=== PATIENT | female | born 1970 | race African-American/Black ===

== ENCOUNTER 2017-07-23 11:24 | Emergency (ER) | payer OTHER | END 2017-07-23 13:52 | disposition home or self-care (01) | LOC: ERS 11:24 | DX: M54.5 Low back pain (principal); G89.29 Other chronic pain; G43.909 Migraine, unspecified, not intractable, without status migrainosus; E03.9 Hypothyroidism, unspecified; I10 Essential (primary) hypertension; F31.9 Bipolar disorder, unspecified | CPT/HCPCS: 99283 ==

== ENCOUNTER 2017-09-13 09:44 | Outpatient (CLI) | payer OTHER ==
--- NOTE | 2017-09-18 14:52 | MMO ---
BILATERAL SCREENING MAMMOGRAM: INDICATION: Annual exam. COMPARISON: Prior exam dated 05/24/13. FINDINGS: The interpretation of this examination was assisted with computer-aided detection. There are scattered fibroglandular elements. There is a stable benign-appearing lymph node within the left breast. No suspicious mass, cluster of microcalcifications, or area of architectural distortion is evident. IMPRESSION: BI-RADS category 2 - benign. Recommend routine annual mammographic screening. POS: [facility]
== END 2017-09-13 09:45 | disposition home or self-care (01) ==
LOC: SCSMAMMO 09:44
PROVIDERS: ATTEND Family Medicine
DX: Z12.31 Encounter for screening mammogram for malignant neoplasm of breast (principal)
CPT/HCPCS: 77067

== ENCOUNTER 2018-07-15 20:39 | Observation (INO) | payer OTHER ==
--- NOTE | 2018-07-15 21:48 | RAD ---
TWO VIEW CHEST: Indications: Chest pain. FINDINGS: Lungs appear clear. No infiltrate or vascular congestion seen. Heart and mediastinum unremarkable. IMPRESSION: No acute abnormality. POS: [facility]
[2018-07-15 21:49] LABS: #Eosinphils 0.1 thou/uL (0.0-0.7); #Lymphocytes 0.7 thou/uL (1.20-3.40); #Monocytes 0.6 thou/uL (0.11-0.59); %Basophils 0.7 % (0.0-1.0); %Eosinophils 1.2 % (0.0-10.0); %Lymphocytes 15.9 % (21.0-51.0); %Monocytes 14.1 % (0.0-10.0); %Neutrophils 68.1 % (42.0-75.0); Hemoglobin 12.7 g/dL (12.0-16.0); Mean Corpuscular HGB CONC 31.9 g/dL (32.0-36.0); Mean Corpuscular Hemoglobin 27.1 pg (27.0-31.0); Mean Corpuscular Volume 84.7 fL (78.0-98.0); Mean Platelet Volume 7.5 fL (7.4-10.4); Platelet Count 263 thou/uL (130-400); RBC Distribution Width 14.4 % (11.5-14.5); White Blood Cell (WBC) Count 4.4 thou/uL (4.8-10.8)
[2018-07-15 22:12] LABS: ALT (SGPT) 35 U/L (8-55); AST (SGOT) 38 U/L (5-34); Albumin 3.7 g/dL (3.5-5.0); Alkaline Phosphatase 157 U/L (40-150); Anion Gap 15 mmol/L (10-20); BUN (Urea Nitrogen) 19 mg/dL (7.0-18.7); Bilirubin, Total 0.4 mg/dL (0.2-1.2); CK (CPK) 252 U/L (29-168); Calc. Creatinine Clearance 0 mL/min (70-130); Carbon Dioxide 20 mmol/L (22-29); Chloride 109 mmol/L (98-107); Estimated GFR-MDRD 29; Glucose 93 mg/dL (70-105); Lipase 44 U/L (8-78); Potassium 3.7 mmol/L (3.5-5.1); Protein, Total 9.7 g/dL (6.0-8.3); Sodium 140 mmol/L (136-145)
[2018-07-15] MEDS ORDERED: Nitroglycerin 2% Ointment 1 INCH/1 GM Packet ONE (23:40)
--- NOTE | 2018-07-16 01:15 | PDOC.FPRHP ---
- History of Present Illness Chief Complaint: Chest pain History of Present Illness: 48 yo AAF with PMH HTN, hypothyroid, bipolar, and schizophrenia, presents with sharp, burning sternal chest pain that radiates to her left arm and epigastric region for the past few days. Worse with exertion, associated with dyspnea. Pain lasts from 1-10 minutes, improves with rest. Not associated with sweats or nausea. Patient reports occasional palpitations. She also reports weakness in her legs with exertion, and states it feels "like my legs are going to give out on me." In the ED, CXR WNL. EKG showed possible Q waves, otherwise NSR. She was given nitropaste and ASA. - Allergies/Adverse Reactions Allergies Allergy/AdvReac Type Severity Reaction Status Date / Time aspirin Allergy Hives Verified 07/16/18 02:04 Sulfa (Sulfonamide Allergy Hives Verified 07/16/18 02:04 Antibiotics) trazodone Allergy Hives Verified 07/16/18 02:04 - Home Medications Medication Instructions Recorded Confirmed Type Benztropine [Cogentin] 2 mg PO HS 01/17/15 07/16/18 History Levothyroxine Sodium [Synthroid] 200 mcg PO DAILY 01/17/15 07/16/18 History Ziprasidone HCl [Geodon] 160 mg PO HS 01/17/15 07/16/18 History Metronidazole [metroNIDAZOLE] 500 tab PO DAILY 10/09/15 07/16/18 History Nortriptyline HCl 25 mg PO HS 10/09/15 07/16/18 History - History PMHx: bipolar, schizophrenia, HTN, hypothyroidism PSHx: cholecystecotmy, CSx5 FHx: CHF in mother, father, and grandmother; Cancer (unknown type) in great aunt Social: Denied tobacco, alcohol, or drug use - Review of Systems General: reports: weight/appetite/sleep changes (decreased appetite). denies: fever/chills, night sweats Eyes: reports: vision changes. denies: eye pain ENT: reports: nasal congestion, rhinorrhea, other (+sore throat) Respiratory: reports: cough, congestion, shortness of breath Cardiovascular: reports: chest pain, palpitation (occasional) Gastrointestinal: reports: abdominal pain. denies: nausea, vomiting, diarrhea, constipation, GI bleeding Genitourinary: denies: dysuria, other (no hematuria) Skin: denies: rashes, lesions Musculoskeletal: denies: pain, stiffness Neurological: reports: weakness. denies: numbness Psychological: reports: other (schizophrenia and bipolar) - Vital signs BP: [119/74] HR: [107] RR: [22] Tmax: [98] Pox: [97]% on [RA] Wt: [131 kg] - Physical Exam Constitutional: NAD, awake, alert and oriented HEENT: normocephalic and atraumatic, PERRLA, EOMI, conjunctiva clear, grossly normal hearing, MMM, oropharynx clear Neck: supple, other (+LAD) Heart: RRR, normal S1/S2, no murmurs/rubs/gallops, pulses present, no edema Lungs: CTAB, no respiratory distress, good air movement, no rales/rhonchi, no wheezing, no retractions Abdomen: soft, non-tender, bowel sounds present, other (no masses, exam limited by obesity) Musculoskeletal: normal structure, normal tone Neurological: CN II-XII intact, normal sensation, DTRs 2+ Skin: no rash/lesions, good turgor, other (cap refill >2 seconds) Heme/Lymphatic: no unusual bruising or bleeding, no purpura Psychiatric: intact recent and remote memory FMR H&P: Results - Labs Result Diagrams: 07/16/18 04:12 07/16/18 04:12 Lab results: WBC 4.4 thou/uL (4.8-10.8) L 07/15/18 21:43 Hgb 12.7 g/dL (12.0-16.0) 07/15/18 21:43 Hct 39.8 % (36.0-47.0) 07/15/18 21:43 MCV 84.7 fL (78.0-98.0) 07/15/18 21:43 Plt Count 263 thou/uL (130-400) 07/15/18 21:43 Neutrophils % 68.1 % (42.0-75.0) 07/15/18 21:43 Sodium 140 mmol/L (136-145) 07/15/18 21:43 Potassium 3.7 mmol/L (3.5-5.1) 07/15/18 21:43 Chloride 109 mmol/L (98-107) H 07/15/18 21:43 Carbon Dioxide 20 mmol/L (22-29) L 07/15/18 21:43 BUN 19 mg/dL (7.0-18.7) H 07/15/18 21:43 Creatinine 2.20 mg/dL (0.6-1.1) H 07/15/18 21:43 Glucose 93 mg/dL (70-105) 07/15/18 21:43 Calcium 10.0 mg/dL (7.8-10.44) 07/15/18 21:43 Total Bilirubin 0.4 mg/dL (0.2-1.2) 07/15/18 21:43 AST 38 U/L (5-34) H 07/15/18 21:43 ALT 35 U/L (8-55) 07/15/18 21:43 Alkaline Phosphatase 157 U/L (40-150) H 07/15/18 21:43 Creatine Kinase 252 U/L (29-168) H 07/15/18 21:43 Serum Total Protein 9.7 g/dL (6.0-8.3) H 07/15/18 21:43 Albumin 3.7 g/dL (3.5-5.0) 07/15/18 21:43 Lipase 44 U/L (8-78) 07/15/18 21:43 - EKG Interpretation EKG: possible q waves present - Radiology Interpretation Chest x-ray Status: image reviewed by me, report reviewed by me Additional comment: No acute cardiopulmonary process FMR H&P: A/P - Problem List (1) MARITZA (acute kidney injury) Current Visit: Yes Status: Acute Code(s): N17.9 - ACUTE KIDNEY FAILURE, UNSPECIFIED (2) Atypical chest pain Current Visit: No Status: Acute Code(s): R07.89 - OTHER CHEST PAIN (3) Bipolar 1 disorder Current Visit: No Status: Chronic Code(s): F31.9 - BIPOLAR DISORDER, UNSPECIFIED (4) GERD (gastroesophageal reflux disease) Current Visit: No Status: Chronic Code(s): K21.9 - GASTRO-ESOPHAGEAL REFLUX DISEASE WITHOUT ESOPHAGITIS (5) Hypertension Current Visit: No Status: Chronic Code(s): I10 - ESSENTIAL (PRIMARY) HYPERTENSION Qualifiers: Hypertension type: essential hypertension Qualified Code(s): I10 - Essential (primary) hypertension (6) Hypothyroidism Current Visit: No Status: Chronic Code(s): E03.9 - HYPOTHYROIDISM, UNSPECIFIED - Plan 48 yo F presents with atypical chest pain #Atypical chest pain, ACS vs PE vs GERD vs other - Exertional chest pain, associated with SOB, described as sharp and burning, improves with rest - Tachycardic to 107, R 22, BP stable, 97% on RA - EKG showed possible Q waves - CXR WNL - Lipase 44 - D-dimer elevated - Trop negx1 - VQ scan pending - Cardiolite stress in the AM - CK 252 #MARITZA -Cr increased to 2.2 -Avoid nephrotoxic agents #HTN -Losartan 50 mg PO daily #Bipolar, Schizophrenia -Continue nortriptyline, venlafaxine 75, quitiapine 300 mg nightly; -Benztropine mesylate 2 mg PO qhs -Continue geodon #Hypothyroid -Synthroid 200 mcg daily #Gerd -pantoprazole FMR H&P: Upper Level - Pertinent history 48F present for several day of CP, but with sudden worsening today. States that this has happen previously on frequent basis and she had seen a physician for this, was started on a medication, but doesn't know what it was. Pain happens at rest and while walking. She associate it with SOB, nausea and vomiting. 8/10 pain. Sharp, substernal. Not relieved with anything. She reports pre existing schizophrenic and bipolar disorder. She reports increased strength with her in the hospital. In ER, she was notdd to be tachy, pulse in the 100's. EKG found possible q waves , and without st changes. CXR and cardiac enzyme negative. D-dimer positive. Incidentally, found to have an MARITZA. Heart score 4, one each for moderate suspicion, age greater then 45, nonspecfic ekg changes and risk factor of obesity/thn - Pertinent findings Gen: alert, oriented, has many requests for nursing HEENT: Normocephalic, midline trachea, moist mucosal membrane CV: RRR with no apparent m/g/r Resp: CTA bilat GI: Soft, nontender, normoactive bowel Ext: No edema MSK: no deformeties noted, no pain on chest wall palpation Neuro: Apparently 1/5 strength in both LE, but nursing reports patient was capable of ambulating Psych: At time anxious, eccentric manner - Plan Date/Time: 07/16/18 0115 I, [Samuel Graf], have evaluated this patient and agree with findings/plan as outlined by internal recruiter resident. Pertinent changes/additions are listed here. 1. PE rule out - Concern with elevate d-dimer, tachycardia, subjective SOB - D-dimer may be elevated because of MARITZA - Plan for v-q scan as patient is hemodynamically stable and has MARITZA 2. ACS rule out - Trop negative, but has heart score 4 - Trend trop, stress test tomorrow 3. MARITZA - At this point, no obvious source based on history - Plan for empiric fluid hydration, recheck CMP - May consider FENA study if issues continue Attending Addendum - Attending Addendum Date/Time: 07/16/18 1606 I personally evaluated the patient and discussed the management with Dr. Higuera I agree with the History, Examination, Assessment and Plan documented above with any addition or exceptions noted below. 48 yo female with history of obesity and HTN presents for evaluation of intermittent chest pain. Patient reports intermittent chest pain over the past month. Sometimes provoked with activity. Sometimes provoked at rest. Burning type pain. Radiates to epigastric region. Occasionally associated with SOB. VS reviewed. Labs reviewed. Imaging reviewed. Atypical CP: Does not appear to be cardiac in nature. Heart score 3. Trop negative x3. No changes on ekg. CP resolved. Treat for GERD. Consider outpatient stress testing. MARITZA: Unsure etiology. Workup pending. Start on IVFs. CR improved overnight. Would add renal ultrasound with arterial dopplers. Elevated d-dimer: Likely related to MARITZA. Wells score = 1.5. V/Q scan low risk. HTN: Controlled. Javier
[2018-07-16 01:29] LABS: Troponin I 0.011 ng/mL (< 0.028)
[2018-07-16 01:44] VITALS: BMI 44.9
[2018-07-16] MEDS ORDERED: Ondansetron ODT 4 MG TAB SL PRN (01:48)
[2018-07-16] MEDS ORDERED: Ondansetron PF 4 MG/2 ML Vial IVP PRN (01:48)
[2018-07-16] MEDS ORDERED: Enoxaparin Sodium 30 MG/0.3 ML SYRINGE SC SCH ×2 (02:00→21:00)
[2018-07-16] MEDS ORDERED: Benztropine 1 MG TAB PO SCH ×2 (02:45→21:00)
[2018-07-16] MEDS ORDERED: Nortriptyline HCl 25 MG CAP PO SCH ×2 (02:45→21:00)
[2018-07-16] MEDS: Levothyroxine Sodium 100 MCG TAB PO SCH (04:23)
[2018-07-16] MEDS: Acetaminophen 325 MG TAB PO PRN ×2 (04:25→09:10)
[2018-07-16 05:06] LABS: #Eosinphils 0.1 thou/uL (0.0-0.7); #Lymphocytes 0.5 thou/uL (1.20-3.40); #Monocytes 0.5 thou/uL (0.11-0.59); #Neutrophils 2.1 thou/uL (1.40-6.50); %Basophils 0.6 % (0.0-1.0); %Eosinophils 1.7 % (0.0-10.0); %Lymphocytes 15.8 % (21.0-51.0); %Monocytes 14.1 % (0.0-10.0); %Neutrophils 67.8 % (42.0-75.0); Hemoglobin 11.2 g/dL (12.0-16.0); Mean Corpuscular HGB CONC 32.9 g/dL (32.0-36.0); Mean Corpuscular Hemoglobin 27.6 pg (27.0-31.0); Mean Platelet Volume 7.7 fL (7.4-10.4); Platelet Count 219 thou/uL (130-400); Red Blood Cell (RBC) Count 4.06 mill/uL (4.20-5.40); White Blood Cell (WBC) Count 3.2 thou/uL (4.8-10.8)
[2018-07-16 05:27] LABS: Anion Gap 12 mmol/L (10-20); BUN (Urea Nitrogen) 21 mg/dL (7.0-18.7); Calc. Creatinine Clearance 67 mL/min (70-130); Calcium 9.6 mg/dL (7.8-10.44); Carbon Dioxide 24 mmol/L (22-29); Cardiac Risk 4.2 (Less than 4.5); Chloride 107 mmol/L (98-107); Cholesterol 172 mg/dl (< 200 Desired); Estimated GFR-MDRD 30; Glucose 100 mg/dL (70-105); HDL Cholesterol 41 mg/dL (>60 Neg Risk); LDL Cholesterol, Calculated 111 mg/dL; Potassium 3.7 mmol/L (3.5-5.1); Sodium 139 mmol/L (136-145); Triglycerides 101 mg/dL (Less than 150)
[2018-07-16 05:31] LABS: Troponin I Less than 0.010 ng/mL (< 0.028)
[2018-07-16] MEDS ORDERED: Lactated Ringer's 1,000 ML IV SCH (09:00)
[2018-07-16] MEDS: Venlafaxine XR 37.5 MG CAP PO SCH (09:10)
[2018-07-16] MEDS: Losartan 25 MG TAB PO SCH (09:10)
[2018-07-16 09:11] LABS: Amphetamine Not Detected (NotDetected); Barbiturates Screen Detected (NotDetected); Benzodiazepine Screen Not Detected (NotDetected); Cocaine Metabolite Screen Not Detected (NotDetected); Medtox Control Line Valid? VALID (VALID); Medtox Reader # READER 4; Methadone Not Detected (NotDetected); Methamphetamine Not Detected (NotDetected); Opiate Screen Not Detected (NotDetected); Oxycodone Screen Not Detected (NotDetected); Phencyclidine (PCP) Not Detected (NotDetected); THC/Cannabinoid Screen Not Detected (NotDetected); Tricyclic Screen Detected (NotDetected)
[2018-07-16 09:41] LABS: Creatinine, Urine 52.54 mg/dL (47-110)
--- NOTE | 2018-07-16 11:24 | NM ---
VQ SCAN: HISTORY: Chest pain. TECHNIQUE: A ventilation perfusion scan was performed using 10.1 mCi Xenon-133 by inhalation for the ventilation study followed by the intravenous administration of 5.9 mCi technetium-99m MAA for the perfusion sca n. FINDINGS: Correlation is made with the chest radiograph of previous night. Fairly homogeneous tracer distribution is seen in the lungs on both ventilation perfusion scans witho ut mismatched. Pleural based, wedge-shaped, segmental/subsegmental perfusion defects. IMPRESSION: Very low probability for pulmonary embolism. POS: [facility]
[2018-07-16] MEDS ORDERED: Senokot 8.6 MG TAB PO PRN (11:28)
[2018-07-16] MEDS: Lactated Ringer's 1,000 ML IV SCH ×2 (12:00→20:09)
[2018-07-16] MEDS: Acetaminophen 500 MG TAB PO PRN ×3 (13:08→21:30)
[2018-07-16] MEDS ORDERED: Ondansetron PF 4 MG/2 ML Vial SLOW IVP PRN (20:25)
[2018-07-16] MEDS ORDERED: Ondansetron ODT 4 MG TAB PO PRN (20:25)
[2018-07-17] MEDS: Lactated Ringer's 1,000 ML IV SCH (02:29)
[2018-07-17] MEDS: Levothyroxine Sodium 100 MCG TAB PO SCH (04:57)
[2018-07-17 06:12] LABS: Anion Gap 10 mmol/L (10-20); BUN (Urea Nitrogen) 17 mg/dL (7.0-18.7); Calc. Creatinine Clearance 76 mL/min (70-130); Calcium 9.1 mg/dL (7.8-10.44); Carbon Dioxide 24 mmol/L (22-29); Chloride 107 mmol/L (98-107); Estimated GFR-MDRD 34; Glucose 92 mg/dL (70-105); Potassium 3.5 mmol/L (3.5-5.1); Sodium 137 mmol/L (136-145)
[2018-07-17 08:21] VITALS: BP 111/73; TEMP 97.9
[2018-07-17] MEDS: Losartan 25 MG TAB PO SCH (08:38)
[2018-07-17] MEDS: Venlafaxine XR 37.5 MG CAP PO SCH (08:38)
--- NOTE | 2018-07-17 11:54 | PDOC.FM ---
- Subjective Subjective: Pt reports feeling all better this AM. CP is resolved. SOB is resolved. Pt reports today that she has hx of GERD and that this pain has actually felt exactly like that GI pain that she frequently has. She does not take medications at home for this. no fever/chills, no sob no cp - Objective MAR Reviewed: Yes Vital Signs & Weight: Vital Signs (12 hours) Temp Pulse Resp BP BP Pulse Ox 07/17/18 07:47 97.9 F 86 18 111/73 92 L 07/17/18 05:00 84 18 105/72 94 L 07/17/18 00:00 98.1 F 90 16 94/57 L 94 L Weight Admit Weight 130.045 kg Weight 130.045 kg I&O: 07/16/18 07/17/18 07/18/18 06:59 06:59 06:59 Intake Total 300 3600 Output Total 275 Balance 25 3600 Result Diagrams: 07/16/18 04:12 07/17/18 05:32 Phys Exam - Physical Examination Constitutional: NAD HEENT: moist MMs, oral pharynx no lesions Neck: no nodes, no JVD Respiratory: no wheezing, clear to auscultation bilateral Cardiovascular: RRR, no significant murmur Gastrointestinal: soft, non-tender Musculoskeletal: no edema, pulses present Neurological: non-focal, normal sensation Lymphatic: no nodes Psychiatric: normal affect, A&O x 3 Skin: no rash, normal turgor Dx/Plan (1) MARITZA (acute kidney injury) Code(s): N17.9 - ACUTE KIDNEY FAILURE, UNSPECIFIED Status: Acute (2) Atypical chest pain Code(s): R07.89 - OTHER CHEST PAIN Status: Acute (3) Bipolar 1 disorder Code(s): F31.9 - BIPOLAR DISORDER, UNSPECIFIED Status: Chronic (4) GERD (gastroesophageal reflux disease) Code(s): K21.9 - GASTRO-ESOPHAGEAL REFLUX DISEASE WITHOUT ESOPHAGITIS Status: Chronic (5) Hypertension Code(s): I10 - ESSENTIAL (PRIMARY) HYPERTENSION Status: Chronic Qualifiers: Hypertension type: essential hypertension Qualified Code(s): I10 - Essential (primary) hypertension (6) Hypothyroidism Code(s): E03.9 - HYPOTHYROIDISM, UNSPECIFIED Status: Chronic (7) Schizophrenia Code(s): F20.9 - SCHIZOPHRENIA, UNSPECIFIED Status: Chronic - Plan Plan: 48 yo F presents with atypical chest pain Atypical chest pain, likely 2/2 GERD A- description today of pain is typical with gerd. EKG, and CXR WNL. D-dimer elevated on admission but VQ scan negative. trops negative. P- Will DC today with plans for outpt stress test - DC home with PPI MARITZA A-Cr increased to 2.2-> 1.89 (with fluids.), up from baseline of 1.7. Fena 2.1 showing intrinsic etiology. P- Will plan for outpt renal US. HTN -Losartan 50 mg PO daily Bipolar, Schizophrenia -Continue nortriptyline, venlafaxine 75, quitiapine 300 mg nightly; -Benztropine mesylate 2 mg PO qhs -Continue geodon Hypothyroid -Synthroid 200 mcg daily
--- NOTE | 2018-07-18 04:28 | DIS ---
DATE OF ADMISSION: 07/16/2018 DATE OF DISCHARGE: 07/17/2018 RESIDENT: Leo Interiano MD ADMITTING ATTENDING: Dr. Butts. DISCHARGE ATTENDING: Dr. Butts. CONSULTS: None. PROCEDURES: 1. On 07/15/2018, chest x-ray. Impression, no acute abnormality. 2. On 07/16/2018, pulmonary perfusion imaging. Impression, very low probability for pulmonary embolism. PRIMARY DIAGNOSIS: Atypical chest pain secondary to gastroesophageal reflux disease. SECONDARY DIAGNOSES: Acute kidney injury, hypertension, bipolar, schizophrenia, and hypothyroidism. DISCHARGE MEDICATIONS: 1. Ziprasidone 160 mg p.o. at bedtime, resumed at home. 2. Levothyroxine sodium 200 mcg p.o. daily. 3. Benztropine 2 mg p.o. at bedtime. 4. Nortriptyline 25 mg p.o. at bedtime. 5. Acetaminophen 1000 mg p.o. q.4 hours p.r.n. 6. Losartan 50 mg p.o. daily. 7. Pantoprazole 40 mg p.o. daily. 8. Quetiapine fumarate 300 mg p.o. at bedtime, continued from home. 9. Venlafaxine 75 mg p.o. daily. DISCONTINUED MEDICATIONS: Metronidazole 500 mg p.o. daily. HISTORY OF PRESENT ILLNESS/HOSPITAL COURSE: This is a 48-year-old female, who presented to the emergency department with complaint of chest pain. Originally, the patient had complained that the chest pain was exertional and relieved by rest. However, the pain was sharp and substernal with radiation to the stomach. The patient was admitted for workup and rule out of coronary artery disease, etiology of chest pain. Troponins were negative x3. EKG was unremarkable as was chest x-ray. There was also concern for pulmonary embolism, so a V/Q scan was performed, which was also negative. On further history gaining from the patient, the patient reported the pain felt just like her long-standing gastroesophageal reflux disease pain and that taking pantoprazole in the hospital had made the pain go away. The patient was deemed stable for discharge and sent home with plans for outpatient stress test to complete workup and ruling out any cardiac etiology of pain, although the patient is extremely low risk and description of pain was not concerning. Hospital stay was otherwise complicated by acute kidney injury with creatinine reaching up to 2.13. Urine studies were done and FENa was calculated to be 2.1, which indicates intrinsic injury, although the patient's creatinine did react well to IV fluids reducing down to 1.89. All other chronic issues were managed with home medications. DISPOSITION: Stable. DISCHARGE INSTRUCTIONS: LOCATION: Home. DIET: Heart healthy. ACTIVITY: As tolerated. FOLLOWUP: Follow up with Dr. Cisse in seven days. Job ID: [id number]
== END 2018-07-17 10:42 | disposition home or self-care (01) ==
LOC: ERS 20:39 → 2SW 07-16 01:16
PROVIDERS: ADMIT Student in an Organized Health Care Education/Training Program; ATTEND Student in an Organized Health Care Education/Training Program
DX: K21.9 Gastro-esophageal reflux disease without esophagitis (principal); I10 Essential (primary) hypertension; N17.9 Acute kidney failure, unspecified; E03.9 Hypothyroidism, unspecified; F31.9 Bipolar disorder, unspecified; F20.9 Schizophrenia, unspecified; Z88.6 Allergy status to analgesic agent; Z88.2 Allergy status to sulfonamides; Z88.8 Allergy status to other drugs, medicaments and biological substances; Z90.49 Acquired absence of other specified parts of digestive tract; Z79.899 Other long term (current) drug therapy; Z98.890 Other specified postprocedural states
CPT/HCPCS: 36415; 71046; 78582; 80048; 80053; 80061; 80306; 82550; 82570; 83690; 84300; 84443; 84484; 85025; 85379; 93005; 96361; 96372; 96374; A9540; A9558; G0378; J1650; J2405

== ENCOUNTER 2018-08-15 12:20 | Observation (INO) | payer OTHER ==
--- NOTE | 2018-08-15 13:50 | RAD ---
CHEST TWO VIEWS: INDICATIONS: Chest pain. COMPARISON: 07/15/2018 FINDINGS: There are faint nodular densities, one of which overlies the superolateral left chest and the other a t the right lower lung zone, laterally. There is no lobar consolidation, effusion, or pneumothorax. The cardiac silhouette is normal in size. IMPRESSION: Faint nodular densities overlying the chest bilaterally. The possibility of underlying pulmonary nod ules is not excluded. Therefore, recommend a short-term follow-up two view chest series. If finding s persist on the follow-up exam, a CT thorax would be indicate to exclude underlying pulmonary nodule s. CODE LN POS: [facility]
[2018-08-15 14:05] LABS: #Lymphocytes 0.6 thou/uL (1.20-3.40); #Monocytes 0.3 thou/uL (0.11-0.59); #Neutrophils 1.1 thou/uL (1.40-6.50); %Eosinophils 0.5 % (0.0-10.0); %Lymphocytes 28.1 % (21.0-51.0); %Monocytes 14.5 % (0.0-10.0); %Neutrophils 56.9 % (42.0-75.0); Hemoglobin 11.2 g/dL (12.0-16.0); Mean Corpuscular HGB CONC 32.8 g/dL (32.0-36.0); Mean Corpuscular Hemoglobin 27.1 pg (27.0-31.0); Mean Corpuscular Volume 82.6 fL (78.0-98.0); Mean Platelet Volume 8.2 fL (7.4-10.4); Platelet Count 182 thou/uL (130-400); RBC Distribution Width 14.6 % (11.5-14.5); Red Blood Cell (RBC) Count 4.15 mill/uL (4.20-5.40)
[2018-08-15 14:27] LABS: ALT (SGPT) 40 U/L (8-55); AST (SGOT) 42 U/L (5-34); Alkaline Phosphatase 181 U/L (40-150); Anion Gap 12 mmol/L (10-20); BUN (Urea Nitrogen) 12 mg/dL (7.0-18.7); Bilirubin, Total 0.5 mg/dL (0.2-1.2); CK (CPK) 86 U/L (29-168); Calc. Creatinine Clearance 0 mL/min (70-130); Carbon Dioxide 22 mmol/L (22-29); Chloride 108 mmol/L (98-107); Estimated GFR-MDRD 38; Glucose 103 mg/dL (70-105); Potassium 3.8 mmol/L (3.5-5.1); Sodium 138 mmol/L (136-145)
[2018-08-15 15:01] LABS: BHCG - Serum Negative (NEGATIVE); Pregs Control Background? CLEAR/WHITE (CLR/WHITE); Pregs Control Bar Appear? YES (CONTROL BAR)
--- NOTE | 2018-08-15 16:08 | CT ---
CT ARTERIOGRAM CHEST WITH IV CONTRAST AND 3D MIP IMAGING: History: Chest pain. FINDINGS: There is good contrast opacification, pulmonary arteries and thoracic aorta with bovine origin of gre at vessels from the aortic arch. Scattered mild parenchymal opacity, favored to not be of significanc e. No pleural fluid or pneumothorax. Within the partially visualized upper abdomen, spleen is markedly enlarged at 17.3 cm length and is o f much greater volume than on prior CT abdomen from 2015. IMPRESSION: 1. No CT evidence of pulmonary embolus. 2. Severe splenomegaly. Cause is not evident. POS: [facility]
--- NOTE | 2018-08-15 18:02 | PDOC.FPRHP ---
- History of Present Illness Chief Complaint: chest pain History of Present Illness: 48 yo F with PMH HTN, hypothyroid presents for CP. Patient was seen at [facility] today and was complaining of symptoms and was told to go to ED for evaluation. Complains of chest pain that has continued since June. Pain is intermittent , center of chest, radiates to back of neck. Feel like "sitting on chest" and muscle spasm. Denies aggravating or alleviating factors, 03/09. Will come and go randomly, at rest as well. Endorses anxiousness, SOB at rest, not sleeping well , has chills when feels emotional. These symptoms have all been present over past couple weeks. - Allergies/Adverse Reactions Allergies Allergy/AdvReac Type Severity Reaction Status Date / Time aspirin Allergy Hives Verified 07/16/18 02:04 ibuprofen Allergy Hives Verified 08/15/18 22:49 Sulfa (Sulfonamide Allergy Hives Verified 07/16/18 02:04 Antibiotics) trazodone Allergy Hives Verified 07/16/18 02:04 - Home Medications Medication Instructions Recorded Confirmed Type Benztropine [Cogentin] 2 mg PO HS 01/17/15 08/15/18 History Levothyroxine Sodium [Synthroid] 200 mcg PO DAILY 01/17/15 08/15/18 History Ziprasidone HCl [Geodon] 160 mg PO HS 01/17/15 08/15/18 History Nortriptyline HCl 25 mg PO HS 10/09/15 08/15/18 History Losartan [Cozaar] 50 mg PO DAILY #30 tab 07/17/18 08/15/18 Rx Pantoprazole [Protonix] 40 mg PO DAILY #30 tab 07/17/18 08/15/18 Rx QUEtiapine Fumarate [SEROquel] 300 mg PO HS tab 07/17/18 08/15/18 Rx Gabapentin 300 mg PO DAILY 08/15/18 08/15/18 History Mirtazapine [Remeron] 30 mg PO HS 08/15/18 08/15/18 History hydrOXYzine HCl [Hydroxyzine HCl] 25 mg PO HS 08/15/18 08/15/18 History - History PMHx: bipolar, schizophrenia, HTN, hypothyroidism, GERD, CKD3 PSHx: cholecystecotmy, CSx5 FHx: CHF in mother, father, and grandmother; Cancer (unknown type) in great aunt Social: Denied tobacco, alcohol, or drug use - Review of Systems General: reports: weight/appetite/sleep changes (poor sleep), fatigue. denies: fever/chills ENT: denies: nasal congestion Respiratory: reports: shortness of breath. denies: cough, congestion Cardiovascular: reports: chest pain. denies: palpitation, edema Gastrointestinal: reports: nausea, abdominal pain (diffuse). denies: vomiting, diarrhea, constipation Genitourinary: denies: dysuria Skin: denies: rashes Musculoskeletal: reports: pain, tenderness Neurological: reports: weakness Psychological: reports: anxiety, depression - Vital signs BP: 91/58 HR: 119 RR: 19 Tmax: 98.3 Pox: 96%% on RA Wt: 126 kg - Physical Exam Constitutional: awake, alert and oriented HEENT: normocephalic and atraumatic, PERRLA, MMM Chest: other (mid chest very TTP) Heart: RRR, normal S1/S2, no murmurs/rubs/gallops, no edema Lungs: CTAB, no respiratory distress Abdomen: soft, non-tender, bowel sounds present Musculoskeletal: normal structure, normal tone Neurological: no focal deficit Skin: capillary refill <2 seconds FMR H&P: Results - Labs Result Diagrams: 08/16/18 04:40 08/16/18 04:40 Lab results: WBC 2.0 thou/uL (4.8-10.8) L 08/15/18 13:52 Hgb 11.2 g/dL (12.0-16.0) L 08/15/18 13:52 Hct 34.2 % (36.0-47.0) L 08/15/18 13:52 MCV 82.6 fL (78.0-98.0) 08/15/18 13:52 Plt Count 182 thou/uL (130-400) 08/15/18 13:52 Neutrophils % 56.9 % (42.0-75.0) 08/15/18 13:52 Sodium 138 mmol/L (136-145) 08/15/18 13:52 Potassium 3.8 mmol/L (3.5-5.1) 08/15/18 13:52 Chloride 108 mmol/L (98-107) H 08/15/18 13:52 Carbon Dioxide 22 mmol/L (22-29) 08/15/18 13:52 BUN 12 mg/dL (7.0-18.7) 08/15/18 13:52 Creatinine 1.74 mg/dL (0.6-1.1) H 08/15/18 13:52 Glucose 103 mg/dL (70-105) 08/15/18 13:52 Calcium 10.0 mg/dL (7.8-10.44) 08/15/18 13:52 Total Bilirubin 0.5 mg/dL (0.2-1.2) 08/15/18 13:52 AST 42 U/L (5-34) H 08/15/18 13:52 ALT 40 U/L (8-55) 08/15/18 13:52 Alkaline Phosphatase 181 U/L (40-150) H 08/15/18 13:52 Creatine Kinase 86 U/L (29-168) 08/15/18 13:52 Serum Total Protein 9.0 g/dL (6.0-8.3) H 08/15/18 13:52 Albumin 4.0 g/dL (3.5-5.0) 08/15/18 13:52 FMR H&P: A/P - Problem List (1) Atypical chest pain Current Visit: No Status: Acute Code(s): R07.89 - OTHER CHEST PAIN (2) Hypersplenism Current Visit: Yes Status: Acute Code(s): D73.1 - HYPERSPLENISM (3) Bipolar 1 disorder Current Visit: No Status: Chronic Code(s): F31.9 - BIPOLAR DISORDER, UNSPECIFIED (4) GERD (gastroesophageal reflux disease) Current Visit: No Status: Chronic Code(s): K21.9 - GASTRO-ESOPHAGEAL REFLUX DISEASE WITHOUT ESOPHAGITIS (5) Hypertension Current Visit: No Status: Chronic Code(s): I10 - ESSENTIAL (PRIMARY) HYPERTENSION Qualifiers: Hypertension type: essential hypertension Qualified Code(s): I10 - Essential (primary) hypertension (6) Hypothyroidism Current Visit: No Status: Chronic Code(s): E03.9 - HYPOTHYROIDISM, UNSPECIFIED (7) Schizophrenia Current Visit: No Status: Chronic Code(s): F20.9 - SCHIZOPHRENIA, UNSPECIFIED - Plan Atypical chest pain - patient admitted for CP 06/2018, but left AMA before stress test was completed - Heart score 4 - CP reproducible and likely 2/2 MSK etiology - give tylenol and muscle relaxant. Could likely benefit from NSAID when ACS is ruled out. - trop neg x2, trend one more - EKG sinus tachycardia, 109 - NPO @ midnight, stress test in am Elevated D-dimer - 5.7 in ED. CTA ruled out PE Severe splenomegaly - found incidentally on CT, no known cause - in associated with WBC 2, anemia - will pursue further workup with peripheral smear, retic, LDH - HIV, HCV, RPR, monospot, UDS, MARGARET - may consider need for further imaging w/ multiphase CT ab w/ contrast to rule out vein thrombosis Leukopenia - WBC 2, was 3.2 in 07/27. Downtrending over fall of 2017. Normocytic anemia - Hgb 10.9 - Has been downtrending since 06/2018 CKDIII - Cr 1.74 on admission, improved from prior admission Bipolar/schizoprenia - continue home seroquel, nortriptyline. Unsure what current psych regimen is per [facility] HTN - continue home losartan GERD - continue home nexium Hypothyroid - continue home synthroid Ppx: Lovenox Dispo: admit to telemetry for observation FMR H&P: Upper Level - Pertinent history 48 y/o F w/ PMHx of obesity and HTN presents for evaluation of intermittent pressure like chest pain w/ associated SOB. Reports pain is like a muscle cramp and someone sitting on her chest in character. Reports associate w/ SOB. No worsening w/ exertion. No exacerbating or relieving factors. No hx of CAD. Does not smoke. Hx of HLD. FHx of cardiac disease. Reports pain comes and goes while at rest and will radiate to the back of her neck. Will resolve spontaneously. Reports she feels anxious when this happens. Pt reports having intermittent chills as well. - Pertinent findings Vitals per exercise science internship note Trop - <0.01 WBC - 2.0 HGB - 11.2 MCV - 82 D-Dimer - 5.56 CTA - No PE. Severe splenomegaly CXR - Faint nodular densities overlying the lung pereira b/l EKG - sinus tach rate 109 bpm PE: GEN: Obese, resting in bed CARD: RRR, no mumur. Pain reproducible on palpation. PULM: Distant breath sounds throughout. No audible wheezes, rales, or rhonci GI: Soft, NTTP, BSx4 LYMPH: No overt LAD identified - Plan Date/Time: 08/15/18 180 Chuy Madison MD, have evaluated this patient and agree with findings/plan as outlined by exercise science internship resident. Pertinent changes/additions are listed here. 48 y/o F w/: 1) Atypical chest Pain (HEART Score = 4) - Admit tele/obs - Will plan to pharm stress test to further eval - Check TSH, A1c - Give aspirin and trend cardiac enzymes - NPO at midnight 2) Severe splenomegaly - Unknown cause at this point in time - Will check peripheral smear, retic count, and LDH to eval for possible underyling hemolytic disease such as hereditary spherocytosis as well as malignant etiologies such as CLL - Will obtain a monospot to rule this out as possible cause - Will check for sickle cell as well as thalassemia as well - Low likelyhood of acute hepatitis as cause w/ normal LFT's - Will obtain UDS - Will eval for possible chronic inflammatory disease as etiology such as lupus , and RA - In setting of leukopenia will eval for possible HIV, HCV, and RPR as possible cause - Will consider CT-AP w/ contrast for further eval of possible potal/hepatic/ splenic veins as etiology given elevated D-dimer 3) Leukopenia - As above in #2 4) Other chronic medical problems per exercise science internship note Assessment and Plan discussed w/ Dr. Bradshaw who is in agreement. Addendum - Attending - Attending Attestation Date/Time: 08/16/18 1214 I personally evaluated the patient and discussed the management with Dr. Cisse and Emilie on 08/15/2017 I agree with and repeated the History, Examination, Assessment and Plan documented above with any addition or exceptions noted below.
[2018-08-15 18:41] LABS: Troponin I Less than 0.010 ng/mL (< 0.028)
[2018-08-15] MEDS ORDERED: Ondansetron ODT 4 MG TAB PO PRN (18:48)
[2018-08-15 19:42] VITALS: BMI 44.9
[2018-08-15 19:56] LABS: Amphetamine Not Detected (NotDetected); Barbiturates Screen Detected (NotDetected); Benzodiazepine Screen Not Detected (NotDetected); Cocaine Metabolite Screen Not Detected (NotDetected); Medtox Control Line Valid? VALID (VALID); Medtox Reader # READER 1; Methadone Not Detected (NotDetected); Methamphetamine Not Detected (NotDetected); Opiate Screen Not Detected (NotDetected); Oxycodone Screen Not Detected (NotDetected); Phencyclidine (PCP) Not Detected (NotDetected); THC/Cannabinoid Screen Not Detected (NotDetected); Tricyclic Screen Detected (NotDetected)
[2018-08-15 20:11] LABS: Bilirubin Negative (Negative); Blood, Urine Negative (Negative); Clarity CLEAR (Clear); Glucose, Urine (Dipstick) Negative (Negative); Leukocyte Trace (Negative); Nitrite Negative (Negative); Protein, Urine (Dipstick) Negative (Neg-Trace); Specific Gravity, Urine 1.018 (1.002-1.036); pH, Urine 5.5 (5.0-9.0)
[2018-08-15 20:14] LABS: Bacteria/HPF None Seen HPF (None Seen); Hyaline Casts/LPF 0-3 HYALINE CAST LPF (0-3 Hyaline); RBC/HPF 0-3 HPF (0-3); Squamous Epithelial None Seen HPF (0-3); WBC/HPF 0-3 HPF (0-3)
[2018-08-15 20:15] LABS: Urine Culture Reflex Yes Yes
[2018-08-15 20:41] LABS: Reticulocyte Count 2.1 % (0.5-1.5)
[2018-08-15 21:01] LABS: Band 4 % (5-11); Hemoglobin 10.4 g/dL (12.0-16.0); Lymphocytes 20 % (21-51); MDiff Complete? YES; Mean Corpuscular Hemoglobin 28.1 pg (27.0-31.0); Mean Corpuscular Volume 82.4 fL (78.0-98.0); Mean Platelet Volume 7.9 fL (7.4-10.4); Monocytes 10 % (0-10); Neutrophil 66 % (42-75); Platelet Count 157 thou/uL (130-400); Platelet Morphology Comment Appears Adequate; RBC Distribution Width 14.7 % (11.5-14.5); RBC Morphology Normal; White Blood Cell (WBC) Count 1.7 thou/uL (4.8-10.8)
[2018-08-15 21:05] LABS: Troponin I Less than 0.010 ng/mL (< 0.028)
[2018-08-15 21:15] LABS: Syphilis Antibody Nonreactive (Nonreactive)
[2018-08-15 21:27] LABS: MONO NEGATIVE CONTROL ZONE White (Negative) (White); MONO POSITIVE CONTROL Pink Line (Positive) (PINK/RED); Mononucleosis NEGATIVE (NEGATIVE)
[2018-08-15] MEDS: Acetaminophen 325 MG TAB PO PRN (22:53)
[2018-08-15 23:04] LABS: Hep C IgG Ab Non-Reactive (NonReactive); Hep C Index 0.07 S/CO (0-0.79)
[2018-08-15 23:06] LABS: HIV (1/2) Antibody/Antigen Non-Reactive (NonReactive); HIV 1/2 INDEX 0.11 S/CO (<1.00)
[2018-08-16 05:11] LABS: Anion Gap 10 mmol/L (10-20); BUN (Urea Nitrogen) 13 mg/dL (7.0-18.7); Calc. Creatinine Clearance 87 mL/min (70-130); Calcium 8.9 mg/dL (7.8-10.44); Carbon Dioxide 20 mmol/L (22-29); Chloride 110 mmol/L (98-107); Estimated GFR-MDRD 42; Glucose 100 mg/dL (70-105); Potassium 3.8 mmol/L (3.5-5.1); Sodium 136 mmol/L (136-145)
[2018-08-16] MEDS: Levothyroxine Sodium 100 MCG TAB PO SCH (05:30)
[2018-08-16 05:34] LABS: Band 6 % (5-11); Hemoglobin 10.1 g/dL (12.0-16.0); Lymphocytes 28 % (21-51); MDiff Complete? YES; Mean Corpuscular HGB CONC 34.1 g/dL (32.0-36.0); Mean Corpuscular Hemoglobin 28.1 pg (27.0-31.0); Mean Corpuscular Volume 82.5 fL (78.0-98.0); Monocytes 8 % (0-10); Neutrophil 58 % (42-75); Platelet Count 137 thou/uL (130-400); Platelet Morphology Comment Appears Adequate; RBC Distribution Width 14.5 % (11.5-14.5); Red Blood Cell (RBC) Count 3.61 mill/uL (4.20-5.40); White Blood Cell (WBC) Count 1.9 thou/uL (4.8-10.8)
--- NOTE | 2018-08-16 06:53 | PDOC.FM ---
- Subjective Subjective: Patient resting comfortably this morning. Patient tearful and expresses that she "does not want to go home" as she feels she will "do something" to herself if she does. Patient did not explicitly state a plan for what she would do. Patient states that she has family issues and they are not supporting her. She also has concerns about telling her things in her life which she fears he will leave her if she tells him. Patient was seen at [facility] yesterday and sent over for chest pain. Patient fears that [facility] will send her to a "home" and away from her . Patient denies current chest pain or palpitations this morning. Patient does endorse some abdominal pain, unable to locate. - Objective MAR Reviewed: Yes Vital Signs & Weight: Vital Signs (12 hours) Temp Pulse Resp BP Pulse Ox 08/16/18 04:00 98.6 F 95 16 120/64 94 L 08/15/18 23:36 98.5 F 110 H 12 106/66 95 08/15/18 18:53 97.8 F 128 H 20 121/83 97 Weight Weight 126.688 kg I&O: 08/14/18 08/15/18 08/16/18 06:59 06:59 06:59 Intake Total 660 Output Total 900 Balance -240 Result Diagrams: 08/16/18 04:40 08/16/18 04:40 Phys Exam - Physical Examination Constitutional: NAD HEENT: moist MMs, sclera anicteric Neck: supple, full ROM Respiratory: clear to auscultation bilateral Cardiovascular: RRR tender to palpation Gastrointestinal: soft, no distention, positive bowel sounds tender to deep palpation of RUQ and LUQ; spleen tip palpable Musculoskeletal: no edema Neurological: non-focal Psychiatric: A&O x 3 Deviation from normal: tearful on exam Dx/Plan (1) Hypersplenism Code(s): D73.1 - HYPERSPLENISM Status: Acute (2) MARITZA (acute kidney injury) Code(s): N17.9 - ACUTE KIDNEY FAILURE, UNSPECIFIED Status: Acute (3) Atypical chest pain Code(s): R07.89 - OTHER CHEST PAIN Status: Acute (4) GERD (gastroesophageal reflux disease) Code(s): K21.9 - GASTRO-ESOPHAGEAL REFLUX DISEASE WITHOUT ESOPHAGITIS Status: Chronic (5) Hypertension Code(s): I10 - ESSENTIAL (PRIMARY) HYPERTENSION Status: Chronic Qualifiers: Hypertension type: essential hypertension Qualified Code(s): I10 - Essential (primary) hypertension (6) Hypothyroidism Code(s): E03.9 - HYPOTHYROIDISM, UNSPECIFIED Status: Chronic (7) Schizophrenia Code(s): F20.9 - SCHIZOPHRENIA, UNSPECIFIED Status: Chronic - Plan Plan: Atypical chest pain - patient admitted for CP 06/2018, but left AMA before stress test was completed - Heart score 4; CP reproducible and likely 2/2 MSK etiology - give tylenol and muscle relaxant. Could likely benefit from NSAID when ACS is ruled out. - trop neg x3; EKG sinus tachycardia, 95-128 - Stress test negative for ischemia Elevated D-dimer - 5.7 in ED. CTA ruled out PE Severe splenomegaly - found incidentally on CT, no known cause - associated with WBC 2, anemia - will pursue further workup with peripheral smear, retic - 2.1; LDH - elevated - HIV, HCV, RPR, monospot - Neg; UDS - pos for barbiturates and tricyclics; MARGARET pending - Will order multiphase CT ab w/ contrast to rule out vein thrombosis Leukopenia - WBC 2, was 3.2 in 07/27. Downtrending over fall of 2017. Normocytic anemia - Hgb 10.9 - Has been downtrending since 06/2018 CKDIII - Cr 1.74 on admission, improved from prior admission Bipolar/schizoprenia - continue home seroquel, nortriptyline. Unsure what current psych regimen is per [facility] - MR consulted as patient admits to suicidal ideations; patient states she is depressed on exam HTN - continue home losartan GERD - continue home nexium Hypothyroid - continue home synthroid Ppx: Lovenox Dispo: admit to telemetry for observation, stress test, [facility] consulted Addendum - Attending - Attending Attestation Date/Time: 08/16/18 9627 I personally evaluated the patient and discussed the management with Dr. Melendez I agree with the History, Examination, Assessment and Plan documented above with any addition or exceptions noted below. Chest pain stress test today incidental splenomegaly needs further evaluation . Patient still with active suicidal ideation.
[2018-08-16] MEDS: Enoxaparin Sodium 40 MG/0.4 ML SYRINGE SC SCH (09:07)
[2018-08-16] MEDS: Losartan 25 MG TAB PO SCH (09:08)
[2018-08-16] MEDS: Gabapentin 300 MG CAP PO SCH (09:08)
[2018-08-16] MEDS: Acetaminophen 325 MG TAB PO PRN ×2 (11:05→16:42)
[2018-08-16] MEDS ORDERED: Iopamidol 370 76% 100 ML VIAL ONE (11:24)
--- NOTE | 2018-08-16 12:36 | NM ---
RADIONUCLIDE STRESS ONLY MYOCARDIAL PERFUSION SCAN WITH CT ATTENUATION CORRECTION AND SPECT IMAGING: LEFT VENTRICULAR WALL MOTION EVALUATION AND EJECTION FRACTION: HISTORY: Chest pain. FINDINGS: Adenosine protocol. There is homogeneous uptake of radiotracer throughout the left ventricular myocardium. No focal perf usion defect is apparent. QGS analysis of gated SPECT images show no focal wall motion abnormalities . Ejection fraction is calculated at 63%. IMPRESSION: 1. Normal myocardial perfusion stress only examination. 2. Normal left ventricular ejection fraction. POS: [facility]
--- NOTE | 2018-08-16 17:27 | CT ---
CT ABDOMEN AND PELVIS WITH AND WITHOUT IV CONTRAST: 08/16/18 HISTORY: Abdominal pain. Splenomegaly. COMPARISON: Correlated with CT arteriogram chest from 08/15/18. FINDINGS: Lung bases are clear. Gallbladder is surgically absent. Spleen remains enlarged at 17.3 cm. No focal abnormalities. After administration of IV contrast, there is good opacification of the splenic vein and portal venou s system. No filling defects. Urinary bladder is unremarkable. No bowel obstruction or inflammation a re visible. Appendix is not inflamed. IMPRESSION: No evidence of splenic vein or portal vein thrombosis. Splenomegaly. Cause is not evident. Status post cholecystectomy. POS: [facility]
[2018-08-16] MEDS ORDERED: hydrOXYzine 25 MG TAB PO SCH (21:00)
[2018-08-16] MEDS ORDERED: Mirtazapine 30 MG TAB PO SCH (21:00)
[2018-08-16] MEDS ORDERED: Nortriptyline HCl 25 MG CAP PO SCH ×2 (21:00→22:00)
[2018-08-16] MEDS ORDERED: Benztropine 1 MG TAB PO SCH (21:00)
[2018-08-17] MEDS: Levothyroxine Sodium 100 MCG TAB PO SCH (05:10)
[2018-08-17] MEDS: Acetaminophen 325 MG TAB PO PRN (05:11)
--- NOTE | 2018-08-17 06:31 | PDOC.FM ---
- Subjective Subjective: Patient resting comfortably in bed. No acute distress. Patient states that [facility] came yesterday, she feels like she is in a better place and ready to go home. Patient denies SI this morning. Moustapha HI. States she will not hurt herself if she goes home. Patient states she does not have a ride home and will need assistance w/ transport. Denies chest pain, sob, palpitations, abdominal pain. - Objective MAR Reviewed: Yes Vital Signs & Weight: Vital Signs (12 hours) Temp Pulse Resp BP BP BP Pulse Ox 08/17/18 05:08 98.4 F 93 17 90/67 95 08/16/18 22:15 120/80 08/16/18 19:54 98.5 F 95 18 97/61 95 Weight Weight 124.602 kg I&O: 08/15/18 08/16/18 08/17/18 06:59 06:59 06:59 Intake Total 660 1330 Output Total 900 Balance -240 1330 Result Diagrams: 08/17/18 07:58 08/17/18 07:58 Phys Exam - Physical Examination Constitutional: NAD HEENT: moist MMs, sclera anicteric Neck: supple, full ROM Respiratory: clear to auscultation bilateral Cardiovascular: RRR Gastrointestinal: soft, no distention, positive bowel sounds tender to deep palpation of RUQ and LUQ Musculoskeletal: no edema Neurological: non-focal, moves all 4 limbs Psychiatric: A&O x 3 Dx/Plan (1) Hypersplenism Code(s): D73.1 - HYPERSPLENISM Status: Acute (2) MARITZA (acute kidney injury) Code(s): N17.9 - ACUTE KIDNEY FAILURE, UNSPECIFIED Status: Acute (3) Atypical chest pain Code(s): R07.89 - OTHER CHEST PAIN Status: Acute (4) GERD (gastroesophageal reflux disease) Code(s): K21.9 - GASTRO-ESOPHAGEAL REFLUX DISEASE WITHOUT ESOPHAGITIS Status: Chronic (5) Hypertension Code(s): I10 - ESSENTIAL (PRIMARY) HYPERTENSION Status: Chronic Qualifiers: Hypertension type: essential hypertension Qualified Code(s): I10 - Essential (primary) hypertension (6) Hypothyroidism Code(s): E03.9 - HYPOTHYROIDISM, UNSPECIFIED Status: Chronic (7) Schizophrenia Code(s): F20.9 - SCHIZOPHRENIA, UNSPECIFIED Status: Chronic - Plan Plan: Atypical chest pain, resolved - patient admitted for CP 06/2018, but left AMA before stress test was completed - Heart score 4; CP reproducible and likely 2/2 MSK etiology - give tylenol and muscle relaxant. Could likely benefit from NSAID when ACS is ruled out. - trop neg x3; EKG sinus tachycardia, 95-128 - Stress test normal, normal EF - resolution of chest pain Elevated D-dimer - 5.7 in ED. CTA ruled out PE Severe splenomegaly - found incidentally on CT, no known cause - associated with WBC 2, anemia - will pursue further workup with peripheral smear- normal, retic - 2.1; LDH - elevated - HIV, HCV, RPR, monospot - Neg; UDS - pos for barbiturates and tricyclics - Multiphase CT ab w/ contrast: no splenic vein or protal vein thrombosis, splenomegaly - no cause evident, s/p lyn Leukopenia - WBC 2, was 3.2 in 07/27. Downtrending over fall of 2017. - Recommend outpatient hematology workup Normocytic anemia - Hgb 10.9 - Has been downtrending since 06/2018 CKDIII - Cr 1.74 on admission, improved from prior admission Bipolar/schizoprenia - continue home seroquel, nortriptyline. Unsure what current psych regimen is per [facility] consulted; states patient is ready to go home; safe for discharge HTN - continue home losartan GERD - continue home nexium Hypothyroid - continue home synthroid Ppx: Lovenox Dispo: discharge home today, follow up w/ [facility] outpatient Addendum - Attending - Attending Attestation Date/Time: 08/17/18 5160 I personally evaluated the patient and discussed the management with Dr. Melendez I agree with the History, Examination, Assessment and Plan documented above with any addition or exceptions noted below.Patient stable for dismissal will continue further outpt evaluation of splenomegaly. She will f/u with [facility] as scheduled resume current meds she denies suicidal ideation and has a safety plan. Cardiac w/u normal
[2018-08-17 08:16] LABS: #Lymphocytes 0.5 thou/uL (1.20-3.40); #Monocytes 0.3 thou/uL (0.11-0.59); #Neutrophils 1.3 thou/uL (1.40-6.50); %Basophils 1.6 % (0.0-1.0); %Eosinophils 0.5 % (0.0-10.0); %Lymphocytes 22.7 % (21.0-51.0); %Monocytes 14.6 % (0.0-10.0); %Neutrophils 60.6 % (42.0-75.0); Hemoglobin 10.2 g/dL (12.0-16.0); Mean Corpuscular HGB CONC 33.2 g/dL (32.0-36.0); Mean Corpuscular Hemoglobin 27.2 pg (27.0-31.0); Mean Corpuscular Volume 81.9 fL (78.0-98.0); Mean Platelet Volume 7.6 fL (7.4-10.4); Platelet Count 144 thou/uL (130-400); RBC Distribution Width 14.5 % (11.5-14.5); Red Blood Cell (RBC) Count 3.73 mill/uL (4.20-5.40); White Blood Cell (WBC) Count 2.1 thou/uL (4.8-10.8)
[2018-08-17] MEDS: Losartan 25 MG TAB PO SCH (08:16)
[2018-08-17] MEDS: Enoxaparin Sodium 40 MG/0.4 ML SYRINGE SC SCH (08:18)
[2018-08-17] MEDS: Gabapentin 300 MG CAP PO SCH (08:18)
[2018-08-17 08:37] LABS: Anion Gap 13 mmol/L (10-20); BUN (Urea Nitrogen) 13 mg/dL (7.0-18.7); Calc. Creatinine Clearance 84 mL/min (70-130); Calcium 9.1 mg/dL (7.8-10.44); Carbon Dioxide 21 mmol/L (22-29); Chloride 109 mmol/L (98-107); Estimated GFR-MDRD 41; Glucose 89 mg/dL (70-105); Potassium 3.8 mmol/L (3.5-5.1); Sodium 139 mmol/L (136-145)
[2018-08-17 11:40] VITALS: BP 91/51; TEMP 98.1
[2018-08-17 12:56] LABS: ANA Symphony (Qualitative) Negative (Negative); ANA Symphony (Quantitative) 0.2 Ratio (< 0.7 Negative); EliA Thy New Method **** NEW METHOD ****; EliA Vaculitis New Method **** NEW METHOD ****; Mitochondrial Ab 0.8 U/mL (<4 Negative); dsDNA IgG Antibody 2.4 IU/mL (<10 Negative)
--- NOTE | 2018-08-18 10:59 | EKG ---
Test Reason : CP Blood Pressure : / mmHG Vent. Rate : 109 BPM Atrial Rate : 109 BPM P-R Int : 126 ms QRS Dur : 076 ms QT Int : 364 ms P-R-T Axes : 032 013 037 degrees QTc Int : 490 ms Sinus tachycardia Otherwise normal ECG Confirmed by LILY HADLEY DO ([id number]), supervising editor news reel REJI MAN ([id number]) on 08/18/2018 10:59:31 AM Referred By: Confirmed By:LILY HADLEY DO
--- NOTE | 2018-08-21 08:49 | DIS ---
DATE OF ADMISSION: 08/15/2018 DATE OF DISCHARGE: 08/17/2018 ADMITTING ATTENDING: Pedro Pablo Bradshaw MD DISCHARGE ATTENDING: Henrique Joyner MD RESIDENT: Coco Melendez MD CONSULTS: [facility]. PROCEDURES: Stress test on 08/16/2018. PRIMARY DIAGNOSES: 1. Apical chest pain likely secondary to acute stress. 2. Elevated D-dimer. 3. Severe splenomegaly. 4. Leukopenia. SECONDARY DIAGNOSES: 1. Normocytic anemia. 2. Chronic kidney disease, stage 3. 3. Bipolar/schizophrenia. 4. Hypertension. 5. gastroesophageal reflux disease. 6. Hypothyroidism. DISCHARGE MEDICATIONS: 1. Geodon 160 mg oral at bedtime. 2. Synthroid 200 mcg oral daily. 3. Cogentin 2 mg oral at bedtime. 4. Nortriptyline HCl 25 mg oral at bedtime. 5. Cozaar 50 mg oral daily. 6. Protonix 40 mg oral daily. 7. Seroquel 300 mg oral at bedtime. 8. Hydroxyzine HCl 25 mg oral at bedtime. 9. Mirtazapine 30 mg oral at bedtime. Discontinued medications: None. HISTORY OF PRESENT ILLNESS/HOSPITAL COURSE: This is a 48-year-old female, who presented to the emergency department for chest pain. The patient has past medical history significant for hypertension, hypothyroidism, and psychiatric history significant for bipolar and schizophrenia. The patient was being seen by [facility] on the day of admission and was complaining of chest pain symptoms. [facility] told the patient to go to the emergency department for evaluation. The patient described the chest pain as intermittent to the center of her chest and radiating to the back of her neck. The patient states that this chest pain began in June. The patient said that she felt like the pain was as if someone was sitting on her chest or muscle spasm. The patient is rating it as an 8/10. The patient states the pain comes and goes randomly and is at rest as well. The patient endorses anxiousness, shortness of breath at rest, not sleeping well and feels chills. The patient's vital signs show tachycardia with a heart rate of 102 on admission. The patient was also found to have a white blood cell count of 1.9. The patient had an AST of 42, which is mildly elevated. The patient also had a creatinine of 1.74 on admission. The patient was admitted to telemetry for observation and cardiac workup. The patient underwent a stress test that was normal with a normal ejection fraction. On CT, the patient was found to have splenomegaly with no sign of thrombosis or cause for splenomegaly. The patient is negative for HIV, mono, hepatitis, or syphilis. The patient's MARGARET screen came back unremarkable. The patient's troponins were negative x3. The patient had an elevated D-dimer on presentation of 5.[address] was performed to rule out pulmonary embolism. The patient's white blood cell count was 2.1 on day of admission. Encouraged the patient to follow up with PCP as outpatient for referral to Hematology to have this worked up. The patient did have a retic count of 2.1. On the 2nd day of admission, the patient did endorse suicidal ideations and stated that she did not feel safe going home. On day of admission, the patient said that she had talked to [facility] the day before and felt that she was in a better place and was safe to go home. The patient denied suicidal ideation at that time. The patient's tachycardia had resolved. [facility] cleared the patient for discharge and stated she is safe to go home with outpatient followup. DISPOSITION: Stable. DISCHARGE INSTRUCTIONS: 1. Location: Home. 2. Activity: Ad wayne. 3. Diet: Heart healthy. 4. Followup: Follow up with PCP within 1 week. [facility] within 1 week. Job ID: [id number] MTDD
--- NOTE | 2018-08-22 23:01 | STRESS ---
Acquisition Time: 2018-08-16 09:15:59 Total Exercise Time: 00:04:00 Test Indications: CHEST PAIN Medications: Protocol: ADENOSINE Max HR: 116 BPM 67% of Pred: 173 BPM Max BP: 100/078 mmHG Max Work Load: 1.0 METS RESTING ECG: SINUS TACHYCARDIA AT 100 BPM SYMPTOMS: DYSPNEA NORMAL BP RESPONSE ECTOPY: NONE ECG STRESS: NO SIGNIFICANT CHANGES INTERPRETATION: NEGATIVE ECG/AWAIT NUCLEAR IMAGES FOR DEFINITIVE DIAGNOSIS Confirmed by MANOLO THOMPSON M.D. ([id number]) on 08/22/2018 11:00:33 PM Referred By: MD Paxton BLEVINS Confirmed By:MANOLO THOMPSON M.D.
== END 2018-08-17 16:05 | disposition home or self-care (01) ==
LOC: ERS 12:20 → 2SW 17:09
PROVIDERS: ADMIT Emergency Medicine; ATTEND Emergency Medicine
DX: R07.89 Other chest pain (principal); R79.89 Other specified abnormal findings of blood chemistry; D73.1 Hypersplenism; D72.819 Decreased white blood cell count, unspecified; I12.9 Hypertensive chronic kidney disease with stage 1 through stage 4 chronic kidney disease, or unspecified chronic kidney disease; N18.3 Chronic kidney disease, stage 3 (moderate); E03.9 Hypothyroidism, unspecified; F31.9 Bipolar disorder, unspecified; F20.9 Schizophrenia, unspecified; K21.9 Gastro-esophageal reflux disease without esophagitis; D64.9 Anemia, unspecified; E66.9 Obesity, unspecified; Z68.41 Body mass index [BMI] 40.0-44.9, adult; Z90.49 Acquired absence of other specified parts of digestive tract; Z88.6 Allergy status to analgesic agent; Z88.2 Allergy status to sulfonamides; Z88.8 Allergy status to other drugs, medicaments and biological substances; Z79.899 Other long term (current) drug therapy; Z98.890 Other specified postprocedural states
CPT/HCPCS: 36415; 71046; 71275; 74178; 78452; 80048; 80053; 80306; 81001; 82550; 83010; 83516; 83615; 84484; 84703; 85025; 85046; 85060; 85379; 85652; 86038; 86160; 86225; 86308; 86376; 86780; 86803; 87086; 87389; 87798; 90471; 90686; 93005; 93017; 94760; 96372; A9500; G0008; G0378; J0153; J1650; Q0162

== ENCOUNTER 2018-10-05 08:44 | Day surgery (SDC) | payer OTHER ==
[2018-10-04 15:25] VITALS: BMI 43.7
[2018-10-05 09:09] LABS: INR-International Normal Ratio 1.1; PTT 42.1 SEC (22.9-36.1); Prothrombin Time 14.5 SEC (12.0-14.7)
[2018-10-05 11:18] VITALS: BP 115/84; TEMP 98.4
--- NOTE | 2018-10-05 13:26 | CT ---
CT GUIDED PERCUTANEOUS RIGHT ILIAC BONE MARROW ASPIRATION AND BIOPSY: 10/05/2018 HISTORY: Hemolytic anemia. TECHNIQUE: The procedure, including risks and complications, was explained to the patient, and informed consent was obtained. The patient was placed on the CT scan table in the prone position. Axial CT images we re obtained through the iliac bones with a grid localizer in place. An area was marked and then meti culously prepped and draped in the usual sterile fashion. The skin and subcutaneous tissues were infiltrated with buffered 1% Lidocaine for local anesthesia. A small skin incision was made. An 11 gauge biopsy needle was advanced to the level of the right iliac bone, and three axial noncontr asted CT images were obtained to evaluate the trajectory of the needle. The needle was then advanced just through the cortex of the right iliac bone. Approximately 10 mL of bone marrow aspirate was ob tained. The needle was then advanced approximately 1 cm, and a bone biopsy was obtained. The needle was removed, and hemostasis was achieved with direct pressure. A dry, sterile dressing wa s placed. The patient was transported to the nurses' holding area for further monitoring prior to [facility]. The patient tolerated the procedure well and without immediate complications. IMPRESSION: Technically successful CT guided percutaneous right iliac bone marrow aspiration and biopsy. Patholo gy is currently pending. POS: [facility]
--- NOTE | 2018-10-05 13:51 | ULT ---
ABDOMEN ULTRASOUND: HISTORY: Evaluate for splenomegaly. COMPARISON: None. TECHNIQUE: Utilizing a multihertz transducer, sonographic imaging of the abdomen is performed in the longitudina l and transverse plane. FINDINGS: Suboptimal evaluation of the pancreas. Visualized aorta and IVC are unremarkable. Hepatic parenchyma has a normal echotexture. No hepatic masses or intrahepatic biliary dilatation. The contour of the hepatic margin is maintained. The right hepatic lobe measures 16 cm. Main portal vein is patent. Appropriate directional flow. Bilaterally, no hydronephrosis. Kidneys have a normal cortical echotexture. The right kidney measur es 4.5 x 5.2 x 10.1 cm. The left kidney measures 9.6 x 4.7 x 5.0 cm. Surgically absent gallbladder. Limited evaluation of the common bile duct. The spleen has a normal echotexture. The spleen is enlarged measuring 16.2 x 5.2 x 6.6 cm. IMPRESSION: Splenomegaly. POS: [facility]
--- NOTE | 2018-10-09 14:15 | CT ---
CT GUIDED PERCUTANEOUS RIGHT ILIAC BONE MARROW ASPIRATION AND BIOPSY: 10/05/2018 HISTORY: Hemolytic anemia. TECHNIQUE: The procedure, including risks and complications, was explained to the patient, and informed consent was obtained. The patient was placed on the CT scan table in the prone position. Axial CT images we re obtained through the iliac bones with a grid localizer in place. An area was marked and then meti culously prepped and draped in the usual sterile fashion. The skin and subcutaneous tissues were infiltrated with buffered 1% Lidocaine for local anesthesia. A small skin incision was made. An 11 gauge biopsy needle was advanced to the level of the right iliac bone, and three axial noncontr asted CT images were obtained to evaluate the trajectory of the needle. The needle was then advanced just through the cortex of the right iliac bone. Approximately 10 mL of bone marrow aspirate was ob tained. The needle was then advanced approximately 1 cm, and a bone biopsy was obtained. The needle was removed, and hemostasis was achieved with direct pressure. A dry, sterile dressing wa s placed. The patient was transported to the nurses' holding area for further monitoring prior to [facility]. The patient tolerated the procedure well and without immediate complications. IMPRESSION: Technically successful CT guided percutaneous right iliac bone marrow aspiration and biopsy. Patholo gy is currently pending.
== END 2018-10-05 13:10 | disposition home or self-care (01) ==
LOC: CT 08:44
PROVIDERS: ATTEND Radiology Vascular & Interventional Radiology
PROC: 07DR3ZX Extraction of Iliac Bone Marrow, Percutaneous Approach, Diagnostic (ICD-10-PCS; principal; 2018-10-05)
DX: D58.9 Hereditary hemolytic anemia, unspecified (principal); I10 Essential (primary) hypertension; F32.9 Major depressive disorder, single episode, unspecified; F41.9 Anxiety disorder, unspecified; E07.9 Disorder of thyroid, unspecified; M19.90 Unspecified osteoarthritis, unspecified site; Z98.51 Tubal ligation status; Z88.6 Allergy status to analgesic agent; Z88.2 Allergy status to sulfonamides; Z88.5 Allergy status to narcotic agent; Z88.8 Allergy status to other drugs, medicaments and biological substances; Z79.899 Other long term (current) drug therapy; Z98.890 Other specified postprocedural states
CPT/HCPCS: 20225; 36415; 76700; 77002; 85097; 85610; 85730; 88184; 88237; 88305; 88311; 88312; 88313; 88341; 88342

== ENCOUNTER 2018-11-05 08:44 | Emergency (ER) | payer OTHER ==
[2018-11-05] MEDS ORDERED: Ondansetron ODT 4 MG TAB ONE (09:21)
[2018-11-05 10:19] LABS: #Lymphocytes 0.5 thou/uL (1.20-3.40); #Monocytes 0.3 thou/uL (0.11-0.59); #Neutrophils 1.8 thou/uL (1.40-6.50); %Basophils 0.9 % (0.0-1.0); %Eosinophils 0.3 % (0.0-10.0); %Lymphocytes 20.2 % (21.0-51.0); %Neutrophils 68.6 % (42.0-75.0); Mean Corpuscular HGB CONC 33.3 g/dL (32.0-36.0); Mean Corpuscular Hemoglobin 27.9 pg (27.0-31.0); Mean Corpuscular Volume 83.8 fL (78.0-98.0); Mean Platelet Volume 7.5 fL (7.4-10.4); Platelet Count 190 thou/uL (130-400); RBC Distribution Width 14.1 % (11.5-14.5); Red Blood Cell (RBC) Count 4.66 mill/uL (4.20-5.40); White Blood Cell (WBC) Count 2.6 thou/uL (4.8-10.8)
[2018-11-05 10:48] LABS: ALT (SGPT) 14 U/L (8-55); AST (SGOT) 17 U/L (5-34); Albumin 4.3 g/dL (3.5-5.0); Alkaline Phosphatase 126 U/L (40-150); Anion Gap 11 mmol/L (10-20); BUN (Urea Nitrogen) 10 mg/dL (7.0-18.7); Bilirubin, Total 0.4 mg/dL (0.2-1.2); Calc. Creatinine Clearance 0 mL/min (70-130); Calcium 9.7 mg/dL (7.8-10.44); Carbon Dioxide 23 mmol/L (22-29); Chloride 106 mmol/L (98-107); Estimated GFR-MDRD 44; Globulin 4.1 g/dL (2.4-3.5); Glucose 101 mg/dL (70-105); Lipase 28 U/L (8-78); Potassium 3.8 mmol/L (3.5-5.1); Protein, Total 8.4 g/dL (6.0-8.3); Sodium 136 mmol/L (136-145)
[2018-11-05 11:33] LABS: Bilirubin Negative (Negative); Blood, Urine Negative (Negative); Clarity CLOUDY (Clear); Glucose, Urine (Dipstick) Negative (Negative); Leukocyte Moderate (Negative); Nitrite Positive (Negative); Protein, Urine (Dipstick) Negative (Neg-Trace); Specific Gravity, Urine 1.008 (1.002-1.036); Urobilinogen 0.2 mg/dL (0.2-1.0)
[2018-11-05 11:35] LABS: Bacteria/HPF 4+ HPF (None Seen); Hyaline Casts/LPF 4-6 HYALINE CAST LPF (0-3 Hyaline); Pathc Cast-AUWi Flag 1.76 (0-2.49); RBC/HPF 0-3 HPF (0-3); WBC/HPF 21-50 HPF (0-3)
[2018-11-05 12:26] LABS: BHCG - Serum Negative (NEGATIVE); Pregs Control Background? CLEAR/WHITE (CLR/WHITE); Pregs Control Bar Appear? YES (CONTROL BAR)
== END 2018-11-05 12:05 | disposition home or self-care (01) ==
LOC: ERS 08:44
DX: N39.0 Urinary tract infection, site not specified (principal); R11.2 Nausea with vomiting, unspecified; E03.9 Hypothyroidism, unspecified; I10 Essential (primary) hypertension; Z79.899 Other long term (current) drug therapy
CPT/HCPCS: 36415; 80053; 81003; 81015; 83690; 84703; 85025; 93005; Q0162

== ENCOUNTER 2018-11-07 12:02 | Emergency (ER) | payer OTHER ==
[2018-11-07] MEDS ORDERED: Metoclopramide HCl 10 MG/2 ML VIAL ONE (12:43)
[2018-11-07] MEDS ORDERED: Metoclopramide 10 MG/10 ML UDCUP ONE (12:43)
[2018-11-07 12:44] LABS: #Lymphocytes 0.6 thou/uL (1.20-3.40); #Monocytes 0.3 thou/uL (0.11-0.59); #Neutrophils 1.5 thou/uL (1.40-6.50); %Basophils 0.5 % (0.0-1.0); %Eosinophils 0.3 % (0.0-10.0); %Lymphocytes 23.5 % (21.0-51.0); %Monocytes 12.3 % (0.0-10.0); %Neutrophils 63.4 % (42.0-75.0); Hemoglobin 12.5 g/dL (12.0-16.0); Mean Corpuscular HGB CONC 33.2 g/dL (32.0-36.0); Mean Corpuscular Hemoglobin 27.4 pg (27.0-31.0); Mean Corpuscular Volume 82.4 fL (78.0-98.0); Mean Platelet Volume 7.2 fL (7.4-10.4); Platelet Count 166 thou/uL (130-400); Red Blood Cell (RBC) Count 4.56 mill/uL (4.20-5.40); White Blood Cell (WBC) Count 2.4 thou/uL (4.8-10.8)
[2018-11-07 13:03] LABS: ALT (SGPT) 17 U/L (8-55); AST (SGOT) 20 U/L (5-34); Albumin 4.1 g/dL (3.5-5.0); Alkaline Phosphatase 121 U/L (40-150); Anion Gap 11 mmol/L (10-20); BUN (Urea Nitrogen) 10 mg/dL (7.0-18.7); Bilirubin, Total 0.4 mg/dL (0.2-1.2); Calc. Creatinine Clearance 0 mL/min (70-130); Calcium 9.7 mg/dL (7.8-10.44); Carbon Dioxide 24 mmol/L (22-29); Chloride 106 mmol/L (98-107); Estimated GFR-MDRD 37; Glucose 93 mg/dL (70-105); Lipase 26 U/L (8-78); Potassium 4.1 mmol/L (3.5-5.1); Protein, Total 8.1 g/dL (6.0-8.3); Sodium 137 mmol/L (136-145)
[2018-11-07] MEDS ORDERED: Meclizine HCl 25 MG TAB ONE (13:19)
[2018-11-07] MEDS ORDERED: Ondansetron PF 4 MG/2 ML Vial ONE (14:37)
[2018-11-07 15:08] LABS: Bilirubin Negative (Negative); Blood, Urine Negative (Negative); Clarity CLEAR (Clear); Glucose, Urine (Dipstick) Negative (Negative); Leukocyte Small (Negative); Nitrite Negative (Negative); Protein, Urine (Dipstick) Negative (Neg-Trace); Specific Gravity, Urine 1.013 (1.002-1.036); Urobilinogen 0.2 mg/dL (0.2-1.0); pH, Urine 6.5 (5.0-9.0)
[2018-11-07 15:13] LABS: Bacteria/HPF None Seen HPF (None Seen); Hyaline Casts/LPF 4-6 HYALINE CAST LPF (0-3 Hyaline); Pathc Cast-AUWi Flag 0.95 (0-2.49); RBC/HPF 0-3 HPF (0-3)
== END 2018-11-07 16:20 | disposition home or self-care (01) ==
LOC: ERS 12:02
DX: R11.0 Nausea (principal); R10.10 Upper abdominal pain, unspecified; R42 Dizziness and giddiness; T43.95XA Adverse effect of unspecified psychotropic drug, initial encounter; G43.909 Migraine, unspecified, not intractable, without status migrainosus; E03.9 Hypothyroidism, unspecified; I10 Essential (primary) hypertension; F31.9 Bipolar disorder, unspecified; F20.9 Schizophrenia, unspecified; Z79.899 Other long term (current) drug therapy
CPT/HCPCS: 36415; 80053; 81003; 81015; 83690; 84484; 85025; 93005; 96365; 96375; J2405; J2765; J8597

== ENCOUNTER 2019-05-08 10:03 | Emergency (ER) | payer OTHER | END 2019-05-08 11:20 | disposition home or self-care (01) | LOC: ERS 10:03 | DX: H60.93 Unspecified otitis externa, bilateral (principal); G43.909 Migraine, unspecified, not intractable, without status migrainosus; E03.9 Hypothyroidism, unspecified; I10 Essential (primary) hypertension; F31.9 Bipolar disorder, unspecified; F20.9 Schizophrenia, unspecified | CPT/HCPCS: 99282 ==

== ENCOUNTER 2019-05-24 12:33 | Inpatient (IN) | payer OTHER ==
--- NOTE | 2019-05-24 13:26 | RAD ---
EXAM: Single view of the chest HISTORY: Lethargy COMPARISON: 06/07/2018 FINDINGS: Single view of the chest shows a normal sized cardiomediastinal silhouette. There is no tavia dence of consolidation, mass, or pleural effusion. The bones are unremarkable. IMPRESSION: No evidence of acute cardiopulmonary disease
[2019-05-24 13:30] LABS: BHCG - Serum Negative (NEGATIVE); Pregs Control Background? CLEAR/WHITE (CLR/WHITE); Pregs Control Bar Appear? YES (CONTROL BAR)
[2019-05-24 13:35] LABS: Acetaminophen Less than 6.0 mcg/mL (10.0-30.0); Alcohol Less than 10 mg/dL (Less than 10); CK (CPK) 88 U/L (29-168); Lipase 134 U/L (8-78); Magnesium 2.2 mg/dL (1.6-2.6); Salicylate Less than 8.0 mg/dL (15.0-30.0)
[2019-05-24 13:40] LABS: ALT (SGPT) 11 U/L (8-55); AST (SGOT) 12 U/L (5-34); Albumin 3.5 g/dL (3.5-5.0); Alkaline Phosphatase 100 U/L (40-110); Anion Gap 17 mmol/L (10-20); BUN (Urea Nitrogen) 77 mg/dL (7.0-18.7); Bilirubin, Total 0.2 mg/dL (0.2-1.2); Calc. Creatinine Clearance 0 mL/min (70-130); Calcium 8.9 mg/dL (7.8-10.44); Carbon Dioxide 18 mmol/L (22-29); Chloride 110 mmol/L (98-107); Estimated GFR-MDRD 12; Globulin 3.6 g/dL (2.4-3.5); Glucose 94 mg/dL (70-105); Potassium 5.1 mmol/L (3.5-5.1); Protein, Total 7.1 g/dL (6.0-8.3); Sodium 140 mmol/L (136-145)
[2019-05-24 13:44] LABS: #Eosinphils 0.3 thou/uL (0.0-0.7); #Lymphocytes 0.5 thou/uL (1.20-3.40); #Monocytes 0.3 thou/uL (0.11-0.59); #Neutrophils 6.6 thou/uL (1.40-6.50); %Eosinophils 3.3 % (0.0-10.0); %Lymphocytes 6.3 % (21.0-51.0); %Monocytes 4.4 % (0.0-10.0); %Neutrophils 86.1 % (42.0-75.0); Mean Corpuscular HGB CONC 33.2 g/dL (32.0-36.0); Mean Corpuscular Hemoglobin 28.8 pg (27.0-31.0); Mean Corpuscular Volume 86.8 fL (78.0-98.0); Mean Platelet Volume 7.5 fL (7.4-10.4); Platelet Count 220 thou/uL (130-400); RBC Distribution Width 14.3 % (11.5-14.5); Red Blood Cell (RBC) Count 3.47 mill/uL (4.20-5.40); White Blood Cell (WBC) Count 7.7 thou/uL (4.8-10.8)
[2019-05-24] MEDS ORDERED: Acetaminophen 500 MG TAB ONE (13:47)
[2019-05-24 13:58] LABS: Thyroid Stimulating Hormone 0.2795 uIU/mL (0.35-4.94)
[2019-05-24 15:30] LABS: Bacteria/HPF 4+ HPF (None Seen); Bilirubin Negative (Negative); Blood, Urine Negative (Negative); Clarity Turbid (Clear); Glucose, Urine (Dipstick) Normal (Negative); Leukocyte 250 Leu/uL (Negative); Mucous/LPF Rare LPF (<2+); Nitrite Negative (Negative); Protein, Urine (Dipstick) 20 mg/dL (Neg-Trace); Urobilinogen Normal mg/dL (Less than 2)
[2019-05-24 15:37] LABS: Amphetamine Not Detected (NotDetected); Barbiturates Screen Not Detected (NotDetected); Benzodiazepine Screen Not Detected (NotDetected); Cocaine Metabolite Screen Not Detected (NotDetected); Medtox Control Line Valid? VALID (VALID); Medtox Reader # READER 4; Methadone Not Detected (NotDetected); Methamphetamine Not Detected (NotDetected); Opiate Screen Not Detected (NotDetected); Oxycodone Screen Not Detected (NotDetected); Phencyclidine (PCP) Not Detected (NotDetected); THC/Cannabinoid Screen Not Detected (NotDetected); Tricyclic Screen Detected (NotDetected)
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
[2019-05-24 16:47] VITALS: BMI 45.2
[2019-05-24] MEDS ORDERED: Sodium Chloride 0.9% 1,000 ML IV SCH (16:48)
[2019-05-24] MEDS ORDERED: Acetaminophen 325 MG TAB PO PRN (16:48)
[2019-05-24] MEDS ORDERED: Calcium Carbonate 500 MG ChewTAB PO PRN (16:50)
[2019-05-24] MEDS ORDERED: Senokot S 8.6-50 MG TAB PO PRN (16:50)
[2019-05-24] MEDS ORDERED: Ondansetron PF 4 MG/2 ML Vial IVP PRN (16:50)
[2019-05-24] MEDS ORDERED: Ondansetron ODT 4 MG TAB PO PRN (16:50)
[2019-05-24] MEDS: Sodium Chloride 0.9% 1,000 ML IV SCH ×2 (16:55→22:16)
[2019-05-24 17:32] LABS: Troponin I Less than 0.010 ng/mL (< 0.028)
[2019-05-24] MEDS: Acetaminophen 325 MG TAB PO PRN ×2 (17:32→20:39)
[2019-05-24] MEDS: cefTRIAXone\\ROCEPHIN 1 GM in Sodium Chloride 0.9% 100 ML IVPB SCH (17:32)
--- NOTE | 2019-05-24 17:34 | PDOC.EVN ---
Event Note - Event Note Event Note: Date/Time: 05/24/19 5875 I personally performed or re-performed the physical examination and medical decision making. I have verified all resident documentation or findings, including history, physical exam and/or medical decision making. 49 yo AAF PMH CKD3B, HTN, hepatosplenomegaly. Presents to ER with CC of generalized weakness. Sees Dr. Gaona outpatient. Exam unremarkable. Labs show worsening of renal function with GFR 12 and Cr 4.68, BUN 77. Start IV fluids. monitor BMP. Nephro notified and will await further recommendations. outpatient evaluation for hepatosplenomegaly underway. 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
[2019-05-24 18:28] LABS: Anion Gap 13 mmol/L (10-20); BUN (Urea Nitrogen) 69 mg/dL (7.0-18.7); Calc. Creatinine Clearance 32 mL/min (70-130); Calcium 8.9 mg/dL (7.8-10.44); Carbon Dioxide 21 mmol/L (22-29); Chloride 111 mmol/L (98-107); Estimated GFR-MDRD 13; Glucose 90 mg/dL (70-105); Potassium 4.9 mmol/L (3.5-5.1); Sodium 140 mmol/L (136-145)
[2019-05-24] MEDS ORDERED: Benzonatate 100 MG CAP PO PRN (21:54)
--- NOTE | 2019-05-25 02:45 | CON ---
DATE OF CONSULTATION: REASON FOR CONSULTATION: Elevated creatinine. HISTORY OF PRESENTING ILLNESS: This is a very pleasant 49-year-old female, followed by Dr. Callaway at the [facility], presented to the hospital earlier today for weakness and presyncope. The patient has a hemoglobin of 10 and a creatinine of 4.69 on admission. Prior baseline creatinine was 1.63, peaking up to 2.4 2018, prior to that was less than 1. The patient can give no further history. Denies any nausea, vomiting, or chest pain. The patient has been treated for acute sinusitis, diarrhea, and other symptoms. PAST MEDICAL HISTORY: Significant for bipolar disorder, schizophrenia, hypothyroidism, splenomegaly, GERD, , cholecystectomy, and tubal ligation. FAMILY HISTORY: Negative for ESRD. ALLERGIES: REVIEWED. REVIEW OF SYSTEMS: 15-point review of systems was performed and negative except for positives noted above. GENERAL: HEAD: NECK: No swelling or lumps. NOSE: No epistaxis or discharge. EYES: No diplopia or pain. RESPIRATORY: CARDIOVASCULAR: GASTROINTESTINAL: /REFORMATORY ATTENDANT: MUSCULOSKELETAL: No joint pain. NEUROPSYCHIATIC SYSTEMS: No suicidal ideation. No ideation. SKIN: Denies any rash or ulcer. CONSTITUTIONAL: No fever or chills. PHYSICAL EXAMINATION: See above. GENERAL: The patient is awake and alert, in no acute distress VITAL SIGNS: Afebrile, pulse 94, breathing 16, and blood pressure . GENERAL APPEARANCE AND MENTAL STATUS: Fair. HEAD/NECK: Normocephalic. Atraumatic. EYES: EOMI. No deformity. EARS: Clear. No ulcers. NOSE: Intact. No lesions. MOUTH: Clear. No discharge. THROAT: Clear. No exudate. LUNGS: Clear. No crackles. CARDIAC: S1, S2. No rub. ABDOMEN: Benign. Bowel sounds positive. GENITALIA/RECTUM: Loaiza absent. BACK/EXTREMITIES: Edema 0+. NEUROLOGICAL: Alert and motor intact. SKIN: LYMPHATICS: LABORATORY DATA: Reviewed. IMPRESSION AND PLAN: Acute kidney injury with chronic kidney disease, most likely due to decreased effective arterial blood volume plus antibiotic-induced drug interstitial nephritis could also be a possibility. No urgent indication for dialysis. Continue hydration. Renal function is trending down. Hypertension, stable. Anemia, stable. Medication based on GFR appropriate. No indication for dialysis at this time. I would recommend renal imaging with renal ultrasound. Job ID: [id number]
[2019-05-25] MEDS: Sodium Chloride 0.9% 1,000 ML IV SCH ×4 (05:05→23:57)
[2019-05-25] MEDS: Levothyroxine 175 MCG TAB PO SCH (05:05)
[2019-05-25 05:25] LABS: #Eosinphils 0.3 thou/uL (0.0-0.7); #Lymphocytes 0.4 thou/uL (1.20-3.40); #Monocytes 0.3 thou/uL (0.11-0.59); #Neutrophils 3.1 thou/uL (1.40-6.50); %Basophils 0.6 % (0.0-1.0); %Eosinophils 6.4 % (0.0-10.0); %Lymphocytes 8.7 % (21.0-51.0); %Monocytes 7.9 % (0.0-10.0); %Neutrophils 76.3 % (42.0-75.0); Mean Corpuscular HGB CONC 32.3 g/dL (32.0-36.0); Mean Corpuscular Hemoglobin 28.6 pg (27.0-31.0); Mean Corpuscular Volume 88.8 fL (78.0-98.0); Mean Platelet Volume 7.3 fL (7.4-10.4); Platelet Count 205 thou/uL (130-400); RBC Distribution Width 14.3 % (11.5-14.5); Red Blood Cell (RBC) Count 3.14 mill/uL (4.20-5.40); White Blood Cell (WBC) Count 4.1 thou/uL (4.8-10.8)
[2019-05-25 05:54] LABS: ALT (SGPT) 9 U/L (8-55); AST (SGOT) 11 U/L (5-34); Albumin 2.8 g/dL (3.5-5.0); Alkaline Phosphatase 77 U/L (40-110); Anion Gap 12 mmol/L (10-20); BUN (Urea Nitrogen) 64 mg/dL (7.0-18.7); Bilirubin, Total 0.2 mg/dL (0.2-1.2); Calc. Creatinine Clearance 34 mL/min (70-130); Carbon Dioxide 19 mmol/L (22-29); Chloride 112 mmol/L (98-107); Estimated GFR-MDRD 14; Globulin 3.2 g/dL (2.4-3.5); Glucose 107 mg/dL (70-105); Potassium 4.6 mmol/L (3.5-5.1); Sodium 138 mmol/L (136-145)
--- NOTE | 2019-05-25 06:37 | PDOC.FM ---
- Subjective Subjective: Pt has diffuse abdminal pain. Complains of extremity weakness. She states this has been ongoing for multiple months. - Objective Vital Signs & Weight: Vital Signs (12 hours) Temp Pulse Resp BP Pulse Ox 05/25/19 04:00 98.4 F 92 16 89/59 L 96 05/25/19 00:00 97.5 F L 86 16 100/68 100 05/24/19 20:50 97.8 F 95 16 123/84 99 Weight Weight 127.233 kg Result Diagrams: 05/25/19 04:56 05/25/19 04:56 Phys Exam - Physical Examination Constitutional: NAD Respiratory: no wheezing, no rales, clear to auscultation bilateral Cardiovascular: RRR, no significant murmur Tender to light palpation diffusely w/o a discriminate area Dx/Plan (1) Acute kidney injury superimposed on CKD Code(s): N17.9 - ACUTE KIDNEY FAILURE, UNSPECIFIED; N18.9 - CHRONIC KIDNEY DISEASE, UNSPECIFIED Status: Acute (2) UTI (urinary tract infection) Status: Acute (3) MARITZA (acute kidney injury) Code(s): N17.9 - ACUTE KIDNEY FAILURE, UNSPECIFIED Status: Acute (4) Atypical chest pain Code(s): R07.89 - OTHER CHEST PAIN Status: Acute (5) Hypersplenism Code(s): D73.1 - HYPERSPLENISM Status: Acute (6) Bipolar 1 disorder Code(s): F31.9 - BIPOLAR DISORDER, UNSPECIFIED Status: Chronic (7) GERD (gastroesophageal reflux disease) Code(s): K21.9 - GASTRO-ESOPHAGEAL REFLUX DISEASE WITHOUT ESOPHAGITIS Status: Chronic (8) Schizophrenia Code(s): F20.9 - SCHIZOPHRENIA, UNSPECIFIED Status: Chronic Qualifiers: Schizophrenia type: unspecified Qualified Code(s): F20.9 - Schizophrenia, unspecified - Plan Plan: Patient is a 49 yo female who presents with weakness is admitted for MARITZA on CKD3B and UTI: #MARITZA on CKD-3B -admission Cr 4.69 & GFR 12, baseline Cr of 1.27 & GFR 50 in January 2019 but noted heme-onc sent pt to nephrology due to increasing creatinine. -CrCl of 29 -given 1 L NS bolus in ED, will continue maintenance IVF NS @ 150 ml/h -Consult Nephrology, Dr. Gaona--appreciate recs. Will order renal u/s. Possibly secondary to interstitial nephritis. BUN/Crea ratio 16. Not resolving with fluids at this time. -vitals q4h, monitor I/Os # Abdominal Pain - KUB pending #UTI -UA pos for LE, WBCs, RBCs, 4+ bacteria but squamous cells 11-20 -will give Rocephin 1g x 1 dose -Urine culture ordered #Atypical Chest Pain - less likely CAD/angina; pt describes pleuritic chest pain , worse with cough, pt had sinusitis in past -ordered troponin, will trend -EKG in ED showed normal sinus rhythm with no ST changes #Weakness, Muscle Cramping -CK 88 -unsure of etiology at this time, will investigate current psych meds and if taking dosing appropriately -Tylenol prn #Hypothyroid -TSH 0.2 -Continue home Levothyroxine 175 mcg #Schizophrenia, Bipolar Disorder -continue home meds: Quetiapine, Fluoxetine, Mirtazapine -UDS pos for TCA only #Splenomegaly -currently being worked up outpatient for possible blood vs kidney disorder -sees Dr. Romero (Heme/Onc) and Dr. Gaona (Nephrology) as outpatient # Anemia - pending iron studies Diet: Low Na VTE: Lovenox 30 (CrCl 29) Code: FULL PCP: Dr. Betito KEY Dispo: Stable, admitted to inpatient on medical floor. Will monitor AM labs. Treat UTI. Will consult Dr. Gaona with Nephrology, appreciate recs. Anticipate LOS >48 hrs.
[2019-05-25 08:09] LABS: Iron 34 ug/dL (50-170); Iron Binding Capacity, Total 153 mcg/dL (265-497); Transferrin, Serum 122 mg/dL (180-382)
[2019-05-25] MEDS: Folic Acid 1 MG TAB PO SCH (08:55)
[2019-05-25] MEDS: Gabapentin 300 MG CAP PO SCH ×3 (08:55→20:30)
[2019-05-25] MEDS: Famotidine 20 MG TAB PO SCH (08:55)
[2019-05-25] MEDS: Enoxaparin Sodium 30 MG/0.3 ML SYRINGE SC SCH (08:56)
[2019-05-25] MEDS: FLUoxetine HCl 20 MG CAP PO SCH (08:56)
[2019-05-25] MEDS ORDERED: FLU VACC QS2019-20(6MOS UP)/PF 60 MCG/0.5 ML SYRINGE IM ONE (09:00)
--- NOTE | 2019-05-25 09:00 | ULT ---
Renal ultrasound: 05/25/2019 COMPARISON: None HISTORY: Acute on chronic kidney disease TECHNIQUE: Multiplanar grayscale sonographic imaging of the kidneys and urinary bladder obtained. FINDINGS: Right kidney measures 9.5 cm in craniocaudal dimension, with a cortical thickness of 1.8 cm . No right renal mass, hydronephrosis, or renal stone noted. Urinary bladder appears grossly unremarkable. Left kidney measures 10.1 cm in craniocaudal dimension with a cortical thickness of approximately 1.6 cm. No renal mass, hydronephrosis, or renal stone noted on the left. IMPRESSION: Grossly unremarkable renal ultrasound.
--- NOTE | 2019-05-25 09:38 | RAD ---
KUB: 05/25/2019 COMPARISON: None HISTORY: Abdominal pain FINDINGS: Supine imaging limits assessment for free air and bowel obstruction. The bowel gas pattern appears nonobstructed. There is significant stool overlying the ascending colon, transverse colon, and splenic flexure. Clips in the right upper quadrant suggest prior cholecystectomy. IMPRESSION: No acute findings.
[2019-05-25] MEDS: Acetaminophen 325 MG TAB PO PRN ×2 (11:52→16:17)
--- NOTE | 2019-05-25 12:03 | PRG ---
DATE OF SERVICE: 05/25/2019 SUBJECTIVE: A 49-year-old female, being seen for acute kidney injury. The patient denies any nausea, vomiting, or chest pain. OBJECTIVE: CONSTITUTIONAL: The patient is awake and alert. VITAL SIGNS: Afebrile, pulse 95, breathing 16, and blood pressure 112/79. GENERAL APPEARANCE AND MENTAL STATUS: Fair. HEAD/NECK: Normocephalic. Atraumatic. EYES: EOMI. No deformity. EARS: Clear. No ulcers. NOSE: Intact. No lesions. MOUTH: Clear. No discharge. THROAT: Clear. No exudate. LUNGS: Clear. No crackles. CARDIAC: S1, S2. No rub. ABDOMEN: Benign. Bowel sounds positive. GENITALIA/RECTUM: Loaiza absent. BACK/EXTREMITIES: Edema 0+. NEUROLOGICAL: Alert and motor intact. SKIN: LYMPHATICS: LABORATORY DATA: Labs show hemoglobin 9. Creatinine 4.1. ASSESSMENT AND PLAN: 1. Acute kidney injury, improved. 2. Chronic kidney disease stage 4, stable. 3. Acute tubular necrosis due to dehydration. 4. Metabolic acidosis, stable. Medication based on GFR appropriate. No indication for dialysis. Job ID: [id number]
--- NOTE | 2019-05-25 13:05 | PRG ---
DATE OF SERVICE: 05/25/2019 Please see the note from Dr. James, for which I agree. This is an extremely complicated 49-year-old patient, who came in with initially chest pain, now is having more abdominal pain, just a kind of generalized weakness. She was given Medrol Dosepak and antibiotics a week before for sinus infection type symptoms. She was noted to have a creatinine elevated at 4.69 with low GFR. Renal is involved and wanted renal ultrasound, which has already come back normal. The patient is a poor historian, not very good as far as really describing what was going on. She was found to have a UTI. I am not sure why her creatinine level is elevated. Apparently, she is being worked up also for hypersplenism. She is a little bit anemic. I am working that up as well and trying to piece together what all is going on with her. Certainly, Renal is helping us as far as decreased kidney function. For the abdominal pain, we will also get an x-ray. May need to get CT, would hate to do that with contrast with kidney failure. Job ID: [id number]
[2019-05-25] MEDS ORDERED: Dicyclomine 10 MG CAP PO SCH ×2 (14:30→17:00)
[2019-05-25] MEDS: cefTRIAXone\\ROCEPHIN 1 GM in Sodium Chloride 0.9% 100 ML IVPB SCH (16:17)
[2019-05-25] MEDS: Dicyclomine 10 MG CAP PO SCH ×2 (16:18→20:30)
[2019-05-25] MEDS: Mirtazapine 15 MG TAB PO SCH (20:30)
[2019-05-25] MEDS: Acetaminophen/Codeine 30-300mg Tablet PO PRN (23:23)
[2019-05-26] MEDS: Sodium Chloride 0.9% 1,000 ML IV SCH ×3 (02:15→13:39)
[2019-05-26] MEDS: Levothyroxine 175 MCG TAB PO SCH (05:46)
--- NOTE | 2019-05-26 06:26 | PDOC.FM ---
- Subjective Subjective: Pt continues with pain today. She has been seen in the past for this by GI and had neg EGD. Pain medication overnight helped modestly. - Objective Vital Signs & Weight: Vital Signs (12 hours) Temp Pulse Resp BP Pulse Ox 05/26/19 04:00 97.4 F L 96 18 115/80 99 05/26/19 00:00 97.5 F L 100 18 115/78 99 05/25/19 20:00 97.6 F 94 18 131/86 96 Weight Admit Weight 127.233 kg Weight 127.233 kg Result Diagrams: 05/26/19 07:28 05/26/19 07:28 Phys Exam - Physical Examination Uncomfortable appearing HEENT: PERRLA, moist MMs, oral pharynx no lesions Neck: no JVD, full ROM Respiratory: no wheezing, no rales, clear to auscultation bilateral Cardiovascular: RRR, no significant murmur Gastrointestinal: soft, no distention, positive bowel sounds Non-tender Musculoskeletal: no edema, pulses present Neurological: normal sensation, moves all 4 limbs Dx/Plan (1) Acute kidney injury superimposed on CKD Code(s): N17.9 - ACUTE KIDNEY FAILURE, UNSPECIFIED; N18.9 - CHRONIC KIDNEY DISEASE, UNSPECIFIED Status: Acute (2) UTI (urinary tract infection) Status: Acute (3) MARITZA (acute kidney injury) Code(s): N17.9 - ACUTE KIDNEY FAILURE, UNSPECIFIED Status: Acute (4) Atypical chest pain Code(s): R07.89 - OTHER CHEST PAIN Status: Acute (5) Hypersplenism Code(s): D73.1 - HYPERSPLENISM Status: Acute (6) Bipolar 1 disorder Code(s): F31.9 - BIPOLAR DISORDER, UNSPECIFIED Status: Chronic (7) GERD (gastroesophageal reflux disease) Code(s): K21.9 - GASTRO-ESOPHAGEAL REFLUX DISEASE WITHOUT ESOPHAGITIS Status: Chronic (8) Schizophrenia Code(s): F20.9 - SCHIZOPHRENIA, UNSPECIFIED Status: Chronic Qualifiers: Schizophrenia type: unspecified Qualified Code(s): F20.9 - Schizophrenia, unspecified - Plan Plan: Patient is a 49 yo female who presents with weakness is admitted for MARITZA on CKD3B and UTI: #MARITZA on CKD-3B -admission Cr 4.69 & GFR 12, baseline Cr of 1.27 & GFR 50 in January 2019 but noted heme-onc sent pt to nephrology due to increasing creatinine. -CrCl of 29 -given 1 L NS bolus in ED, will continue maintenance IVF NS @ 150 ml/h -Consult Nephrology, Dr. Gaona--appreciate recs. Renal U/S showed no abnormalities. -vitals q4h, monitor I/Os - Appears pt was sent to Dr. Gaona by Dr. Romero earlier in 2018 for increasing creatinine which resolved by January 2019. She now presents again with increasing creatinine levels. Seems to be an intra-renal process - autoimmune vs medication induced? Will need to further discuss care with Jimenez Oleary for current workup. Per early [address] Romero autoimmune work had been negative. At this time will re-order MARGARET, SED, Compliment testing. Pt does have anemia of chronic disease. # Abdominal Pain - KUB negative - Tylenol 3 prn #UTI -UA pos for LE, WBCs, RBCs, 4+ bacteria but squamous cells 11-20 -will give Rocephin 1g x 1 dose -Urine culture ordered #Atypical Chest Pain - less likely CAD/angina; pt describes pleuritic chest pain , worse with cough, pt had sinusitis in past -ordered troponin, will trend -EKG in ED showed normal sinus rhythm with no ST changes #Weakness, Muscle Cramping -CK 88 -unsure of etiology at this time, will investigate current psych meds and if taking dosing appropriately -Tylenol prn #Hypothyroid -TSH 0.2 -Continue home Levothyroxine 175 mcg #Schizophrenia, Bipolar Disorder -continue home meds: Quetiapine, Fluoxetine, Mirtazapine -UDS pos for TCA only #Splenomegaly -currently being worked up outpatient for possible blood vs kidney disorder -sees Dr. Romero (Heme/Onc) and Dr. Gaona (Nephrology) as outpatient # Anemia of Chronic Disease - monitor, consider addition of iron but will have little absorption. Diet: Low Na VTE: Lovenox 30 (CrCl 29) Code: FULL PCP: Dr. Betito KEY Dispo: Stable, admitted to inpatient on medical floor. Will monitor AM labs. Treat UTI. Will consult Dr. Gaona with Nephrology, appreciate recs. Anticipate LOS >48 hrs.
[2019-05-26 07:39] LABS: #Eosinphils 0.2 thou/uL (0.0-0.7); #Lymphocytes 0.3 thou/uL (1.20-3.40); #Monocytes 0.4 thou/uL (0.11-0.59); #Neutrophils 2.8 thou/uL (1.40-6.50); %Basophils 0.2 % (0.0-1.0); %Eosinophils 5.8 % (0.0-10.0); %Lymphocytes 8.9 % (21.0-51.0); %Monocytes 11.4 % (0.0-10.0); %Neutrophils 73.7 % (42.0-75.0); Hemoglobin 9.9 g/dL (12.0-16.0); Mean Corpuscular HGB CONC 31.9 g/dL (32.0-36.0); Mean Corpuscular Hemoglobin 28.5 pg (27.0-31.0); Mean Corpuscular Volume 89.4 fL (78.0-98.0); Mean Platelet Volume 7.3 fL (7.4-10.4); Platelet Count 214 thou/uL (130-400); RBC Distribution Width 14.4 % (11.5-14.5); Red Blood Cell (RBC) Count 3.48 mill/uL (4.20-5.40); White Blood Cell (WBC) Count 3.8 thou/uL (4.8-10.8)
[2019-05-26 07:58] LABS: Anion Gap 13 mmol/L (10-20); BUN (Urea Nitrogen) 46 mg/dL (7.0-18.7); Calc. Creatinine Clearance 40 mL/min (70-130); Calcium 8.6 mg/dL (7.8-10.44); Carbon Dioxide 20 mmol/L (22-29); Chloride 117 mmol/L (98-107); Estimated GFR-MDRD 17; Glucose 95 mg/dL (70-105); Potassium 5.2 mmol/L (3.5-5.1); Sodium 145 mmol/L (136-145)
[2019-05-26] MEDS: Dicyclomine 10 MG CAP PO SCH ×4 (09:04→20:38)
[2019-05-26] MEDS: Famotidine 20 MG TAB PO SCH (09:04)
[2019-05-26] MEDS: FLUoxetine HCl 20 MG CAP PO SCH (09:04)
[2019-05-26] MEDS: Gabapentin 300 MG CAP PO SCH ×3 (09:04→20:38)
[2019-05-26] MEDS: Folic Acid 1 MG TAB PO SCH (09:04)
[2019-05-26] MEDS: Enoxaparin Sodium 30 MG/0.3 ML SYRINGE SC SCH (09:05)
[2019-05-26] MEDS: Acetaminophen/Codeine 30-300mg Tablet PO PRN ×2 (09:07→22:22)
[2019-05-26] MEDS ORDERED: Lactated Ringer's 1,000 ML IV SCH (11:00)
--- NOTE | 2019-05-26 12:06 | PRG ---
DATE OF SERVICE: 05/26/2019 SUBJECTIVE: A 49-year-old female, being seen for acute kidney injury. The patient denies nausea, vomiting, or chest pain. OBJECTIVE: CONSTITUTIONAL: The patient is awake and alert. VITAL SIGNS: Afebrile, pulse 80, breathing 16, blood pressure 133/86. GENERAL APPEARANCE AND MENTAL STATUS: Fair. HEAD/NECK: Normocephalic. Atraumatic. EYES: EOMI. No deformity. EARS: Clear. No ulcers. NOSE: Intact. No lesions. MOUTH: Clear. No discharge. THROAT: Clear. No exudate. LUNGS: Clear. No crackles. CARDIAC: S1, S2. No rub. ABDOMEN: Benign. Bowel sounds positive. GENITALIA/RECTUM: Loaiza absent. BACK/EXTREMITIES: Edema 0+. NEUROLOGICAL: Alert and motor intact. SKIN: LYMPHATICS: LABORATORY DATA: Hemoglobin 9.9, potassium is 5.2, creatinine 3.4. IMPRESSION AND PLAN: 1. Acute kidney injury with chronic kidney disease, stable. 2. Hypertension, stable. 3. Anemia, stable. 4. Medication based on GFR appropriate. 5. Hypokalemia, we will recommend stopping the lactated Ringer and rechecking labs. Job ID: [id number]
[2019-05-26 12:17] LABS: Band 3 % (5-11); Eosinophils 2 % (0-10); Hemoglobin 9.8 g/dL (12.0-16.0); Lymphocytes 11 % (21-51); MDiff Complete? YES; Mean Corpuscular HGB CONC 31.7 g/dL (32.0-36.0); Mean Corpuscular Hemoglobin 27.8 pg (27.0-31.0); Mean Corpuscular Volume 87.8 fL (78.0-98.0); Mean Platelet Volume 7.2 fL (7.4-10.4); Monocytes 8 % (0-10); Neutrophil 76 % (42-75); Platelet Count 212 thou/uL (130-400); RBC Distribution Width 14.4 % (11.5-14.5); Red Blood Cell (RBC) Count 3.51 mill/uL (4.20-5.40); White Blood Cell (WBC) Count 3.7 thou/uL (4.8-10.8)
[2019-05-26 14:14] LABS: Complement-C4 43.3 mg/dL (15-57)
[2019-05-26] MEDS: Heparin 5,000 UNITS/ML VIAL SC SCH ×2 (14:50→20:39)
[2019-05-26] MEDS: cefTRIAXone\\ROCEPHIN 1 GM in Sodium Chloride 0.9% 100 ML IVPB SCH (16:54)
--- NOTE | 2019-05-26 17:49 | PRG ---
DATE OF SERVICE: Please see the note from Dr. James for which I agree. The patient was seen, evaluated, discussed, and examined with the residents by the bedside. A very interesting case where she has acute kidney injury on chronic kidney disease type problems. Her creatinine is coming down with fluids. Unclear exactly what has caused this issue in the first place. As her kidney function it sounds like over the last year has been very fluctuant and is being worked up as an outpatient for splenomegaly and the kidney issue. 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 It looks like that is associated with AML, CML, possible multiple myeloma, or CLL. She does have chronic low white blood cell count, anemia. Has a large spleen. Still complains of diffuse abdominal pain, aches and pains, and kind of cramps all over. She is not a very good historian, possibly a lot secondary to her psychiatric issues. So, just giving her IV fluids until we get her creatinine back down, but obviously need to work this up, possibly get SPEP, UPEP, peripheral smear. May need to try to almaraz down if there was any more done in September further on that bone marrow specimen. I think Dr. Romero is the one currently working on her and we will need to talk to Dr. Romero tomorrow to better help us out to figure out what is going on here, and see what the actual bone marrow showed. Appreciate Nephrology's involvement. The renal ultrasound was normal of note. Job ID: [id number]
[2019-05-26] MEDS: Mirtazapine 15 MG TAB PO SCH (20:39)
[2019-05-27] MEDS: Acetaminophen/Codeine 30-300mg Tablet PO PRN (04:10)
[2019-05-27] MEDS: Levothyroxine 175 MCG TAB PO SCH (06:11)
--- NOTE | 2019-05-27 06:18 | PDOC.FM ---
- Subjective Subjective: Patient continues to complain of abdominal pain. Sometimes feels like bloating, sometimes sharp/stabbing. Says she has not had a BM since last . Patient relays further history that she feels like she drinks all day long and urinates frequently. Says there are many times she cannot make it to the bathroom on time and urinates on herself. - Objective MAR Reviewed: Yes Vital Signs & Weight: Vital Signs (12 hours) Temp Pulse Resp BP Pulse Ox 05/27/19 04:23 98.1 F 107 H 16 112/72 96 05/27/19 02:45 99 05/27/19 00:00 97.7 F 105 H 16 110/64 100 05/26/19 20:00 97.4 F L 89 16 136/95 H 99 Weight Admit Weight 127.233 kg Weight 127.233 kg I&O: 05/25/19 05/26/19 05/27/19 06:59 06:59 06:59 Intake Total 2430 Output Total 1300 Balance 1130 Result Diagrams: 05/27/19 06:50 05/27/19 06:50 Phys Exam - Physical Examination Constitutional: NAD HEENT: moist MMs, sclera anicteric Neck: no JVD, supple, full ROM Respiratory: no wheezing, no rales, no rhonchi, clear to auscultation bilateral Cardiovascular: RRR, no significant murmur Gastrointestinal: soft, no distention generalized TTP, worst over Epigastric and LLQ. Hypoactive bowel sounds. Musculoskeletal: no edema, pulses present Neurological: normal sensation, moves all 4 limbs Psychiatric: normal affect, A&O x 3 Skin: no rash, normal turgor Dx/Plan (1) Acute kidney injury superimposed on CKD Code(s): N17.9 - ACUTE KIDNEY FAILURE, UNSPECIFIED; N18.9 - CHRONIC KIDNEY DISEASE, UNSPECIFIED Status: Acute (2) Atypical chest pain Code(s): R07.89 - OTHER CHEST PAIN Status: Acute (3) Hypothyroidism Code(s): E03.9 - HYPOTHYROIDISM, UNSPECIFIED Status: Chronic Qualifiers: Hypothyroidism type: acquired Qualified Code(s): E03.9 - Hypothyroidism, unspecified (4) Schizophrenia Code(s): F20.9 - SCHIZOPHRENIA, UNSPECIFIED Status: Chronic Qualifiers: Schizophrenia type: unspecified Qualified Code(s): F20.9 - Schizophrenia, unspecified (5) UTI (urinary tract infection) Status: Acute Qualifiers: Urinary tract infection type: acute cystitis Hematuria presence: without hematuria Qualified Code(s): N30.00 - Acute cystitis without hematuria - Plan Plan: Patient is a 49 yo female who presents with weakness is admitted for MARITZA on CKD3B and UTI: #MARITZA on CKD-3B -admission Cr 4.69 & GFR 12, baseline Cr of 1.27 & GFR 50 in January 2019 but noted heme-onc sent pt to nephrology due to increasing creatinine. -CrCl of 29 -given 1 L NS bolus in ED, will continue maintenance IVF NS @ 150 ml/h -Consult Nephrology, Dr. Gaona--appreciate recs. -Renal U/S showed no abnormalities. -vitals q4h, monitor I/Os - Appears pt was sent to Dr. Gaona by Dr. Romero earlier in 2018 for increasing creatinine which resolved by January 2019. She now presents again with increasing creatinine levels. Seems to be an intra-renal process - autoimmune vs medication induced? Will need to further discuss care with Jimenez Oleary for current workup. Per early [address] Romero autoimmune work had been negative. At this time will re-order MARGARET, SED, Compliment testing. Urine eosinophils orderd to assess for AIN. Pt does have anemia of chronic disease. -Compliment testing-levels of C3 & C4 within normal range -will check urine Na and urine Cr -request of records sent to Dr. Romero from [facility] clinic # Abdominal Pain - KUB negative - Tylenol 3 prn #UTI -UA pos for LE, WBCs, RBCs, 4+ bacteria but squamous cells 11-20 -will give Rocephin 1g x 1 dose -Urine culture shows no growth at 48 hours #Atypical Chest Pain - less likely CAD/angina; pt describes pleuritic chest pain , worse with cough, pt had sinusitis in past -troponin neg -EKG in ED showed normal sinus rhythm with no ST changes #Weakness, Muscle Cramping -CK 88 -unsure of etiology at this time, will investigate current psych meds and if taking dosing appropriately -Tylenol prn #Hypothyroid -TSH 0.2 -Continue home Levothyroxine 175 mcg #Schizophrenia, Bipolar Disorder -continue home meds: Quetiapine, Fluoxetine, Mirtazapine -UDS pos for TCA only #Splenomegaly -currently being worked up outpatient for possible blood vs kidney disorder -sees Dr. Romero (Heme/Onc) and Dr. Gaona (Nephrology) as outpatient # Anemia of Chronic Disease - monitor, consider addition of iron but will have little absorption - iron low, TIBC low, transferrin low, ferritin normal #Constipation - no BM in 3-4 days, has been requesting prn Senna - will order scheduled Miralax and Senna starting today (05/27), monitor for BM Diet: Low Na VTE: Lovenox 30 (CrCl 29) Code: FULL PCP: Dr. Betito KEY Dispo: Stable, admitted to inpatient on medical floor. Will monitor AM labs. Nephrology consulted-Dr. Gaona, appreciate recs. Continue autoimmune workup. Anticipate LOS >48 hrs.
[2019-05-27 07:15] LABS: #Eosinphils 0.3 thou/uL (0.0-0.7); #Lymphocytes 0.4 thou/uL (1.20-3.40); #Monocytes 0.5 thou/uL (0.11-0.59); #Neutrophils 2.2 thou/uL (1.40-6.50); %Eosinophils 8.3 % (0.0-10.0); %Lymphocytes 11.4 % (21.0-51.0); %Monocytes 13.7 % (0.0-10.0); %Neutrophils 66.6 % (42.0-75.0); Hemoglobin 10.2 g/dL (12.0-16.0); Mean Corpuscular HGB CONC 32.5 g/dL (32.0-36.0); Mean Corpuscular Hemoglobin 29.1 pg (27.0-31.0); Mean Corpuscular Volume 89.3 fL (78.0-98.0); Mean Platelet Volume 7.2 fL (7.4-10.4); Platelet Count 224 thou/uL (130-400); RBC Distribution Width 14.6 % (11.5-14.5); Red Blood Cell (RBC) Count 3.51 mill/uL (4.20-5.40); White Blood Cell (WBC) Count 3.3 thou/uL (4.8-10.8)
[2019-05-27 07:28] VITALS: BP 135/92; TEMP 97.3
[2019-05-27 07:34] LABS: Anion Gap 11 mmol/L (10-20); BUN (Urea Nitrogen) 33 mg/dL (7.0-18.7); Calc. Creatinine Clearance 41 mL/min (70-130); Calcium 9.3 mg/dL (7.8-10.44); Carbon Dioxide 21 mmol/L (22-29); Chloride 114 mmol/L (98-107); Estimated GFR-MDRD 17; Glucose 83 mg/dL (70-105); Potassium 4.9 mmol/L (3.5-5.1); Sodium 141 mmol/L (136-145)
[2019-05-27] MEDS: Dicyclomine 10 MG CAP PO SCH ×3 (08:21→16:36)
[2019-05-27] MEDS: FLUoxetine HCl 20 MG CAP PO SCH (08:21)
[2019-05-27] MEDS: Heparin 5,000 UNITS/ML VIAL SC SCH ×2 (08:21→14:47)
[2019-05-27] MEDS: Gabapentin 300 MG CAP PO SCH ×2 (08:22→14:44)
[2019-05-27] MEDS: Folic Acid 1 MG TAB PO SCH (08:22)
[2019-05-27] MEDS: Famotidine 20 MG TAB PO SCH (08:22)
[2019-05-27] MEDS: Sodium Chloride 0.9% 1,000 ML IV SCH ×2 (08:52→15:14)
[2019-05-27] MEDS ORDERED: Polyethylene Glycol 3350 17 GM Packet PO SCH (09:00)
[2019-05-27] MEDS ORDERED: Senokot S 8.6-50 MG TAB PO SCH (09:00)
[2019-05-27] MEDS ORDERED: Ergocalciferol 1.25 MG(50,000 UNITS) CAP PO SCH (09:00)
[2019-05-27 12:12] LABS: Creatinine, Urine 34.1 mg/dL (47-110)
--- NOTE | 2019-05-27 12:44 | PRG ---
DATE OF SERVICE: 05/27/2019 Ms. Barraza is a 49-year-old, mentally challenged, schizophrenic lady, who came in with acute kidney injury. This appears to be possibly related to some type of hematologic disorder, which is currently being worked up. This workup will continue as an outpatient. Job ID: [id number]
--- NOTE | 2019-05-27 15:39 | EKG ---
Test Reason : Blood Pressure : / mmHG Vent. Rate : 088 BPM Atrial Rate : 088 BPM P-R Int : 138 ms QRS Dur : 068 ms QT Int : 380 ms P-R-T Axes : 033 017 034 degrees QTc Int : 459 ms Normal sinus rhythm Normal ECG No previous ECGs available Confirmed by MERCY ACUNA ([id number]) on 05/27/2019 3:39:30 PM Referred By: ELAYNE Confirmed By:MERCY ACUNA
[2019-05-27] MEDS: cefTRIAXone\\ROCEPHIN 1 GM in Sodium Chloride 0.9% 100 ML IVPB SCH (16:36)
--- NOTE | 2019-05-27 18:19 | PRG ---
DATE OF SERVICE: 05/27/2019 SUBJECTIVE: Patient was seen and examined at bedside and overnight events noted. Patient denies any shortness of breath or chest pain or palpitation. No history of nausea or vomiting or diarrhea or fever or chills or cramps. OBJECTIVE: GENERAL: This is a morbidly obese female, in no apparent distress. VITAL SIGNS: Temperature 97.3. Heart rate 92. Respiratory rate 16. Blood pressure 134/92. HEENT: Atraumatic, normocephalic. Oral mucosa is moist NECK: Supple. CARDIOVASCULAR: S1, S2 heard. Rate and rhythm regular. RESPIRATORY: Clear to auscultation. GASTROINTESTINAL: Abdomen is soft. MUSCULOSKELETAL: No tenderness. No edema. DERMATOLOGIC: No skin rash. NEUROLOGIC: Alert and awake and oriented X3. No focal neurologic deficits. Moving all the extremities. PSYCHIATRIC: Mood and affect normal. LABORATORY DATA: Potassium is 4.9, BUN is 33, creatinine is 3.4. Hemoglobin is 10.2. ASSESSMENT AND PLAN: 1. Acute kidney injury on chronic kidney disease, stage 4. Renal function is stable, slightly better. 2. Edema, controlled. 3. Hypertension. 4. Anemia. Renal function is better. Advised to follow up with the clinic in 1 week. Job ID: [id number]
--- NOTE | 2019-05-28 05:03 | DIS ---
DATE OF ADMISSION: 05/24/2019 DATE OF DISCHARGE: 05/27/2019 RESIDENT: Jie Dueñas DO ADMITTING ATTENDING: Juan Miguel Younger MD DISCHARGE ATTENDING: Dung Elizalde MD CONSULTS: 1. Nephrology, Dr. Raffy Gaona. 2. Spiritual Care. PROCEDURES: 1. Chest x-ray on May 24, 2019: No evidence of acute cardiopulmonary disease. 2. Renal ultrasound on May 25, 2019: Grossly unremarkable. 3. Abdominal x-ray on May 25, 2019: No acute findings. 4. EKG on May 26, 2019: Normal sinus rhythm, heart rate 88 bpm, unremarkable. PRIMARY DIAGNOSIS: Acute kidney injury on chronic kidney disease, stage 3B. SECONDARY DIAGNOSES: 1. Abdominal pain. 2. Urinary tract infection. 3. Atypical chest pain, likely pleuritic. 4. Weakness. 5. Hypothyroid. 6. Schizophrenia. 7. Bipolar disorder. 8. Incidental splenomegaly. 9. Anemia of chronic disease. 10. Constipation. DISCHARGE MEDICATIONS: 1. Gabapentin 300 mg p.o. t.i.d. 2. Levothyroxine 175 mcg p.o. daily. 3. Mirtazapine 15 mg p.o. at bedtime. 4. Quetiapine (Seroquel) 100 mg p.o. b.i.d. 5. Benzonatate 100 mg p.o. t.i.d. p.r.n. 6. Folic acid 1 mg p.o. daily. 7. Fluoxetine 20 mg p.o. daily. 8. Vitamin D2 at 50,000 units p.o. every seven days. 9. Sumatriptan 100 mg p.o. b.i.d. p.r.n. for migraine. 10. Dicyclomine (Bentyl) 10 mg p.o. q.i.d. 11. Famotidine (Pepcid) 20 mg p.o. daily. 12. MiraLAX 17 g p.o. daily. 13. Sennosides/docusate two tabs p.o. b.i.d. DISCONTINUED MEDICATION: Ranitidine 150 mg p.o. b.i.d. HISTORY OF PRESENT ILLNESS/HOSPITAL COURSE: The patient is a 49-year-old female , who presents with complaints of acute onset of weakness and sensation of feeling like she was going to pass out around 12:00 p.m. on May 24, 2019. The patient stated that she was mopping the floor and suddenly felt "dull sharp" chest pain that moved down her left arm, this was accompanied by nausea and extreme weakness. The patient also stated that her whole body hurt and was cramping, worst in her legs. She also complained of a headache, cough, and congestion that have been going on for 1 week. She was seen by [facility] clinic on May 15, 2019, and was treated for acute sinusitis, given prescription for cefdinir, Medrol Hayes, and Tessalon. She denied any fever, nausea, or vomiting. She had one episode of loose stools two days prior, otherwise denies diarrhea. In general, the patient is a poor historian upon admission. Her daughter was available via phone during the visit and her son was also present in the room and they confirmed and provided portions of the admission history. In the emergency department, she was given 1000 mg Tylenol, 1 L normal saline bolus, and then maintenance IV fluids started at 115 mL/hour of normal saline. Her EKG showed sinus rhythm with no ST changes. The patient was admitted to inpatient on the medical floor. She was treated for her UTI with one dose of Rocephin [address] Gaona with Nephrology was consulted given the patient's acute kidney injury. Her admission creatinine was 4.69 and GFR 12 ( back in January 2019, she had a baseline creatinine of 1.27 and GFR 50). The patient's troponins were trended x2, both negative. Due to muscle cramping and weakness, a CK was checked, which was CK of 88, normal. TSH was 0.2, thought to be due to recent increase of levothyroxine home dose to 175 mcg two weeks prior. Upon review of [facility] patient records, it was discovered that the patient is being worked up as an outpatient for possible blood versus kidney disorder. She sees Dr. Romero, Heme/Oncology and Dr. Gaona with Nephrology as an outpatient for this workup. So far, this workup has shown proliferative antibodies. 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 During this admission, several labs were ordered to consider autoimmune versus AIN versus ATN etiologies of the kidney injury. These labs included a sedimentation rate, MARGARET, complement, urine eosinophils, SPEP, UPEP, light chain, and peripheral smear. At the time of this discharge summary, the complement labs resulted normal, no urine eosinophils were seen, and peripheral smear showed normochromic normocytic anemia with no significant dysplasia. A urine protein, urine sodium, and urine creatinine labs showed a FENa of 5.5% indicating a postobstructive etiology for the MARITZA. Over the following 2 to 3 days, the patient's creatinine continued to trend down. On the morning of May 27, 2019, the patient had a creatinine of 3.40 with a GFR of 17. On this day, the patient also voiced a further history that she felt like she drinks fluids all day long and urinates frequently. The patient was seen by Dr. Callaway from Nephrology on this day, and he thought that the patient's clinical condition was stable. At this point, the patient's workup could be continued as an outpatient. The patient was deemed clinically stable for discharge back to home with very close followup with [facility], Dr. Romero, and Dr. Gaona. DISPOSITION: Stable. DISCHARGE INSTRUCTIONS: 1. Location: Home. 2. Diet: Renal low-protein, low-sodium. 3. Activity: As tolerated. 4. Follow up with Dr. Cisse at [facility] in 2 to 3 days for hospital followup. 5. Follow up with Dr. Gaona, Nephrology in one week. Job ID: [id number] MTDD
[2019-05-28 13:11] LABS: A/G Ratio 0.7 (0.7-1.7); Albumin 2.8 g/dL (2.9-4.4); Alpha 1 0.3 g/dL (0.0-0.4); Alpha 2 0.7 g/dL (0.4-1.0); Beta 1.1 g/dL (0.7-1.3); Gamma 1.7 g/dL (0.4-1.8); Globulin, Total 3.9 g/dL (2.2-3.9); M-Spike Not Observed g/dL (Not Observed); Protein Electrophoresis Intrp Note: (.)
[2019-05-29 15:25] LABS: ANA Symphony (Qualitative) Negative (Negative); ANA Symphony (Quantitative) 0.5 Ratio (< 0.7 Negative); dsDNA IgG Antibody 1.8 IU/mL (<10 Negative)
[2019-05-29 16:09] LABS: Kappa/Lambda Ratio 6.46 (2.04-10.37)
[2019-05-29 18:08] LABS: Albumin-Ur 10.2 % (.); Alpha 1 - Ur 6.8 % (.); Beta-Ur 42.9 % (.); Gamma-Ur 22.1 % (.); M-Spike,% 18.3 % (Not Observed); Protein, Urine 5.8 mg/dL (Not Estab.)
--- NOTE | 2019-05-29 23:42 | PQF ---
RONEY MCKEON IRVIN [id number] CLINICAL DOCUMENTATION CLARIFICATION FORM: POST DISCHARGE Addendum to original discharge summary date: ____ Late entry note date: __ DATE:05/29/2019 ATTN:DINA YOUNG Please exercise your independent, professional judgment in responding to the clarification form. Clinical indicators are provided on the bottom of this form for your review Please check appropriate box(s) to clarify if the following diagnosis has been ruled in or ruled out: Monosomy [ ] Ruled in diagnosis [ ] Continue to treat [ ] Resolved [ ] Ruled out diagnosis [ ] Cannot rule out diagnosis [ ] Other diagnosis [ ] Unable to determine For continuity of documentation, please document condition throughout progress notes and discharge summary. Thank You. 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 All Rights Reserved [email or web address] Mobile [not provided] SUSAND
== END 2019-05-27 17:03 | disposition home or self-care (01) | DRG 683 ==
LOC: ERS 12:33 → T4-B 16:32
PROVIDERS: ADMIT Family Medicine; ATTEND Family Medicine
DX: N17.0 Acute kidney failure with tubular necrosis (principal); N39.0 Urinary tract infection, site not specified; E87.2 Acidosis; E03.9 Hypothyroidism, unspecified; F20.9 Schizophrenia, unspecified; Z90.49 Acquired absence of other specified parts of digestive tract; D64.9 Anemia, unspecified; K21.9 Gastro-esophageal reflux disease without esophagitis; Z98.51 Tubal ligation status; D73.1 Hypersplenism; R07.81 Pleurodynia; R25.2 Cramp and spasm; E86.0 Dehydration; I12.9 Hypertensive chronic kidney disease with stage 1 through stage 4 chronic kidney disease, or unspecified chronic kidney disease; N18.4 Chronic kidney disease, stage 4 (severe); D63.8 Anemia in other chronic diseases classified elsewhere; E87.6 Hypokalemia; K59.00 Constipation, unspecified
CPT/HCPCS: 36415; 71045; 74018; 76770; 80048; 80053; 80306; 80307; 81003; 81015; 82140; 82550; 82570; 82728; 83540; 83550; 83690; 83735; 83883; 84156; 84165; 84166; 84300; 84439; 84443; 84466; 84481; 84484; 84703; 85025; 85060; 85652; 86038; 86160; 86225; 87086; 89190; 90471; 90686; 93005; 93010; 94760; 96360; 96361; G0008; J0696; J1644; J1650; J3490

== ENCOUNTER 2019-07-02 08:16 | Day surgery (SDC) | payer OTHER ==
[2019-07-01 13:36] VITALS: BMI 45.1
[2019-07-02 08:40] LABS: INR-International Normal Ratio 1.2
[2019-07-02 08:41] LABS: PTT 40.8 SEC (22.9-36.1)
--- NOTE | 2019-07-02 13:55 | CT ---
EXAM: CT Renal Perc Biopsy PROVIDED CLINICAL HISTORY: Proteinuria. COMPARISON: None TECHNIQUE: The procedure including the risks and complications were explained to the patient, and informed conse nt was obtained. The patient was placed on the CT scan table in the prone position. Limited noncontrasted CT scan was obtained through the level of the kidneys with grid localizers in place. An area overlying the inferior pole right kidney was marked, and the area was meticulously prepped and draped in usual sterile fashion. The skin and subcutaneous tissues were infiltrated with buffered 1% lidocaine for local anesthesia at the intended puncture site. A small skin incision was made. A 17-gauge guide needle was advanced followed by axial noncontrasted CT images. This was repeated until the tip of the needle was placed w ithin the most peripheral aspect of the posterolateral portion of the inferior pole left kidney. A total of two 18-gauge core needle biopsy specimens were obtained utilizing coaxial technique. Specime ns were evaluated by the pathologist, and glomeruli were seen in each provided specimen. No additional specimens were requested. The needle was removed, and hemostasis was achieved with direct pressure. Follow-up CT images demonst rate no significant perirenal hematoma. Patient's vital signs remained stable during the procedure as well as immediately post procedure. The patient tolerated the procedure well and without immediate complication. The patient was transported to radiology nurses holding area for further monitoring prior to discharge. IMPRESSION: Technically successful CT-guided percutaneous random biopsy of inferior pole right kidney.
== END 2019-07-02 13:40 | disposition home or self-care (01) ==
LOC: CT 08:16
PROVIDERS: ATTEND Internal Medicine Nephrology
PROC: BT211ZZ Computerized Tomography (CT Scan) of Right Kidney using Low Osmolar Contrast (ICD-10-PCS; principal; 2019-07-02)
PROC: 0TB03ZX Excision of Right Kidney, Percutaneous Approach, Diagnostic (ICD-10-PCS; principal; 2019-07-02)
DX: D86.84 Sarcoid pyelonephritis (principal); I12.9 Hypertensive chronic kidney disease with stage 1 through stage 4 chronic kidney disease, or unspecified chronic kidney disease; N18.4 Chronic kidney disease, stage 4 (severe); D63.1 Anemia in chronic kidney disease; E03.9 Hypothyroidism, unspecified; K21.9 Gastro-esophageal reflux disease without esophagitis; F20.9 Schizophrenia, unspecified; F31.9 Bipolar disorder, unspecified; M19.90 Unspecified osteoarthritis, unspecified site; Z79.899 Other long term (current) drug therapy; Z88.2 Allergy status to sulfonamides; Z88.5 Allergy status to narcotic agent; Z88.8 Allergy status to other drugs, medicaments and biological substances
CPT/HCPCS: 36415; 50200; 77012; 85610; 85730; 88329

== ENCOUNTER 2019-07-05 09:48 | Inpatient (IN) | payer OTHER ==
[~2019-07-05 09:48] MED LIST: Fentanyl 100 MCG/2 ML VIAL ONE; Midazolam HCl 2 mg/2 ml Vial ONE; Sodium Bicarbonate 2.5 MEQ/5 ML VIAL ONE
[2019-07-05 11:11] LABS: #Eosinphils 0.4 thou/uL (0.0-0.7); #Lymphocytes 0.6 thou/uL (1.20-3.40); #Monocytes 0.5 thou/uL (0.11-0.59); #Neutrophils 3.1 thou/uL (1.40-6.50); %Basophils 1.1 % (0.0-1.0); %Eosinophils 7.7 % (0.0-10.0); %Lymphocytes 12.7 % (21.0-51.0); %Monocytes 10.8 % (0.0-10.0); %Neutrophils 67.7 % (42.0-75.0); Hemoglobin 10.5 g/dL (12.0-16.0); Mean Corpuscular HGB CONC 33.1 g/dL (32.0-36.0); Mean Corpuscular Hemoglobin 28.8 pg (27.0-31.0); Mean Corpuscular Volume 87.2 fL (78.0-98.0); Mean Platelet Volume 8.7 fL (7.4-10.4); Platelet Count 172 thou/uL (130-400); RBC Distribution Width 13.6 % (11.5-14.5); Red Blood Cell (RBC) Count 3.64 mill/uL (4.20-5.40); White Blood Cell (WBC) Count 4.6 thou/uL (4.8-10.8)
[2019-07-05 11:44] LABS: ALT (SGPT) 11 U/L (8-55); AST (SGOT) 14 U/L (5-34); Albumin 3.9 g/dL (3.5-5.0); Alkaline Phosphatase 118 U/L (40-110); Anion Gap 12 mmol/L (10-20); BUN (Urea Nitrogen) 43 mg/dL (7.0-18.7); Bilirubin, Total 0.3 mg/dL (0.2-1.2); Calc. Creatinine Clearance 0 mL/min (70-130); Calcium 11.5 mg/dL (7.8-10.44); Carbon Dioxide 24 mmol/L (22-29); Chloride 105 mmol/L (98-107); Estimated GFR-MDRD 12; Globulin 4.2 g/dL (2.4-3.5); Glucose 95 mg/dL (70-105); Potassium 4.9 mmol/L (3.5-5.1); Protein, Total 8.1 g/dL (6.0-8.3); Sodium 136 mmol/L (136-145)
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
[2019-07-05] MEDS ORDERED: Heparin 5,000 UNITS/ML VIAL SC SCH (15:00)
[2019-07-05] MEDS ORDERED: predniSONE 20 MG TAB PO SCH (15:15)
[2019-07-05 15:26] VITALS: BMI 43.9
[2019-07-05] MEDS: Sodium Chloride 0.9% 1,000 ML IV SCH ×2 (16:41→23:55)
[2019-07-05] MEDS: Acetaminophen 325 MG TAB PO PRN ×2 (16:52→23:55)
[2019-07-05] MEDS: Ondansetron PF 4 MG/2 ML Vial IVP PRN ×2 (16:52→23:55)
[2019-07-05] MEDS ORDERED: Dicyclomine 10 MG CAP PO PRN (18:09)
--- NOTE | 2019-07-05 18:45 | CON ---
DATE OF CONSULTATION: REASON FOR CONSULTATION: Elevated creatinine. HISTORY OF PRESENT ILLNESS: A very pleasant 49-year-old female presented to the hospital for hypercalcemia and rise in creatinine. The patient had a kidney biopsy, which showed . The patient denies any nausea, vomiting, or chest pain. Continues to make urine. PAST MEDICAL HISTORY: Significant for sarcoidosis, bipolar disorder, schizophrenia, hypothyroid, hypertension, splenomegaly, GERD, history of renal biopsy, history of bone marrow biopsy, , cholecystectomy. SOCIAL HISTORY: No alcohol or drug use. FAMILY HISTORY: Negative for ESRD. ALLERGIES: REVIEWED. HOME MEDICATION: List reviewed. HOSPITAL MEDICATION: List reviewed. REVIEW OF SYSTEMS: A 15-point review of system was performed and negative except for positives noted above. GENERAL: HEAD: NECK: No swelling or lumps. NOSE: No epistaxis or discharge. EYES: No diplopia or pain. 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 NEUROPSYCHIATRIC SYSTEMS: No suicidal ideation. No ideation. SKIN: Denies any rash or ulcer. CONSTITUTIONAL: No fever or chills. PHYSICAL EXAMINATION: GENERAL: The patient is awake and alert. VITAL SIGNS: Afebrile, pulse 99, breathing 16, and blood pressure 106/59. GENERAL APPEARANCE AND MENTAL STATUS: Fair. HEAD/NECK: Normocephalic. Atraumatic. EYES: EOMI. No deformity. EARS: Clear. No ulcers. NOSE: Intact. No lesions. MOUTH: Clear. No discharge. THROAT: Clear. No exudate. LUNGS: Clear. No crackles. CARDIAC: S1, S2. No rub. ABDOMEN: Benign. Bowel sounds positive. GENITALIA/RECTUM: Loaiza absent. BACK/EXTREMITIES: Edema 0+. NEUROLOGICAL: Alert and motor intact. SKIN: LYMPHATICS: LABORATORY DATA: Reviewed. ASSESSMENT AND PLAN: 1. Acute kidney injury with chronic kidney disease stage 5, most likely due to interstitial . No indication for dialysis. Plan steroid per Dr. Callaway. 2. Hypertension, stable. 3. Anemia, stable. 4. Medication based on GFR appropriate. No indication for dialysis at this time. 5. Hypercalcemia. We would recommend Sensipar. The patient has tertiary hyperparathyroidism. Job ID: [id number]
[2019-07-05 20:31] LABS: Anion Gap 12 mmol/L (10-20); BUN (Urea Nitrogen) 40 mg/dL (7.0-18.7); Calc. Creatinine Clearance 30 mL/min (70-130); Calcium 11.2 mg/dL (7.8-10.44); Carbon Dioxide 22 mmol/L (22-29); Chloride 106 mmol/L (98-107); Estimated GFR-MDRD 13; Glucose 98 mg/dL (70-105); Potassium 5.4 mmol/L (3.5-5.1); Sodium 135 mmol/L (136-145)
[2019-07-05] MEDS: Heparin 5,000 UNITS/ML VIAL SC SCH (20:43)
[2019-07-05] MEDS: Mirtazapine 15 MG TAB PO SCH (20:43)
[2019-07-05] MEDS: Senokot S 8.6-50 MG TAB PO SCH (20:43)
[2019-07-05] MEDS ORDERED: Calcitonin,Salmon,Synthetic 200 UNITS/ML SC SCH (21:00)
[2019-07-06 04:54] LABS: Anion Gap 13 mmol/L (10-20); BUN (Urea Nitrogen) 42 mg/dL (7.0-18.7); Calc. Creatinine Clearance 31 mL/min (70-130); Carbon Dioxide 20 mmol/L (22-29); Chloride 107 mmol/L (98-107); Estimated GFR-MDRD 13; Glucose 163 mg/dL (70-105); Potassium 5.4 mmol/L (3.5-5.1); Sodium 135 mmol/L (136-145)
--- NOTE | 2019-07-06 05:30 | PDOC.FM ---
- Subjective Subjective: Doing well this morning. Facial twitching has improved. Complains of WRIGHT overnight, described as all over head and dull ache. No associated n/v. No CP, SOB, fever/chills. Does endorse hot and cold flashes with skin flushing. - Objective MAR Reviewed: Yes Vital Signs & Weight: Vital Signs (12 hours) Temp Pulse Resp BP Pulse Ox 07/06/19 03:39 98.0 F 94 20 109/61 95 07/05/19 23:51 98.2 F 94 20 115/59 L 07/05/19 20:00 97.6 F 95 16 119/60 97 Weight Weight 123.377 kg Result Diagrams: 07/05/19 10:31 07/06/19 12:03 EKG Reviewed by me: Yes (Tele: NSR) Phys Exam - Physical Examination Constitutional: NAD HEENT: PERRLA Neck: supple Respiratory: no wheezing, no rales, no rhonchi, clear to auscultation bilateral Cardiovascular: RRR, no significant murmur, no rub Gastrointestinal: soft, non-tender, no distention, positive bowel sounds Musculoskeletal: no edema Neurological: non-focal Psychiatric: normal affect, A&O x 3 Dx/Plan (1) Hypercalcemia Code(s): E83.52 - HYPERCALCEMIA Status: Acute (2) Hyperkalemia Code(s): E87.5 - HYPERKALEMIA Status: Acute (3) Sarcoidosis Code(s): D86.9 - SARCOIDOSIS, UNSPECIFIED Status: Acute (4) Acute kidney injury superimposed on CKD Code(s): N17.9 - ACUTE KIDNEY FAILURE, UNSPECIFIED; N18.9 - CHRONIC KIDNEY DISEASE, UNSPECIFIED Status: Acute (5) Bipolar 1 disorder Code(s): F31.9 - BIPOLAR DISORDER, UNSPECIFIED Status: Chronic (6) Hypertension Code(s): I10 - ESSENTIAL (PRIMARY) HYPERTENSION Status: Chronic Qualifiers: Hypertension type: essential hypertension Qualified Code(s): I10 - Essential (primary) hypertension (7) Hypothyroidism Code(s): E03.9 - HYPOTHYROIDISM, UNSPECIFIED Status: Chronic Qualifiers: Hypothyroidism type: acquired Qualified Code(s): E03.9 - Hypothyroidism, unspecified (8) Schizophrenia Code(s): F20.9 - SCHIZOPHRENIA, UNSPECIFIED Status: Chronic Qualifiers: Schizophrenia type: unspecified Qualified Code(s): F20.9 - Schizophrenia, unspecified - Plan Plan: 49yo AAF with h/o schizophrenia, Bipolar, HTN, and recently diagnosis sarcoidosis on renal biopsy presents with hypercalcemia and MARITZA. #Symptomatic hypercalcemia - Ca 11.5. likely 2/2 sarcoidosis and tertiary hyperparathyroidism. Improved to 11 with IVF. - Nephro consulted, Known to Dr. Gaona, apprec recs. Recommended continued steroids and sensipar - Started on senispar daily, will need OP f/u for titration up in dose as needed - gentle IV fluid hydration NS @ 100mL/hour - If calcium > 12, consider Calcitonin (4u/kg subcu BID x 2 doses) #MARITZA on CKD - Cr 4.6 -> 4.39 with IVF, Cr 3.4 at discharge in April - renal biopsy showed interstitial nephritis - will hydrate with IV fluids and monitor with serial BMPs. - Appreciate nephrology assistance #Hyperkalemia - K 4.9 -> 5.4, rechecked at noon - No acute changes on telemetry - Likely 2/2 MARITZA on CKD from underlying sarcoidosis - Cont to monitor closely, apprec nephro recs, Kalexate #Sarcoidosis - new diagnosis, renal biopsy this week - nephrology following, apprec recs - has significant renal impairment, Cr 4.62 - Prednisone 80mg daily per nephrology recommendations. #Bipolar disorder / Schizophrenia - continue home medications #Hypothyroidism - continue home medication #HTN - continue home medication #GERD - continue home medication VTE: Heparin BID and SCDs Code: Full IVF: NS @100cc/hr PCP: SHAHID Bush Dispo: Admitted to tele for sx hypercalcemia 2/2 newly diagnosed sarcoidosis. Nephrology consulted, apprec recs. Cont IVF, steroids. Monitor lytes. Anticipate hospitalization >48hrs. Addendum - Attending - Attending Attestation Date/Time: 07/06/19 6990 I personally evaluated the patient and discussed the management with Dr. Jameel Alvarado I agree with the History, Examination, Assessment and Plan documented above with any addition or exceptions noted below.
[2019-07-06] MEDS: Levothyroxine 175 MCG TAB PO SCH (06:37)
[2019-07-06] MEDS ORDERED: Acetaminophen 500 MG TAB PO SCH (07:30)
[2019-07-06] MEDS: Senokot S 8.6-50 MG TAB PO SCH ×2 (08:12→21:15)
[2019-07-06] MEDS: predniSONE 20 MG TAB PO SCH (08:13)
[2019-07-06] MEDS: FLUoxetine HCl 20 MG CAP PO SCH (08:13)
[2019-07-06] MEDS: Folic Acid 1 MG TAB PO SCH (08:13)
[2019-07-06] MEDS: Heparin 5,000 UNITS/ML VIAL SC SCH (08:14)
[2019-07-06] MEDS: Sodium Chloride 0.9% 1,000 ML IV SCH ×2 (08:38→21:14)
[2019-07-06] MEDS ORDERED: Sodium Bicarb 50 MEQ/50 ML Abboject 8.4% SYRINGE IVP SCH (12:00)
[2019-07-06 12:50] LABS: Anion Gap 15 mmol/L (10-20); BUN (Urea Nitrogen) 46 mg/dL (7.0-18.7); Calc. Creatinine Clearance 31 mL/min (70-130); Calcium 10.8 mg/dL (7.8-10.44); Carbon Dioxide 19 mmol/L (22-29); Chloride 106 mmol/L (98-107); Estimated GFR-MDRD 13; Glucose 161 mg/dL (70-105); Potassium 4.8 mmol/L (3.5-5.1); Sodium 135 mmol/L (136-145)
--- NOTE | 2019-07-06 14:04 | PRG ---
DATE OF SERVICE: 07/06/2019 SUBJECTIVE: A 49-year-old lady, being seen for acute kidney injury. The patient denied nausea, vomiting, or chest pain. OBJECTIVE: CONSTITUTIONAL: The patient is awake, alert. VITAL SIGNS: Afebrile, pulse 107, breathing 16, blood pressure 123/71. GENERAL APPEARANCE AND MENTAL STATUS: Fair. HEAD/NECK: Normocephalic. Atraumatic. EYES: EOMI. No deformity. EARS: Clear. No ulcers. NOSE: Intact. No lesions. MOUTH: Clear. No discharge. THROAT: Clear. No exudate. LUNGS: Clear. No crackles. CARDIAC: S1, S2. No rub. ABDOMEN: Benign. Bowel sounds positive. GENITALIA/RECTUM: Loaiza absent. BACK/EXTREMITIES: Edema 0+. NEUROLOGICAL: Alert and motor intact. SKIN: LYMPHATICS: LABORATORY DATA: Potassium 4.8, creatinine 4.2, calcium is 10.8. ASSESSMENT/RECOMMENDATION: 1. Acute kidney injury, improved. 2. Hyperkalemia, improved. 3. Metabolic acidosis. Continue sodium bicarbonate. 4. Anemia, stable. 5. Granulomatous interstitial nephritis. Continue steroids. 6. Hypothyroidism. Please lower the dose of Synthroid. Job ID: [id number]
[2019-07-06] MEDS: SUMAtriptan Succinate 50 MG TAB PO PRN (14:10)
[2019-07-06] MEDS: Acetaminophen 325 MG TAB PO PRN ×2 (18:02→22:15)
[2019-07-06] MEDS: Mirtazapine 15 MG TAB PO SCH (21:14)
[2019-07-07] MEDS: Levothyroxine 175 MCG TAB PO SCH (04:21)
[2019-07-07 04:55] LABS: Anion Gap 12 mmol/L (10-20); BUN (Urea Nitrogen) 47 mg/dL (7.0-18.7); Calc. Creatinine Clearance 37 mL/min (70-130); Calcium 9.7 mg/dL (7.8-10.44); Carbon Dioxide 23 mmol/L (22-29); Chloride 107 mmol/L (98-107); Estimated GFR-MDRD 16; Glucose 113 mg/dL (70-105); Potassium 4.3 mmol/L (3.5-5.1); Sodium 138 mmol/L (136-145)
--- NOTE | 2019-07-07 05:39 | PDOC.FM ---
- Subjective Subjective: Pt doing well this morning. States she was able to ambulate in the halls yesterday, did endorse mild muscle cramping of lower ext. WRIGHT improved, facial twitching improved. Denies any CP, SOB, fever/chills. Had multiple BM's yesterday. Voiding without difficulty. - Objective MAR Reviewed: Yes Vital Signs & Weight: Vital Signs (12 hours) Temp Pulse Resp BP Pulse Ox 07/07/19 04:00 97.3 F L 92 16 132/63 100 07/06/19 19:47 97.1 F L 95 16 116/56 L 96 Weight Admit Weight 123.377 kg Weight 124.738 kg I&O: 07/05/19 07/06/19 07/07/19 06:59 06:59 06:59 Intake Total 1800 2069 Output Total 800 Balance 1000 2069 Result Diagrams: 07/05/19 10:31 07/07/19 03:42 Phys Exam - Physical Examination Constitutional: NAD (resting comfortably) HEENT: moist MMs Neck: supple Respiratory: no wheezing, no rales, no rhonchi, clear to auscultation bilateral Cardiovascular: RRR, no significant murmur, no rub Gastrointestinal: soft, non-tender, no distention, positive bowel sounds Musculoskeletal: no edema Neurological: non-focal Psychiatric: normal affect, A&O x 3 Dx/Plan (1) Hypercalcemia Code(s): E83.52 - HYPERCALCEMIA Status: Acute (2) Hyperkalemia Code(s): E87.5 - HYPERKALEMIA Status: Acute (3) Sarcoidosis Code(s): D86.9 - SARCOIDOSIS, UNSPECIFIED Status: Acute (4) Acute kidney injury superimposed on CKD Code(s): N17.9 - ACUTE KIDNEY FAILURE, UNSPECIFIED; N18.9 - CHRONIC KIDNEY DISEASE, UNSPECIFIED Status: Acute (5) Bipolar 1 disorder Code(s): F31.9 - BIPOLAR DISORDER, UNSPECIFIED Status: Chronic (6) Hypertension Code(s): I10 - ESSENTIAL (PRIMARY) HYPERTENSION Status: Chronic Qualifiers: Hypertension type: essential hypertension Qualified Code(s): I10 - Essential (primary) hypertension (7) Hypothyroidism Code(s): E03.9 - HYPOTHYROIDISM, UNSPECIFIED Status: Chronic Qualifiers: Hypothyroidism type: acquired Qualified Code(s): E03.9 - Hypothyroidism, unspecified (8) Schizophrenia Code(s): F20.9 - SCHIZOPHRENIA, UNSPECIFIED Status: Chronic Qualifiers: Schizophrenia type: unspecified Qualified Code(s): F20.9 - Schizophrenia, unspecified - Plan Plan: 49yo AAF with h/o schizophrenia, Bipolar, HTN, and recently diagnosis sarcoidosis on renal biopsy presents with hypercalcemia and MARITZA. #Symptomatic hypercalcemia, improving - Ca 11.5-> 9.7. likely 2/2 sarcoidosis and tertiary hyperparathyroidism. - Gently IVF of NS@100cc/hr + Sensipar daily - Nephro consulted, Known to Dr. Gaona, apprec recs. Recommended continued steroids and sensipar, will need continued monitoring as OP #MARITZA on CKD, improving - Cr 4.6 -> 3.67 with IVF, Cr 3.4 at discharge in April - renal biopsy demonstrated interstitial nephritis - will hydrate with IV fluids and monitor with serial BMPs. - Appreciate nephrology assistance - Checking Mg and Phos this morning #Hyperkalemia, resolved - K 5.4 -> 4.3 - No acute changes on telemetry - Likely 2/2 MARITZA on CKD from underlying sarcoidosis - s/p Kalexate, multiple BMs, cont to monitor #Sarcoidosis - new diagnosis, renal biopsy this past week - nephrology following, apprec recs - has significant renal impairment - Prednisone 80mg daily per nephrology recommendations. #Bipolar disorder / Schizophrenia - continue home medications #Hypothyroidism - TSH 0.1681, decrease dose of levo to 150mcg, will need recheck in 6wks as OP and likely continued dose adjustments #HTN - continue home medication #GERD - continue home medication VTE: SCDs Code: Full IVF: NS @100cc/hr PCP: SHAHID Bush Dispo: Admitted to tele for sx hypercalcemia 2/2 newly diagnosed sarcoidosis. Nephrology consulted, apprec recs. Cont IVF, steroids. Monitor lytes and renal function. Anticipate hospitalization >48hrs. Addendum - Attending - Attending Attestation Date/Time: 07/07/19 0432 I personally evaluated the patient and discussed the management with Dr. Alvarado I agree with the History, Examination, Assessment and Plan documented above with any addition or exceptions noted below. Patient still with facial fasciculation albeit improved . Good response of calcium lowering with sensipar. Ok transfer to Medical bed.
[2019-07-07] MEDS: Sodium Chloride 0.9% 1,000 ML IV SCH ×2 (06:10→14:55)
[2019-07-07] MEDS: Levothyroxine 150 MCG TAB PO SCH (06:11)
[2019-07-07 07:41] LABS: Magnesium 1.8 mg/dL (1.6-2.6)
[2019-07-07] MEDS: Folic Acid 1 MG TAB PO SCH (09:33)
[2019-07-07] MEDS: Cinacalcet HCl 30 MG TAB PO SCH (09:33)
[2019-07-07] MEDS: predniSONE 20 MG TAB PO SCH (09:33)
[2019-07-07] MEDS: Acetaminophen 325 MG TAB PO PRN ×2 (09:34→21:11)
[2019-07-07] MEDS: FLUoxetine HCl 20 MG CAP PO SCH (09:34)
[2019-07-07] MEDS: Senokot S 8.6-50 MG TAB PO SCH ×2 (09:34→21:12)
--- NOTE | 2019-07-07 14:45 | PRG ---
DATE OF SERVICE: 07/07/2019 SUBJECTIVE: A 49-year-old female, being seen for acute kidney injury. The patient denied any nausea, vomiting, or chest pain. OBJECTIVE: CONSTITUTIONAL: The patient is awake, alert. VITAL SIGNS: Pulse 75, breathing 16, and blood pressure was 115/62. GENERAL APPEARANCE AND MENTAL STATUS: Fair. HEAD/NECK: Normocephalic. Atraumatic. EYES: EOMI. No deformity. EARS: Clear. No ulcers. NOSE: Intact. No lesions. MOUTH: Clear. No discharge. THROAT: Clear. No exudate. LUNGS: Clear. No crackles. CARDIAC: S1, S2. No rub. ABDOMEN: Benign. Bowel sounds positive. GENITALIA/RECTUM: Loaiza absent. BACK/EXTREMITIES: Edema 0+. NEUROLOGICAL: Alert and motor intact. SKIN: LYMPHATICS: LABORATORY DATA: Reviewed. ASSESSMENT/RECOMMENDATIONS: 1. Acute kidney injury with chronic kidney disease, stage 4, stable. 2. Acute tubular necrosis, improved. 3. Hypercalcemia, improved. 4. Anemia, stable. 5. Hyperkalemia, stable. No indication for dialysis. I would recommend decreasing the dose of Synthroid. Job ID: [id number]
[2019-07-07] MEDS: Mirtazapine 15 MG TAB PO SCH (21:12)
[2019-07-07] MEDS: SUMAtriptan Succinate 50 MG TAB PO PRN (22:15)
[2019-07-08] MEDS: Sodium Chloride 0.9% 1,000 ML IV SCH (02:23)
[2019-07-08] MEDS: Levothyroxine 150 MCG TAB PO SCH (05:23)
--- NOTE | 2019-07-08 05:50 | PDOC.FM ---
- Subjective Subjective: Doing well this morning, complains of continued leg cramping and restless legs. - Objective MAR Reviewed: Yes Vital Signs & Weight: Vital Signs (12 hours) Temp Pulse Resp BP Pulse Ox 07/08/19 04:39 98.1 F 79 18 134/83 95 07/08/19 02:28 97 07/08/19 00:08 97.9 F 78 18 124/84 97 07/07/19 21:11 100 07/07/19 19:45 98.1 F 97 18 131/86 96 Weight Admit Weight 123.377 kg Weight 126.598 kg I&O: 07/06/19 07/07/19 07/08/19 06:59 06:59 06:59 Intake Total 1800 3526 1999 Output Total 800 Balance 1000 3526 1999 Result Diagrams: 07/05/19 10:31 07/08/19 05:30 Phys Exam - Physical Examination Constitutional: NAD HEENT: moist MMs, sclera anicteric Neck: supple, full ROM Respiratory: no wheezing, no rales, no rhonchi, clear to auscultation bilateral Cardiovascular: RRR, no significant murmur, no rub Gastrointestinal: soft, non-tender, no distention, positive bowel sounds Musculoskeletal: no edema, pulses present Neurological: non-focal, normal sensation Psychiatric: normal affect, A&O x 3 Skin: no rash, normal turgor Dx/Plan (1) Hypercalcemia Code(s): E83.52 - HYPERCALCEMIA Status: Acute (2) Hyperkalemia Code(s): E87.5 - HYPERKALEMIA Status: Acute (3) Sarcoidosis Code(s): D86.9 - SARCOIDOSIS, UNSPECIFIED Status: Acute (4) Acute kidney injury superimposed on CKD Code(s): N17.9 - ACUTE KIDNEY FAILURE, UNSPECIFIED; N18.9 - CHRONIC KIDNEY DISEASE, UNSPECIFIED Status: Acute (5) GERD (gastroesophageal reflux disease) Code(s): K21.9 - GASTRO-ESOPHAGEAL REFLUX DISEASE WITHOUT ESOPHAGITIS Status: Chronic (6) Hypertension Code(s): I10 - ESSENTIAL (PRIMARY) HYPERTENSION Status: Chronic Qualifiers: Hypertension type: essential hypertension Qualified Code(s): I10 - Essential (primary) hypertension (7) Hypothyroidism Code(s): E03.9 - HYPOTHYROIDISM, UNSPECIFIED Status: Chronic Qualifiers: Hypothyroidism type: acquired Qualified Code(s): E03.9 - Hypothyroidism, unspecified - Plan Plan: 49yo AAF with h/o schizophrenia, Bipolar, HTN, and recently diagnosis sarcoidosis on renal biopsy presents with hypercalcemia and MARITZA. Symptomatic hypercalcemia, improving - Ca 11.5-> 9.7. likely 2/2 sarcoidosis and tertiary hyperparathyroidism. - Gently IVF of NS@100cc/hr + Sensipar daily - Nephro consulted, Known to Dr. Gaona, apprec recs. Recommended continued steroids and sensipar, will need continued monitoring as OP - Likely d/c home soon, depending on nephro recs. MARITZA on CKD, improving - Cr 4.6 -> 3.48 with IVF, Cr 3.4 at discharge in April - renal biopsy demonstrated interstitial nephritis - will hydrate with IV fluids and monitor with serial BMPs. - Appreciate nephrology assistance - Mg and Phos WNL Hyperkalemia, resolved - K 5.4 -> 4 Sarcoidosis - new diagnosis, renal biopsy this past week - nephrology following, apprec recs - has significant renal impairment - Prednisone 80mg daily per nephrology recommendations. Bipolar disorder / Schizophrenia - continue home medications Hypothyroidism - TSH 0.1681, decrease dose of levothyroxine to 150mcg, will need recheck in 6wks as OP and likely continued dose adjustments HTN - continue home medication GERD - continue home medication VTE: SCDs Code: Full IVF: NS @100cc/hr PCP: SHAHID Bush Dispo: Stable, likely LOS >48hrs.
[2019-07-08 06:20] LABS: Anion Gap 12 mmol/L (10-20); BUN (Urea Nitrogen) 51 mg/dL (7.0-18.7); Calc. Creatinine Clearance 40 mL/min (70-130); Calcium 9.4 mg/dL (7.8-10.44); Carbon Dioxide 21 mmol/L (22-29); Chloride 110 mmol/L (98-107); Estimated GFR-MDRD 17; Glucose 106 mg/dL (70-105); Sodium 139 mmol/L (136-145)
[2019-07-08 07:57] VITALS: BP 128/83; TEMP 98.5
[2019-07-08] MEDS: Cinacalcet HCl 30 MG TAB PO SCH (08:51)
[2019-07-08] MEDS: Folic Acid 1 MG TAB PO SCH (08:52)
[2019-07-08] MEDS: FLUoxetine HCl 20 MG CAP PO SCH (08:52)
[2019-07-08] MEDS: Senokot S 8.6-50 MG TAB PO SCH (08:52)
[2019-07-08] MEDS: predniSONE 20 MG TAB PO SCH (08:52)
[2019-07-08] MEDS: Acetaminophen 325 MG TAB PO PRN (08:59)
--- NOTE | 2019-07-08 15:04 | PRG ---
DATE OF SERVICE: 07/08/2019 ADDENDUM: Please add this as an addendum to the note of Dr. Becki Looney. I have examined Ms. Bararza and discussed the case with Dr. Looney. I agree with her assessment and plan. Ms. Barraza had been admitted with hypercalcemia secondary to CKD secondary to sarcoidosis. has been well-controlled with Synalar as per recommendations of Nephrology and she is awaiting discharge. Job ID: [id number]
--- NOTE | 2019-07-08 16:04 | PRG ---
DATE OF SERVICE: 07/08/2019 SUBJECTIVE: Patient was seen and examined at bedside and overnight events noted. Patient denies any shortness of breath or chest pain or palpitation. No history of nausea or vomiting or diarrhea or fever or chills or cramps. OBJECTIVE: GENERAL: This is a well-built female, in no apparent distress. VITAL SIGNS: Temperature 98.5, pulse 73, respiratory rate 18, blood pressure 128/83. HEENT: Atraumatic, normocephalic. Oral mucosa is moist NECK: Supple. CARDIOVASCULAR: S1, S2 heard. Rate and rhythm regular. RESPIRATORY: Clear to auscultation. GASTROINTESTINAL: Abdomen is soft. MUSCULOSKELETAL: No tenderness. No edema. DERMATOLOGIC: No skin rash. NEUROLOGIC: Alert and awake and oriented X3. No focal neurologic deficits. Moving all the extremities. PSYCHIATRIC: Mood and affect normal. LABORATORY DATA: Potassium is 4.0, BUN is 51, creatinine is 3.4. ASSESSMENT AND PLAN: 1. Acute kidney injury on chronic kidney stage 4, improved. 2. Hypercalcemia, improved. We will stop IV fluids. 3. Anemia, stable. 4. Hyperkalemia. 5. History of sarcoidosis. We will continue on steroids for now. Follow up with Rheumatology. Okay to discharge home. Follow up with the clinic in 1 to 2 weeks. Job ID: [id number]
--- NOTE | 2019-07-09 15:09 | DIS ---
DATE OF ADMISSION: 07/05/2019 DATE OF DISCHARGE: 07/08/2019 RESIDENT: Becki Looney MD ADMITTING ATTENDING: Juan Miguel Younger MD. DISCHARGE ATTENDING: Dung Elizalde MD CONSULTS: Dr. Callaway and Dr. Gaona with Nephrology. PROCEDURES: None. PRIMARY DIAGNOSIS: Symptomatic hypercalcemia, likely secondary to sarcoidosis. SECONDARY DIAGNOSES: 1. Acute kidney injury on chronic kidney disease. 2. Bipolar disorder. 3. Schizophrenia disorder. 4. Hypothyroidism. 5. Hypertension. 6. Gastroesophageal reflux disease. DISCHARGE MEDICATIONS: 1. Tylenol. 2. Ergocalciferol. 3. Fluoxetine. 4. Folic acid. 5. Mirtazapine. 6. Quetiapine. 7. Sumatriptan. 8. Cinacalcet. 9. Dicyclomine. 10. Levothyroxine. 11. Prednisone 80 mg. DISCONTINUED MEDICATIONS: None. HISTORY OF PRESENT ILLNESS/HOSPITAL COURSE: Ms. Barraza is a 49-year-old female, who presents to the ER after being called by her coating inspector that she had an abnormal lab value and she needed to be evaluated by the ER. She was recently diagnosed with sarcoidosis and had a biopsy with Dr. Callaway on the Monday prior to admission and followed up with him the day prior to admission for routine laboratory studies, which revealed hypercalcemia with a calcium level of 11.5. She was called and immediately sent to the emergency room to be evaluated. Upon evaluation, she was having symptoms of muscle twitching, muscle cramping and constipation. She denied any increase in her psychiatric symptoms from her baseline. The patient was treated with IV fluids at 100 mL an hour of NS and 80 mg daily of prednisone by the recommendation of the coating inspector. They also recommended cinacalcet as a calcium binding agent. The patient was monitored with serial laboratory studies, which revealed a downtrending calcium level from 11.5 on admission to 9.4 before discharge. The patient was discharged home with instructions for close followup with Nephrology. DISPOSITION: Stable. DISCHARGE INSTRUCTIONS: 1. Location: Home. 2. Diet: Regular. 3. Activity: Ad wayne. 4. Followup: With Nephrology and Primary Care Physician after discharge. Job ID: [id number]
--- NOTE | 2019-07-09 20:04 | PQF ---
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 Clinical indicators are provided on the bottom of this form for your review Can you please further clarify if acute tubular necrosis is ruled in or ruled out? Acute Tubular Necrosis [ ] Ruled in diagnosis [ ] Continue to treat [ ] Resolved [ ] Ruled out diagnosis [ ] Cannot rule out diagnosis [ ] Other diagnosis [ ] Unable to determine In addition, please specify: Present on Admission (POA): [ ] Yes [ ] No [ ] Unable to determine For continuity of documentation, please document condition throughout progress notes and discharge summary. Thank You. CLINICAL INDICATORS - SIGNS / SYMPTOMS / LABS H and P pg.1- presented to ED for abnormal labs H and P pg.4- MARITZA on CKD H and P pg.4- Pt reports generalized fatigue, muscle aches Laboratory- Creatinine 4.62, 4.40, 4.39, 4.27, 3.67, 3.48H PN 12 Dr. Gaona pg.1- Acute tubular necrosis, improved PN 07/08 Dr. Callaway pg.1- Acute kidney injury on CKD 4, improved RISK FACTORS Sarcoidosis- H and P pg.1 Bipolar- H and P pg.2 Hypothyroidism- H and P pg.2 HTN- H and P pg.2 CKD 4- PN 07/08 TREATMENTS IV fluids- MAR Creatinine Monitoring- Laboratory Nephro Consult- Dr. Gaona (This form is maintained as a part of the permanent medical record) 2014 [employer]. All Rights Reserved [email or web address] [not provided] MTDD
== END 2019-07-08 18:12 | disposition home or self-care (01) | DRG 197 ==
LOC: ERS 09:48 → 2NO 15:20 → T4-A 07-07 15:11
PROVIDERS: ADMIT Family Medicine; ATTEND Family Medicine
DX: D86.89 Sarcoidosis of other sites (principal); N17.9 Acute kidney failure, unspecified; E87.2 Acidosis; N18.4 Chronic kidney disease, stage 4 (severe); I12.9 Hypertensive chronic kidney disease with stage 1 through stage 4 chronic kidney disease, or unspecified chronic kidney disease; M54.9 Dorsalgia, unspecified; R16.1 Splenomegaly, not elsewhere classified; D63.1 Anemia in chronic kidney disease; E21.2 Other hyperparathyroidism; E87.5 Hyperkalemia; F31.9 Bipolar disorder, unspecified; F20.9 Schizophrenia, unspecified; E03.9 Hypothyroidism, unspecified; K21.9 Gastro-esophageal reflux disease without esophagitis; Z88.8 Allergy status to other drugs, medicaments and biological substances; Z88.2 Allergy status to sulfonamides; Z88.5 Allergy status to narcotic agent; Z79.890 Hormone replacement therapy; Z79.899 Other long term (current) drug therapy; Z90.49 Acquired absence of other specified parts of digestive tract; Z98.51 Tubal ligation status
CPT/HCPCS: 36415; 80048; 80053; 82652; 83735; 84100; 84439; 84443; 85025; 93005; 96360; J1644; J2405; J3010; J7512

== ENCOUNTER 2019-07-11 17:58 | Emergency (ER) | payer OTHER ==
[2019-07-11] MEDS ORDERED: Morphine 4 MG/ML VIAL ONE (18:38)
[2019-07-11] MEDS ORDERED: Ondansetron PF 4 MG/2 ML Vial ONE (18:38)
[2019-07-11 19:04] LABS: #Basophils 0.2 thou/uL (0.0-0.2); #Eosinphils 0.1 thou/uL (0.0-0.7); #Lymphocytes 0.8 thou/uL (1.20-3.40); #Monocytes 0.9 thou/uL (0.11-0.59); #Neutrophils 11.7 thou/uL (1.40-6.50); %Basophils 1.6 % (0.0-1.0); %Eosinophils 0.4 % (0.0-10.0); %Lymphocytes 5.6 % (21.0-51.0); %Monocytes 6.5 % (0.0-10.0); %Neutrophils 85.9 % (42.0-75.0); Hemoglobin 9.8 g/dL (12.0-16.0); Mean Corpuscular HGB CONC 32.5 g/dL (32.0-36.0); Mean Corpuscular Hemoglobin 28.9 pg (27.0-31.0); Mean Corpuscular Volume 88.9 fL (78.0-98.0); Mean Platelet Volume 7.8 fL (7.4-10.4); Platelet Count 294 thou/uL (130-400); RBC Distribution Width 14.1 % (11.5-14.5); White Blood Cell (WBC) Count 13.7 thou/uL (4.8-10.8)
[2019-07-11 19:34] LABS: ALT (SGPT) 46 U/L (8-55); AST (SGOT) 19 U/L (5-34); Albumin 3.5 g/dL (3.5-5.0); Alkaline Phosphatase 86 U/L (40-110); Anion Gap 13 mmol/L (10-20); BUN (Urea Nitrogen) 47 mg/dL (7.0-18.7); Bilirubin, Total 0.2 mg/dL (0.2-1.2); Calc. Creatinine Clearance 0 mL/min (70-130); Calcium 8.7 mg/dL (7.8-10.44); Carbon Dioxide 20 mmol/L (22-29); Chloride 107 mmol/L (98-107); Estimated GFR-MDRD 23; Globulin 3.5 g/dL (2.4-3.5); Glucose 149 mg/dL (70-105); Potassium 3.9 mmol/L (3.5-5.1); Sodium 136 mmol/L (136-145)
--- NOTE | 2019-07-11 19:49 | CT ---
EXAM: CT Abdomen Pelvis WO Con PROVIDED CLINICAL HISTORY: Pain COMPARISON: 08/16/2018 FINDINGS: Small bilateral pleural effusions. Visualized lung bases appear otherwise clear. There is right-sided hydronephrosis and right-sided hydroureter to the level of the iliac crossing. T he right ureter distal to this is decompressed. There is no evidence for urinary tract calculi or left hydronephrosis. Changes of prior cholecystectomy are seen. The appendix appears normal. There is no bowel dilatation, inflammatory fat stranding, or free air apparent. There is trace pelvic fluid within the cul-de-sac. The osseous structures demonstrate no concerning lytic or blastic lesions. IMPRESSION: 1. Small bilateral pleural effusions. 2. Right-sided hydronephrosis and right hydroureter to the level of the iliac crossing. No evidence f or urinary tract calculi. 3. Trace free pelvic fluid, etiology and significance uncertain.
[2019-07-11 21:02] LABS: Bilirubin Negative (Negative); Blood, Urine Negative (Negative); Clarity Clear (Clear); Glucose, Urine (Dipstick) 100 mg/dL (Negative); Leukocyte Negative Leu/uL (Negative); Nitrite Negative (Negative); Protein, Urine (Dipstick) Negative (Neg-Trace); Urobilinogen Normal mg/dL (Less than 2)
== END 2019-07-11 21:23 | disposition home or self-care (01) ==
LOC: ERS 17:58
DX: R10.9 Unspecified abdominal pain (principal); G43.909 Migraine, unspecified, not intractable, without status migrainosus; E03.9 Hypothyroidism, unspecified; I10 Essential (primary) hypertension; F31.9 Bipolar disorder, unspecified; F20.9 Schizophrenia, unspecified; Z79.899 Other long term (current) drug therapy
CPT/HCPCS: 36415; 74176; 80053; 81003; 85025; 96361; 96374; 96375; J2270; J2405

== ENCOUNTER 2019-07-12 20:26 | Observation (INO) | payer OTHER ==
[2019-07-12] MEDS ORDERED: Morphine 4 MG/ML VIAL ONE ×3 (21:28→23:28)
[2019-07-12] MEDS ORDERED: Ondansetron PF 4 MG/2 ML Vial ONE (21:34)
[2019-07-12 21:38] LABS: Hemoglobin 11.2 g/dL (12.0-16.0); Mean Corpuscular HGB CONC 32.9 g/dL (32.0-36.0); Mean Corpuscular Hemoglobin 29.4 pg (27.0-31.0); Mean Corpuscular Volume 89.2 fL (78.0-98.0); Mean Platelet Volume 7.7 fL (7.4-10.4); Platelet Count 296 thou/uL (130-400); RBC Distribution Width 14.7 % (11.5-14.5)
[2019-07-12 21:55] LABS: Lymphocytes 3 % (21-51); MDiff Complete? YES; Monocytes 2 % (0-10); Neutrophil 95 % (42-75); Nucleated RBC 1 % (0); Platelet Morphology Comment Appears Adequate; RBC Morphology Normal
[2019-07-12 21:59] LABS: Bilirubin Negative (Negative); Blood, Urine Negative (Negative); Clarity Clear (Clear); Glucose, Urine (Dipstick) 150 mg/dL (Negative); Leukocyte Negative Leu/uL (Negative); Nitrite Negative (Negative); Protein, Urine (Dipstick) 20 mg/dL (Neg-Trace); Urobilinogen Normal mg/dL (Less than 2)
[2019-07-12 22:03] LABS: ALT (SGPT) 41 U/L (8-55); AST (SGOT) 27 U/L (5-34); Albumin 3.7 g/dL (3.5-5.0); Alkaline Phosphatase 92 U/L (40-110); Anion Gap 14 mmol/L (10-20); BUN (Urea Nitrogen) 41 mg/dL (7.0-18.7); Bilirubin, Total 0.2 mg/dL (0.2-1.2); Calc. Creatinine Clearance 0 mL/min (70-130); Calcium 8.4 mg/dL (7.8-10.44); Carbon Dioxide 24 mmol/L (22-29); Chloride 104 mmol/L (98-107); Estimated GFR-MDRD 25; Globulin 4.5 g/dL (2.4-3.5); Glucose 148 mg/dL (70-105); Lipase 139 U/L (8-78); Potassium 4.9 mmol/L (3.5-5.1); Protein, Total 8.2 g/dL (6.0-8.3); Sodium 137 mmol/L (136-145)
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
[2019-07-13 02:29] VITALS: BMI 46.7
[2019-07-13] MEDS ORDERED: Ondansetron ODT 4 MG TAB PO PRN (02:33)
[2019-07-13] MEDS ORDERED: Acetaminophen 325 MG TAB PO PRN (02:33)
[2019-07-13] MEDS ORDERED: Morphine 2 MG/ML SYRINGE SLOW IVP PRN (02:33)
[2019-07-13] MEDS ORDERED: SUMAtriptan Succinate 50 MG TAB PO PRN (02:53)
[2019-07-13] MEDS: Lactated Ringer's 1,000 ML IV SCH ×3 (02:56→21:00)
[2019-07-13] MEDS ORDERED: Vancomycin HCl 2.5 GM in Sodium Chloride 0.9% 500 ML IVPB SCH ×2 (03:00→04:00)
[2019-07-13] MEDS: Piperacillin/Tazobactam 3.375 GM in Sodium Chloride 0.9% 100 ML IVPB SCH ×4 (03:05→21:01)
[2019-07-13] MEDS ORDERED: Promethazine HCl 12.5 MG in Sodium Chloride 0.9% 50 ML IVPB PRN (04:24)
[2019-07-13] MEDS ORDERED: Morphine 4 MG/ML VIAL SLOW IVP PRN ×2 (04:27→08:56)
[2019-07-13] MEDS ORDERED: Morphine 2 MG/ML SYRINGE SLOW IVP SCH (04:56)
[2019-07-13] MEDS: Levothyroxine 150 MCG TAB PO SCH (05:05)
[2019-07-13] MEDS ORDERED: Simethicone Chewable 80 MG TAB PO PRN (06:03)
[2019-07-13] MEDS ORDERED: Dicyclomine 10 MG CAP PO SCH (06:15)
[2019-07-13] MEDS ORDERED: Polyethylene Glycol 3350 17 GM Packet PO SCH (06:30)
[2019-07-13] MEDS ORDERED: Ondansetron HCl/PF 4 MG in Sodium Chloride 0.9% 50 ML IVPB PRN (06:55)
--- NOTE | 2019-07-13 07:46 | PDOC.FM ---
- Subjective Subjective: Ivory Barraza seen at bedside this morning. States that she has continued to have abdominal pain, worse on the left but it has improved with the pain medications. States that she has been having the chills and has vomited once overnight. Afebrile overnight. Denies any GI bleeding. Denies chest pain, dyspnea, urinary frequency/dysuria/hematuria. Blood and urine cultures pending , CT w/ and w/o today. On empiric vanc and zosyn. - Objective MAR Reviewed: Yes Vital Signs & Weight: Vital Signs (12 hours) Temp Pulse Resp BP BP Pulse Ox 07/13/19 04:02 97.9 F 86 18 127/86 95 07/13/19 02:00 97.5 F L 87 16 129/90 96 07/13/19 01:41 97.5 F L 87 16 129/90 96 Weight Weight 131.542 kg I&O: 07/12/19 07/13/19 07/14/19 06:59 06:59 06:59 Intake Total 550 Output Total 400 Balance 150 Result Diagrams: 07/12/19 21:24 07/12/19 21:24 Radiology Reviewed by me: Yes Phys Exam - Physical Examination Constitutional: NAD HEENT: moist MMs, sclera anicteric Neck: supple, full ROM Respiratory: no wheezing, no rales, no rhonchi, clear to auscultation bilateral Cardiovascular: RRR, no significant murmur Gastrointestinal: soft, no distention, positive bowel sounds diffuse ttp worse in LUQ and LLQ Musculoskeletal: no edema, pulses present tardive dyskinesia-intermittent brief facial grimacing Lymphatic: no nodes Psychiatric: normal affect, A&O x 3 Skin: no rash, normal turgor, cap refill <2 seconds Dx/Plan (1) SIRS (systemic inflammatory response syndrome) Code(s): R65.10 - SIRS OF NON-INFECTIOUS ORIGIN W/O ACUTE ORGAN DYSFUNCTION Status: Acute (2) MARITZA (acute kidney injury) Code(s): N17.9 - ACUTE KIDNEY FAILURE, UNSPECIFIED Status: Acute (3) Sarcoidosis Code(s): D86.9 - SARCOIDOSIS, UNSPECIFIED Status: Acute (4) Normocytic anemia Code(s): D64.9 - ANEMIA, UNSPECIFIED Status: Chronic (5) CKD (chronic kidney disease) Code(s): N18.9 - CHRONIC KIDNEY DISEASE, UNSPECIFIED Status: Chronic (6) Tardive dyskinesia Code(s): G24.01 - DRUG INDUCED SUBACUTE DYSKINESIA Status: Acute (7) Hypertension Code(s): I10 - ESSENTIAL (PRIMARY) HYPERTENSION Status: Chronic Qualifiers: Hypertension type: essential hypertension Qualified Code(s): I10 - Essential (primary) hypertension (8) Hypothyroidism Code(s): E03.9 - HYPOTHYROIDISM, UNSPECIFIED Status: Chronic Qualifiers: Hypothyroidism type: acquired Qualified Code(s): E03.9 - Hypothyroidism, unspecified (9) Schizophrenia Code(s): F20.9 - SCHIZOPHRENIA, UNSPECIFIED Status: Chronic Qualifiers: Schizophrenia type: unspecified Qualified Code(s): F20.9 - Schizophrenia, unspecified - Plan Plan: 1) SIRS - Diffuse, L>R, abdominal pain with WBC 14 and tachycardia, associated n/v - afebrile, UA negative except for glucose - urine and blood cultures pending - CT scan without yesterday in ED showed: Right hydronephrosis and right hydroureter to the level of the iliac crossing. No evidence for urinary tract calculi, trace free pelvic fluid, small bilateral pleural effusions - uncertain etiology for abdominal pain at this time - had kidney biopsy during last admission earlier this month - abdominal CT scan w and w/o contrast pending. Considering possible diverticulitis vs kidney stone vs mesenteric ischemia vs abdominal infection/ abscess - empiric vanc and zosyn - morphine q4h for pain 2) Sarcoidosis - continue home prednisone 3) Hypothyroidism - continue home meds 4) HTN - continue home meds 5) Migraines - continue home meds 6) Chronic back pain - continue home meds 7) Normocytic anemia - low iron, low TIBC, low transferrin during last hospitalization - likely due to anemia of chronic disease/CKD - continue to monitor
--- NOTE | 2019-07-13 07:49 | CT ---
CT OF THE ABDOMEN AND PELVIS WITH AND WITHOUT IV CONTRAST: INDICATION: Left-sided abdominal pain with sepsis. COMPARISON: Noncontrast CT of the abdomen and pelvis dated 07/11/[address] of the abdomen and pelvis dated . FINDINGS: Mild right-sided hydronephrosis and hydroureter is unchanged. No focal renal lesion is evident. There are small bilateral pleural effusions. There is stable splenomegaly. The gallbladder is surgically absent. No focal hepatic lesion is evident. Pancreas and adrenal glands are normal-appearing. Unopacified large and small bowel are unremarkable-appearing. There is a mild amount of retained stool within the colon. No acute osseous abnormality is evident. There is scattered degenerative and osteoarthritic change. IMPRESSION: 1. Stable small bilateral pleural effusions. 2. Stable mild right-sided hydronephrosis and hydroureter without a visible obstructing ureteral radha culus. No overt CT evidence to suggest presence of pyelonephritis. No large perinephric fluid colle ction is evident. 3. Mild amount of retained stool within the colon. POS: BH
[2019-07-13] MEDS: Cinacalcet HCl 30 MG TAB PO SCH ×2 (08:32→08:40)
[2019-07-13] MEDS: Folic Acid 1 MG TAB PO SCH (08:33)
[2019-07-13] MEDS: predniSONE 20 MG TAB PO SCH (08:33)
[2019-07-13] MEDS: Enoxaparin Sodium 30 MG/0.3 ML SYRINGE SC SCH ×2 (08:33→08:43)
[2019-07-13] MEDS: FLUoxetine HCl 20 MG CAP PO SCH (08:33)
[2019-07-13] MEDS ORDERED: Ergocalciferol 1.25 MG(50,000 UNITS) CAP PO SCH (09:00)
[2019-07-13 10:33] LABS: #Eosinphils 0.1 thou/uL (0.0-0.7); #Lymphocytes 0.5 thou/uL (1.20-3.40); %Lymphocytes 4.7 % (21.0-51.0); %Monocytes 10.3 % (0.0-10.0); Hemoglobin 10.8 g/dL (12.0-16.0); Mean Corpuscular HGB CONC 32.6 g/dL (32.0-36.0); Mean Corpuscular Hemoglobin 29.6 pg (27.0-31.0); Mean Corpuscular Volume 90.9 fL (78.0-98.0); Mean Platelet Volume 7.5 fL (7.4-10.4); Platelet Count 229 thou/uL (130-400); RBC Distribution Width 14.6 % (11.5-14.5); Red Blood Cell (RBC) Count 3.63 mill/uL (4.20-5.40); White Blood Cell (WBC) Count 9.6 thou/uL (4.8-10.8)
[2019-07-13 10:49] LABS: Calcium 7.2 mg/dL (7.8-10.44); Chloride 110 mmol/L (98-107); Potassium 3.4 mmol/L (3.5-5.1); Sodium 139 mmol/L (136-145)
[2019-07-13 11:01] LABS: Glucose 84 mg/dL (70-105)
[2019-07-13 11:02] LABS: Anion Gap 15 mmol/L (10-20); Carbon Dioxide 16 mmol/L (22-29)
[2019-07-13 11:04] LABS: Calc. Creatinine Clearance 67 mL/min (70-130); Estimated GFR-MDRD 30
[2019-07-13 11:05] LABS: BUN (Urea Nitrogen) 36 mg/dL (7.0-18.7)
--- NOTE | 2019-07-13 11:44 | CON ---
DATE OF CONSULTATION: 07/13/2019 CONSULTING PHYSICIAN: Dr. Perez. REASON FOR CONSULTATION: Acute kidney injury, chronic kidney disease. REASON FOR ADMISSION: Abdominal pain. HISTORY OF PRESENT ILLNESS: This is a 49-year-old female with history of CKD, sarcoidosis, recent MARITZA, hypertension, and recently a kidney biopsy, came to the hospital with abdominal pain, has been evaluated. The patient is feeling slightly better. She is also constipated. No fever or chills. No nausea or vomiting. No chest pain. PAST MEDICAL HISTORY: Positive for, 1. Sarcoidosis with renal involvement, biopsy confirmed. 2. History of CKD stage 3 with recent MARITZA. 3. Bipolar disorder. 4. Schizophrenia. 5. Hypothyroidism. 6. Steroid use, which is recently started for sarcoidosis. 7. Hypertension. 8. Splenomegaly. 9. GERD. PAST SURGICAL HISTORY: Renal biopsy, bone marrow biopsy, , cholecystectomy, and bilateral tubal ligation. HOME MEDICATIONS: 1. Vitamin D2. 2. Fluoxetine. 3. Folic acid. 4. Mirtazapine. 5. . 6. Imitrex. 7. Bentyl. 8. Tylenol. 9. Sensipar. 10. Levothyroxine. 11. Prednisone. ALLERGIES: ASPIRIN, IBUPROFEN, SULFA, TRAMADOL, AND TRAZODONE. SOCIAL HISTORY: No smoking, alcohol, or illicit drugs use. FAMILY HISTORY: No history of any kidney disease. REVIEW OF SYSTEMS: CONSTITUTIONAL: Negative for weight loss or gain, ability to conduct usual activities. SKIN: Negative for rash, itching. EYES: Negative for double vision, pain. ENT/MOUTH: Negative for nose bleeding, neck stiffness, pain, tenderness. CARDIOVASCULAR: Negative for palpitations, dyspnea on exertion, orthopnea. RESPIRATORY: Negative for shortness of breath, wheezing, cough, hemoptysis, fever or night sweats. GASTROINTESTINAL: Negative for poor appetite, abdominal pain, heartburn, nausea, vomiting, constipation, or diarrhea. GENITOURINARY: Negative for urgency, frequency, dysuria, nocturia. MUSCULOSKELETAL: Negative for pain, swelling. NEUROLOGIC/PSYCHIATRIC: Negative for anxiety, depression. ALLERGY/IMMUNOLOGIC: Negative for skin rash, bleeding tendency. PHYSICAL EXAMINATION: GENERAL: Reveals a well-built female, in no apparent distress. VITAL SIGNS: Temperature 97.6, pulse 85, respiratory rate 18, and blood pressure 127/87. HEENT: Atraumatic, normocephalic. Oral mucosa moist. NECK: Supple. CARDIOVASCULAR: S1 and S2. Regular rate and rhythm. RESPIRATORY: Clear. GASTROINTESTINAL: Abdomen is soft. MUSCULOSKELETAL: No tenderness. No edema. DERMATOLOGIC: No skin rash. NEUROLOGIC: Alert and awake. PSYCHIATRIC: Mood and affect normal. LABORATORY DATA: Hemoglobin is 10.8. Potassium 3.4, BUN 41, and creatinine is 2.5. ASSESSMENT AND PLAN: 1. Acute kidney injury on chronic kidney disease, stage 3. Renal function continues to get better. Her creatinine on discharge was 3.4 and the peak was at 4.6, now it is 2.5. Much significant improvement, most likely secondary to steroids. 2. Sarcoidosis with renal involvement and biopsy-proven. We will continue on steroids for now. Plan is to have 80 mg p.o. daily for 3 months and then start slow taper. 3. Abdominal pain, multifactorial. Agree with urine culture at this point since she is on steroids. UA may not be reliable. Followup the cultures. 4. Edema, controlled. 5. History of hypertension. 6. Chronic anemia, stable. 7. Continue on steroids. Monitor renal function and electrolytes and we will follow up. Followup urine cultures at this point. 8. Mild hydronephrosis. We will follow that. Since creatinine getting better, we will just follow and watch the creatinine trend. Thank you for the consult. We will follow. Job ID: [id number]
[2019-07-13] MEDS: Dicyclomine 10 MG CAP PO SCH ×3 (12:54→21:01)
[2019-07-13] MEDS: Mirtazapine 15 MG TAB PO SCH (21:01)
[2019-07-13] MEDS: Senokot S 8.6-50 MG TAB PO SCH (21:01)
[2019-07-14] MEDS: Lactated Ringer's 1,000 ML IV SCH ×3 (02:33→16:11)
[2019-07-14] MEDS ORDERED: Vancomycin 1.5 GRAM/300 ML BAG 1.5 GM in Premix Bag 1 BAG IVPB SCH ×2 (04:15→04:30)
[2019-07-14] MEDS: Piperacillin/Tazobactam 3.375 GM in Sodium Chloride 0.9% 100 ML IVPB SCH ×4 (04:37→20:24)
[2019-07-14] MEDS: Levothyroxine 150 MCG TAB PO SCH (05:05)
--- NOTE | 2019-07-14 06:52 | PDOC.FM ---
- Subjective Subjective: Ivory Barraza seen at bedside this morning. States that her abdominal pain is slowly starting to improve and her nausea and vomiting is not as bad. There were no acute events overnight. She was able to eat some food yesterday and hold it down. Blood and urine cultures show no growth to date at this point. Denies any fever, chills, chest pain, dyspnea. Did not have a BM yesterday or overnight. - Objective MAR Reviewed: Yes Vital Signs & Weight: Vital Signs (12 hours) Temp Pulse Resp BP BP Pulse Ox 07/14/19 03:26 98.1 F 70 16 138/81 96 07/13/19 23:36 97.8 F 88 16 114/78 95 07/13/19 19:42 98.3 F 88 12 149/88 H 93 L Weight Admit Weight 131.542 kg Weight 131.542 kg I&O: 07/12/19 07/13/19 07/14/19 06:59 06:59 06:59 Intake Total 550 2930 Output Total 400 Balance 150 2930 Result Diagrams: 07/13/19 10:15 07/13/19 10:15 EKG Reviewed by me: Yes Phys Exam - Physical Examination Constitutional: NAD HEENT: moist MMs, sclera anicteric Neck: supple, full ROM Respiratory: no wheezing, no rales, no rhonchi, clear to auscultation bilateral Cardiovascular: RRR, no significant murmur Gastrointestinal: soft, non-tender, no distention mild diffuse tenderness, improved from yesterday Musculoskeletal: no edema, pulses present Neurological: non-focal, normal sensation, moves all 4 limbs Psychiatric: normal affect, A&O x 3 Skin: no rash, cap refill <2 seconds Dx/Plan (1) SIRS (systemic inflammatory response syndrome) Code(s): R65.10 - SIRS OF NON-INFECTIOUS ORIGIN W/O ACUTE ORGAN DYSFUNCTION Status: Acute (2) MARITZA (acute kidney injury) Code(s): N17.9 - ACUTE KIDNEY FAILURE, UNSPECIFIED Status: Acute (3) Sarcoidosis Code(s): D86.9 - SARCOIDOSIS, UNSPECIFIED Status: Acute (4) Normocytic anemia Code(s): D64.9 - ANEMIA, UNSPECIFIED Status: Chronic (5) CKD (chronic kidney disease) Code(s): N18.9 - CHRONIC KIDNEY DISEASE, UNSPECIFIED Status: Chronic (6) Tardive dyskinesia Code(s): G24.01 - DRUG INDUCED SUBACUTE DYSKINESIA Status: Acute (7) Hypertension Code(s): I10 - ESSENTIAL (PRIMARY) HYPERTENSION Status: Chronic Qualifiers: Hypertension type: essential hypertension Qualified Code(s): I10 - Essential (primary) hypertension (8) Hypothyroidism Code(s): E03.9 - HYPOTHYROIDISM, UNSPECIFIED Status: Chronic Qualifiers: Hypothyroidism type: acquired Qualified Code(s): E03.9 - Hypothyroidism, unspecified (9) Schizophrenia Code(s): F20.9 - SCHIZOPHRENIA, UNSPECIFIED Status: Chronic Qualifiers: Schizophrenia type: unspecified Qualified Code(s): F20.9 - Schizophrenia, unspecified - Plan Plan: 1) SIRS - Diffuse, L>R, abdominal pain with WBC 14 and tachycardia, associated n/v - afebrile, UA negative except for glucose - urine and blood cultures show no growth to date - CT scan without yesterday in ED showed: Right hydronephrosis and right hydroureter to the level of the iliac crossing. No evidence for urinary tract calculi, trace free pelvic fluid, small bilateral pleural effusions, mild to moderate amount of stool in the rectal vault - uncertain etiology for abdominal pain at this time - had kidney biopsy during last admission earlier this month - abdominal CT scan w and w/o contrast pending. Considering possible diverticulitis vs kidney stone vs mesenteric ischemia vs abdominal infection/ abscess - empiric vanc and zosyn until neg blood cultures - tylenol, bentyl, simethicone for pain, avoiding NSAIDs due to kidney function 2) Sarcoidosis - continue home prednisone - plan is for 3 months followed by slow taper - kidney function has been improving since previous admission 3) Hypothyroidism - continue home meds 4) HTN - continue home meds 5) Migraines - continue home meds 6) Chronic back pain - continue home meds 7) Normocytic anemia - low iron, low TIBC, low transferrin during last hospitalization - likely due to anemia of chronic disease/CKD - continue to monitor
[2019-07-14 08:00] LABS: ALT (SGPT) 50 U/L (8-55); AST (SGOT) 22 U/L (5-34); Albumin 2.8 g/dL (3.5-5.0); Alkaline Phosphatase 70 U/L (40-110); Anion Gap 10 mmol/L (10-20); BUN (Urea Nitrogen) 31 mg/dL (7.0-18.7); Bilirubin, Total 0.3 mg/dL (0.2-1.2); Calc. Creatinine Clearance 66 mL/min (70-130); Calcium 7.1 mg/dL (7.8-10.44); Carbon Dioxide 25 mmol/L (22-29); Chloride 108 mmol/L (98-107); Estimated GFR-MDRD 29; Globulin 2.7 g/dL (2.4-3.5); Glucose 77 mg/dL (70-105); Hemoglobin 9.4 g/dL (12.0-16.0); Mean Corpuscular HGB CONC 31.7 g/dL (32.0-36.0); Mean Corpuscular Hemoglobin 28.9 pg (27.0-31.0); Mean Corpuscular Volume 91.1 fL (78.0-98.0); Mean Platelet Volume 7.4 fL (7.4-10.4); Platelet Count 205 thou/uL (130-400); Potassium 3.8 mmol/L (3.5-5.1); Protein, Total 5.5 g/dL (6.0-8.3); RBC Distribution Width 14.5 % (11.5-14.5); Red Blood Cell (RBC) Count 3.25 mill/uL (4.20-5.40); Sodium 139 mmol/L (136-145)
[2019-07-14 08:50] LABS: Eosinophils 4 % (0-10); Hypersemented Neutrophil SLIGHT; Hypochromia SLIGHT = 6-15 cells (100X) (0-5/hpf); Lymphocytes 10 % (21-51); MDiff Complete? YES; Monocytes 12 % (0-10); Neutrophil 74 % (42-75); Platelet Morphology Comment Appears Adequate; Vacuoles SLIGHT; White Blood Cell (WBC) Count 5.3 thou/uL (4.8-10.8)
[2019-07-14] MEDS ORDERED: Acetaminophen 325 MG TAB PO SCH (09:15)
[2019-07-14] MEDS: Dicyclomine 10 MG CAP PO SCH ×4 (09:19→20:23)
[2019-07-14] MEDS: predniSONE 20 MG TAB PO SCH (09:19)
[2019-07-14] MEDS: Cinacalcet HCl 30 MG TAB PO SCH (09:19)
[2019-07-14] MEDS: Folic Acid 1 MG TAB PO SCH (09:20)
[2019-07-14] MEDS: Enoxaparin Sodium 30 MG/0.3 ML SYRINGE SC SCH (09:20)
[2019-07-14] MEDS: FLUoxetine HCl 20 MG CAP PO SCH (09:20)
[2019-07-14] MEDS: Senokot S 8.6-50 MG TAB PO SCH ×2 (09:21→20:24)
[2019-07-14] MEDS: Polyethylene Glycol 3350 17 GM Packet PO SCH (09:21)
--- NOTE | 2019-07-14 12:38 | PRG ---
DATE OF SERVICE: 07/14/2019 SUBJECTIVE: Patient was seen and examined at bedside and overnight events noted. Patient denies any shortness of breath or chest pain or palpitation. No history of nausea or vomiting or diarrhea or fever or chills or cramps. OBJECTIVE: GENERAL: This is a well-built female, in no apparent distress. VITAL SIGNS: Temperature 98.1. Heart rate 78. Respiratory rate 16. Blood pressure 138/81. HEENT: Atraumatic, normocephalic. Oral mucosa is moist NECK: Supple. CARDIOVASCULAR: S1, S2 heard. Rate and rhythm regular. RESPIRATORY: Clear to auscultation. GASTROINTESTINAL: Abdomen is soft. MUSCULOSKELETAL: No tenderness. No edema. DERMATOLOGIC: No skin rash. NEUROLOGIC: Alert and awake and oriented X3. No focal neurologic deficits. Moving all the extremities. PSYCHIATRIC: Mood and affect normal. LABORATORY DATA: Potassium 3.8, BUN is 31, creatinine is 2.1. ASSESSMENT AND PLAN: 1. Acute kidney injury on chronic kidney disease, stage 3, stable. 2. History of sarcoidosis. Continue steroids. 3. Abdominal pain. 4. History of hypertension. 5. Chronic anemia. 6. Edema, controlled. 7. Hypokalemia, better. Renal function is stable. We will avoid nephrotoxins. Job ID: [id number]
[2019-07-14] MEDS: Mirtazapine 15 MG TAB PO SCH (20:24)
[2019-07-15] MEDS: Lactated Ringer's 1,000 ML IV SCH (02:10)
[2019-07-15] MEDS: Piperacillin/Tazobactam 3.375 GM in Sodium Chloride 0.9% 100 ML IVPB SCH ×2 (02:14→08:30)
[2019-07-15] MEDS ORDERED: Vancomycin 1.5 GRAM/300 ML BAG 1.5 GM in Premix Bag 1 BAG IVPB SCH (05:00)
[2019-07-15 05:11] LABS: Vancomycin, Random 22.6 ug/mL (See Comment)
[2019-07-15] MEDS ORDERED: Vancomycin HCl 1 GM in Premix Bag 1 BAG IVPB SCH (05:45)
--- NOTE | 2019-07-15 05:52 | PDOC.FM ---
- Subjective Subjective: Patient denies abdominal pain. States that she had 5 bowel movements yesterday and is feeling much better. She thinks that she may have been constipated. She denies SOB or chest pain. - Objective Vital Signs & Weight: Vital Signs (12 hours) Temp Pulse Resp BP BP Pulse Ox 07/15/19 04:00 97.4 F L 76 18 136/87 96 07/15/19 00:00 98 F 76 18 134/77 95 07/14/19 20:00 97.8 F 88 18 124/80 94 L Weight Admit Weight 131.542 kg Weight 131.542 kg I&O: 07/13/19 07/14/19 07/15/19 06:59 06:59 06:59 Intake Total 550 2930 2300 Output Total 400 Balance 150 2930 2300 Result Diagrams: 07/14/19 07:16 07/14/19 07:16 Phys Exam - Physical Examination Constitutional: NAD Respiratory: no wheezing, clear to auscultation bilateral Cardiovascular: RRR, no significant murmur Gastrointestinal: soft, non-tender, no distention, positive bowel sounds obese Musculoskeletal: no edema, pulses present Neurological: non-focal, moves all 4 limbs Psychiatric: normal affect Skin: no rash, cap refill <2 seconds Dx/Plan (1) SIRS (systemic inflammatory response syndrome) Code(s): R65.10 - SIRS OF NON-INFECTIOUS ORIGIN W/O ACUTE ORGAN DYSFUNCTION Status: Acute (2) CKD (chronic kidney disease) Code(s): N18.9 - CHRONIC KIDNEY DISEASE, UNSPECIFIED Status: Chronic (3) Normocytic anemia Code(s): D64.9 - ANEMIA, UNSPECIFIED Status: Chronic (4) Acute kidney injury superimposed on CKD Code(s): N17.9 - ACUTE KIDNEY FAILURE, UNSPECIFIED; N18.9 - CHRONIC KIDNEY DISEASE, UNSPECIFIED Status: Acute (5) Sarcoidosis Code(s): D86.9 - SARCOIDOSIS, UNSPECIFIED Status: Acute (6) Bipolar 1 disorder Code(s): F31.9 - BIPOLAR DISORDER, UNSPECIFIED Status: Chronic (7) Hypertension Code(s): I10 - ESSENTIAL (PRIMARY) HYPERTENSION Status: Chronic Qualifiers: Hypertension type: essential hypertension Qualified Code(s): I10 - Essential (primary) hypertension (8) Hypothyroidism Code(s): E03.9 - HYPOTHYROIDISM, UNSPECIFIED Status: Chronic Qualifiers: Hypothyroidism type: acquired Qualified Code(s): E03.9 - Hypothyroidism, unspecified (9) Schizophrenia Code(s): F20.9 - SCHIZOPHRENIA, UNSPECIFIED Status: Chronic Qualifiers: Schizophrenia type: unspecified Qualified Code(s): F20.9 - Schizophrenia, unspecified (10) Migraines Code(s): G43.909 - MIGRAINE, UNSP, NOT INTRACTABLE, WITHOUT STATUS MIGRAINOSUS Status: Chronic (11) Chronic back pain Code(s): M54.9 - DORSALGIA, UNSPECIFIED; G89.29 - OTHER CHRONIC PAIN Status: Chronic - Plan Plan: 1) SIRS, rule d out - Diffuse abdominal pain with WBC 14 and tachycardia, associated n/v on initial presentation - afebrile, UA negative except for glucose - urine and blood cultures show no growth to date - CT scan without yesterday in ED showed: Right hydronephrosis and right hydroureter to the level of the iliac crossing. No evidence for urinary tract calculi, trace free pelvic fluid, small bilateral pleural effusions, mild to moderate amount of stool in the rectal vault - Repeat CT scan w and w/o showed stable splenomegaly - Abdominal pain likely 2/2 constipation, n ow resolved - had kidney biopsy during last admission earlier this month - empiric vanc and zosyn, may be dc as pain likely 2/2 constipation, and WBC increased 2/2 to steroids - tylenol, bentyl, simethicone for pain, avoiding NSAIDs due to kidney function 2) Sarcoidosis - continue home prednisone - plan is for 3 months followed by slow taper - kidney function has been improving since previous admission 3) Hypothyroidism - continue home meds 4) HTN - continue home meds 5) Migraines - continue home meds 6) Chronic back pain - continue home meds 7) Normocytic anemia - low iron, low TIBC, low transferrin during last hospitalization - likely due to anemia of chronic disease/CKD - continue to monitor 8) Abdominal pain 2/2 Constipation - multiple bowel movements yesterday, now resolved Dispo: Likely home today Addendum - Attending - Attending Attestation Date/Time: 07/15/19 1010 I personally evaluated the patient and discussed the management with Dr. Higuera I agree with the History, Examination, Assessment and Plan documented above with any addition or exceptions noted below. The patient is stable for discharge. The patient was educated on the importance of using her miralax to continue treating her constipation. She was additionally educated on the importance of keeping her appointment with the [facility] in [place].
[2019-07-15] MEDS: Levothyroxine 150 MCG TAB PO SCH (05:57)
[2019-07-15] MEDS: Polyethylene Glycol 3350 17 GM Packet PO SCH (08:28)
[2019-07-15] MEDS: FLUoxetine HCl 20 MG CAP PO SCH (08:28)
[2019-07-15] MEDS: Folic Acid 1 MG TAB PO SCH (08:28)
[2019-07-15] MEDS: predniSONE 20 MG TAB PO SCH (08:29)
[2019-07-15] MEDS: Dicyclomine 10 MG CAP PO SCH (08:29)
[2019-07-15] MEDS: Cinacalcet HCl 30 MG TAB PO SCH (08:29)
[2019-07-15] MEDS: Senokot S 8.6-50 MG TAB PO SCH (08:31)
[2019-07-15] MEDS: Enoxaparin Sodium 30 MG/0.3 ML SYRINGE SC SCH (08:32)
--- NOTE | 2019-07-15 11:11 | PRG ---
DATE OF SERVICE: 07/15/2019 SUBJECTIVE: A 49-year-old female, being seen for acute kidney injury. The patient denied nausea, vomiting, or chest pain. OBJECTIVE: CONSTITUTIONAL: The patient is awake, alert. VITAL SIGNS: Pulse 75, breathing 16, blood pressure 136/87. GENERAL APPEARANCE AND MENTAL STATUS: Fair. HEAD/NECK: Normocephalic. Atraumatic. EYES: EOMI. No deformity. EARS: Clear. No ulcers. NOSE: Intact. No lesions. MOUTH: Clear. No discharge. THROAT: Clear. No exudate. LUNGS: Clear. No crackles. CARDIAC: S1, S2. No rub. ABDOMEN: Benign. Bowel sounds positive. GENITALIA/RECTUM: Loaiza absent. BACK/EXTREMITIES: Edema 0+. NEUROLOGICAL: Alert and motor intact. SKIN: LYMPHATICS: General: Physical examination. LABORATORY DATA: Labs show hemoglobin 9.4. Creatinine 2.1. ASSESSMENT/RECOMMENDATIONS: 1. Acute kidney injury with chronic kidney disease, stage 4, stable. 2. Hypertension, stable. 3. Anemia, stable. 4. Medication based on GFR appropriate. Job ID: [id number]
[2019-07-15 11:39] VITALS: BP 127/84; TEMP 97.9
[2019-07-15 12:27] LABS: Anion Gap 11 mmol/L (10-20); BUN (Urea Nitrogen) 27 mg/dL (7.0-18.7); Calc. Creatinine Clearance 70 mL/min (70-130); Calcium 7.5 mg/dL (7.8-10.44); Carbon Dioxide 26 mmol/L (22-29); Chloride 105 mmol/L (98-107); Estimated GFR-MDRD 31; Glucose 109 mg/dL (70-105); Potassium 3.5 mmol/L (3.5-5.1); Sodium 138 mmol/L (136-145)
--- NOTE | 2019-07-16 04:52 | DIS ---
DATE OF ADMISSION: 07/12/2019 DATE OF DISCHARGE: 07/15/2019 RESIDENT: Tika Higuera MD ADMITTING ATTENDING: Dung Elizalde MD DISCHARGE ATTENDING: Leo Cobb MD CONSULTS: None PROCEDURES PERFORMED: Abdomen and pelvis CT on 07/13/2019, stable splenomegaly. Stable small bilateral pleural effusion. Stable mild right-sided hydronephrosis and hydroureter without visible obstructing ureteral calculus. No overt CT evidence to suggest presence of pyelonephritis. No large perinephric fluid collection is evident. Mild amount of retained stool within the colon. PRIMARY DIAGNOSIS: Abdominal pain, secondary to constipation. SECONDARY DIAGNOSES: 1. SIRS criteria met, ruled out sepsis. 2. Sarcoidosis. 3. Hypothyroidism. 4. Hypertension. 5. Migraines. 6. Chronic back pain. 7. Normocytic anemia. 8. Hypocalcemia. DISCHARGE MEDICATIONS: 1. Polyethylene glycol 17 g p.o. daily. 2. Mirtazapine 50 mg p.o. at bedtime. 3. Seroquel 100 mg p.o. b.i.d. 4. Folic acid 1 mg p.o. daily. 5. Fluoxetine 20 mg p.o. daily. 6. Ergocalciferol one capsule p.o. weekly. 7. Sumatriptan 100 mg p.o. b.i.d. p.r.n. for headache. 8. Acetaminophen 1000 mg p.o. q.6 hours p.r.n. for pain. 9. Levothyroxine 150 mcg oral daily. 10. Prednisone 20 mg one tab p.o. q.i.d. DISCONTINUED MEDICATIONS: Cinacalcet 30 mg p.o. q.a.m. HISTORY OF PRESENT ILLNESS/HOSPITAL COURSE: A 49-year-old female with past medical history of migraines, hypothyroidism, hypertension, chronic back pain, sarcoidosis, and schizophrenia, complaints of abdominal pain as diffuse aching, improved with eating. She also complains of sharp pain radiating to her back and down her legs, down to her ankles. She denies dysuria or vaginal bleeding. This started after she was recently discharged from the hospital. She was recently diagnosed after renal biopsy of the left kidney on 07/02 with sarcoidosis. She has been started on steroids for this. The patient denied constipation, diarrhea, melena or hematochezia on admission. She reported subjective fever and chills. In the ED , she was given morphine, 3 L normal saline, and Zofran. She was tachycardic with elevated white count of 14. CT abdomen was essentially negative. It showed some mild right hydronephrosis and right hydroureter to the level of the iliac crossing. No urinary calculi. It also showed some stable splenomegaly. The patient was started on empiric vancomycin and Zosyn as she met SIRS criteria. However, her abdominal pain improved with stool softeners and multiple bowel movements. Her elevated white count was likely secondary to her steroids and her tachycardia may have been due to some mild fluid depletion. At discharge, her pain has totally resolved and her belly was nontender to palpation. Vital signs were stable. The patient will continue on her oral steroids 80 mg a day per recommendations of Nephrology. The patient is to follow up with Dr. Callaway as an outpatient. The patient had an elevated calcium in her last hospital stay earlier in June. Calcium was 11.5. She was started on cinacalcet. Her calcium dropped to a level of 7.1 during her admission. Discussed with Dr. Callaway and he states we should discontinue cinacalcet and just watch to see if her calcium improves to normal. The patient will need followup either with Dr. Callaway as an outpatient and with Dr. Cisse. DISPOSITION: Stable. DISCHARGE INSTRUCTIONS: 1. Location: Home. 2. Diet: Heart healthy. 3. Activity: As tolerated. 4. Followup: Follow up with Dr. Cailin Cisse tomorrow at previously scheduled appointment at 07/16/2019. Follow up with Dr. Callaway within 10 days. Job ID: [id number] [facility]
[2019-07-16] MEDS ORDERED: Vancomycin HCl 1 GM in Premix Bag 1 BAG IVPB SCH (06:00)
== END 2019-07-15 14:06 | disposition home or self-care (01) ==
LOC: ERS 20:26 → T4-B 22:51
PROVIDERS: ADMIT Family Medicine; ATTEND Family Medicine
DX: K59.00 Constipation, unspecified (principal); R65.10 Systemic inflammatory response syndrome (SIRS) of non-infectious origin without acute organ dysfunction; D86.9 Sarcoidosis, unspecified; E03.9 Hypothyroidism, unspecified; G43.909 Migraine, unspecified, not intractable, without status migrainosus; G89.29 Other chronic pain; M54.9 Dorsalgia, unspecified; E83.51 Hypocalcemia; J90 Pleural effusion, not elsewhere classified; N13.30 Unspecified hydronephrosis; I12.9 Hypertensive chronic kidney disease with stage 1 through stage 4 chronic kidney disease, or unspecified chronic kidney disease; N18.4 Chronic kidney disease, stage 4 (severe); D63.1 Anemia in chronic kidney disease; Z79.899 Other long term (current) drug therapy; E87.6 Hypokalemia; Z79.52 Long term (current) use of systemic steroids; K21.9 Gastro-esophageal reflux disease without esophagitis; F31.9 Bipolar disorder, unspecified; F20.9 Schizophrenia, unspecified; N17.9 Acute kidney failure, unspecified; Z88.8 Allergy status to other drugs, medicaments and biological substances; Z88.2 Allergy status to sulfonamides; Z88.5 Allergy status to narcotic agent; Z88.6 Allergy status to analgesic agent
CPT/HCPCS: 36415; 51701; 74178; 80048; 80053; 80202; 81003; 83605; 83690; 84145; 85025; 87040; 87086; 87804; 93005; 96361; 96365; 96366; 96367; 96374; 96375; 96376; A4353; G0378; J1650; J2270; J2405; J2543; J2550; J3370; J3490; J7050; J7512; Q0162

== ENCOUNTER 2019-08-25 19:49 | Emergency (ER) | payer OTHER ==
[2019-08-25] MEDS ORDERED: Diazepam 5 MG TAB ONE (21:23)
[2019-08-25] MEDS ORDERED: traMADol HCl 50 MG TAB ONE (21:23)
[2019-08-25 22:07] LABS: Base Excess-Venous 3.3 mmol/L (-2.0 to 3.0); Bicarbonate (HCO3v) 29.6 mmol/L (22.0-28.0); CO2 Tension (PvCO2) 51.1 mmHg (40.0-50.0); Calcium, Ionized 1.16 mmol/L (See Comments:); Chloride 101 mmol/L (98-107); Hemoglobin - Calc 13.3 g/dL (12.0-16.0); Potassium 4.6 mmol/L (3.5-5.1); Sodium 138 mmol/L (138-145); T. Carbon Dioxide 31.2 mmol/L (22.0-28.0); vO2 Saturation-calc 71.4 % (60.0-85.0)
== END 2019-08-25 22:49 | disposition home or self-care (01) ==
LOC: ERS 19:49
DX: F41.1 Generalized anxiety disorder (principal); K02.9 Dental caries, unspecified; R25.2 Cramp and spasm; K03.81 Cracked tooth; G43.909 Migraine, unspecified, not intractable, without status migrainosus; E03.9 Hypothyroidism, unspecified; I10 Essential (primary) hypertension; F31.9 Bipolar disorder, unspecified; F20.9 Schizophrenia, unspecified; Z79.899 Other long term (current) drug therapy; Z79.52 Long term (current) use of systemic steroids
CPT/HCPCS: 82330; 82435; 82803; 84132; 84295; 85014; 99284

== ENCOUNTER 2019-09-20 14:28 | Emergency (ER) | payer OTHER ==
[2019-09-20 15:45] LABS: Bilirubin Negative (Negative); Blood, Urine Negative (Negative); Clarity Clear (Clear); Glucose, Urine (Dipstick) Normal (Negative); Leukocyte Negative Leu/uL (Negative); Nitrite Negative (Negative); Protein, Urine (Dipstick) Negative (Neg-Trace); Urobilinogen Normal mg/dL (Less than 2)
[2019-09-20] MEDS ORDERED: Acetaminophen 500 MG TAB ONE (16:10)
== END 2019-09-20 16:36 | disposition home or self-care (01) ==
LOC: ERS 14:28
DX: R52 Pain, unspecified (principal); G43.909 Migraine, unspecified, not intractable, without status migrainosus; E03.9 Hypothyroidism, unspecified; I10 Essential (primary) hypertension; F31.9 Bipolar disorder, unspecified; F20.9 Schizophrenia, unspecified; Z79.84 Long term (current) use of oral hypoglycemic drugs; Z79.899 Other long term (current) drug therapy
CPT/HCPCS: 81003; 99283

== ENCOUNTER 2019-09-29 00:55 | Emergency (ER) | payer OTHER | END 2019-09-29 02:19 | disposition home or self-care (01) | LOC: ERS 00:55 | DX: L03.012 Cellulitis of left finger (principal); G89.29 Other chronic pain; E03.9 Hypothyroidism, unspecified; I10 Essential (primary) hypertension; F31.9 Bipolar disorder, unspecified; F20.9 Schizophrenia, unspecified; Z79.899 Other long term (current) drug therapy | CPT/HCPCS: 10060 ==

== ENCOUNTER 2019-10-15 13:04 | Outpatient (CLI) | payer OTHER ==
--- NOTE | 2019-10-15 13:37 | RAD ---
PA AND LATERAL VIEWS CHEST: Date: 10/15/2019 HISTORY: Dyspnea. COMPARISON: 08/12/2019. FINDINGS: The heart size is normal. The lungs are well expanded without lobar consolidation, pneumothoraces, or pleural effusions. Bony structures are stable. IMPRESSION: No radiographic evidence of acute cardiopulmonary process. POS: [facility]
== END 2019-10-15 13:05 | disposition home or self-care (01) ==
LOC: RAD 13:04
PROVIDERS: ATTEND Internal Medicine Critical Care Medicine
DX: R06.00 Dyspnea, unspecified (principal)
CPT/HCPCS: 71046

== ENCOUNTER 2019-12-30 12:38 | Emergency (ER) | payer OTHER ==
[2019-12-30] MEDS ORDERED: Acetaminophen 500 MG TAB ONE (14:04)
[2019-12-30] MEDS ORDERED: Ondansetron ODT 4 MG TAB ONE (14:04)
[2019-12-30 16:11] LABS: Bilirubin Negative (Negative); Blood, Urine Negative (Negative); Clarity Clear (Clear); Glucose, Urine (Dipstick) Normal (Negative); Leukocyte Negative Leu/uL (Negative); Nitrite Negative (Negative); Protein, Urine (Dipstick) Negative (Neg-Trace); Urobilinogen Normal mg/dL (Less than 2)
== END 2019-12-30 16:35 | disposition home or self-care (01) ==
LOC: ERS 12:38
DX: B34.9 Viral infection, unspecified (principal); Z20.828 Contact with and (suspected) exposure to other viral communicable diseases; E03.9 Hypothyroidism, unspecified; G43.909 Migraine, unspecified, not intractable, without status migrainosus; F41.9 Anxiety disorder, unspecified; F31.9 Bipolar disorder, unspecified; I10 Essential (primary) hypertension; D86.9 Sarcoidosis, unspecified
CPT/HCPCS: 81003; 99283; Q0162

== ENCOUNTER 2020-02-10 11:13 | Emergency (ER) | payer OTHER | END 2020-02-10 12:30 | disposition home or self-care (01) | LOC: ERS 11:13 | DX: M79.671 Pain in right foot (principal); M79.672 Pain in left foot; E03.9 Hypothyroidism, unspecified; I10 Essential (primary) hypertension; F31.9 Bipolar disorder, unspecified; F41.9 Anxiety disorder, unspecified; F20.9 Schizophrenia, unspecified; Z79.899 Other long term (current) drug therapy | CPT/HCPCS: 99281 ==

== ENCOUNTER 2020-04-08 15:37 | Observation (INO) | payer OTHER ==
--- NOTE | 2020-04-08 16:15 | RAD ---
XR Chest 1 View Portable HISTORY: Syncope COMPARISON: 10/15/2019 FINDINGS: The heart size is normal. The lungs are well expanded without focal areas of consolidation, pneumothorax or pleural effusions. IMPRESSION: No radiographic evidence of acute cardiopulmonary process.
[2020-04-08 16:18] LABS: #Eosinphils 0.2 thou/uL (0.0-0.7); #Lymphocytes 0.9 thou/uL (1.20-3.40); #Monocytes 0.7 thou/uL (0.11-0.59); #Neutrophils 9.5 thou/uL (1.40-6.50); %Eosinophils 1.4 % (0.0-10.0); %Lymphocytes 7.7 % (21.0-51.0); %Monocytes 6.5 % (0.0-10.0); %Neutrophils 84.5 % (42.0-75.0); Hemoglobin 12.1 g/dL (12.0-16.0); Mean Corpuscular HGB CONC 32.8 g/dL (32.0-36.0); Mean Corpuscular Hemoglobin 30.5 pg (27.0-31.0); Mean Corpuscular Volume 92.9 fL (78.0-98.0); Mean Platelet Volume 8.2 fL (7.4-10.4); Platelet Count 251 thou/uL (130-400); RBC Distribution Width 13.7 % (11.5-14.5); Red Blood Cell (RBC) Count 3.95 mill/uL (4.20-5.40); White Blood Cell (WBC) Count 11.2 thou/uL (4.8-10.8)
[2020-04-08 17:09] LABS: BHCG - Serum Negative (NEGATIVE); Pregs Control Background? CLEAR/WHITE (CLR/WHITE); Pregs Control Bar Appear? YES (CONTROL BAR)
[2020-04-08 19:09] LABS: Albumin 3.5 g/dL (3.5-5.0)
[2020-04-08 19:10] LABS: Chloride 113 mmol/L (98-107); Potassium 3.8 mmol/L (3.5-5.1); Sodium 139 mmol/L (136-145)
[2020-04-08 19:11] LABS: Calcium 8.5 mg/dL (7.8-10.44); Glucose 99 mg/dL (70-105)
[2020-04-08 19:12] LABS: Globulin 3.2 g/dL (2.4-3.5); Protein, Total 6.7 g/dL (6.0-8.3)
[2020-04-08 19:13] LABS: Anion Gap 19 mmol/L (10-20); Bilirubin, Total 0.2 mg/dL (0.2-1.2); Carbon Dioxide 11 mmol/L (22-29)
[2020-04-08 19:14] LABS: Alkaline Phosphatase 96 U/L (40-110)
[2020-04-08 19:15] LABS: BUN (Urea Nitrogen) 35 mg/dL (7.0-18.7); Calc. Creatinine Clearance 0 mL/min (70-130); Estimated GFR-MDRD 26
[2020-04-08 19:17] LABS: ALT (SGPT) 15 U/L (8-55); AST (SGOT) 15 U/L (5-34)
[2020-04-08 19:18] LABS: CK (CPK) 50 U/L (29-168); Lipase 100 U/L (8-78)
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
[2020-04-08] MEDS ORDERED: Sodium Chloride 0.9% 1,000 ML IV SCH (22:19)
[2020-04-08] MEDS ORDERED: Ondansetron PF 4 MG/2 ML Vial IVP PRN (22:19)
[2020-04-08] MEDS ORDERED: Ondansetron ODT 4 MG TAB SL PRN (22:19)
[2020-04-08 22:26] VITALS: BMI 46.6
[2020-04-08] MEDS ORDERED: Enoxaparin Sodium 80 MG/0.8 ML SYRINGE SC SCH (23:15)
[2020-04-08 23:55] LABS: Troponin I Less than 0.010 ng/mL (< 0.028)
[2020-04-09 00:42] LABS: Lactic Acid 2.3 mmol/L (0.5-2.2)
[2020-04-09] MEDS: Lactated Ringer's 1,000 ML IV SCH ×3 (03:03→15:20)
[2020-04-09 04:10] LABS: Anion Gap 14 mmol/L (10-20); BUN (Urea Nitrogen) 33 mg/dL (7.0-18.7); Calc. Creatinine Clearance 71 mL/min (70-130); Calcium 8.4 mg/dL (7.8-10.44); Carbon Dioxide 18 mmol/L (22-29); Chloride 112 mmol/L (98-107); Estimated GFR-MDRD 32; Glucose 100 mg/dL (70-105); Potassium 4.5 mmol/L (3.5-5.1); Sodium 139 mmol/L (136-145)
[2020-04-09 04:12] LABS: Troponin I 0.018 ng/mL (< 0.028)
[2020-04-09 04:24] LABS: #Basophils 0.1 thou/uL (0.0-0.2); #Lymphocytes 0.7 thou/uL (1.20-3.40); #Monocytes 1.1 thou/uL (0.11-0.59); %Basophils 0.4 % (0.0-1.0); %Eosinophils 0.3 % (0.0-10.0); %Lymphocytes 4.3 % (21.0-51.0); %Monocytes 6.7 % (0.0-10.0); %Neutrophils 88.4 % (42.0-75.0); Hemoglobin 11.8 g/dL (12.0-16.0); Mean Corpuscular HGB CONC 31.2 g/dL (32.0-36.0); Mean Corpuscular Hemoglobin 29.1 pg (27.0-31.0); Mean Corpuscular Volume 93.3 fL (78.0-98.0); Mean Platelet Volume 8.4 fL (7.4-10.4); Platelet Count 272 thou/uL (130-400); Red Blood Cell (RBC) Count 4.07 mill/uL (4.20-5.40); White Blood Cell (WBC) Count 15.8 thou/uL (4.8-10.8)
[2020-04-09] MEDS ORDERED: Levothyroxine 175 MCG TAB PO SCH (06:00)
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
[2020-04-09 06:53] LABS: Hemoglobin A1c 5.5 % (4.0-6.0)
[2020-04-09 06:56] LABS: Cardiac Risk 3.8 (Less than 4.5)
[2020-04-09] MEDS ORDERED: Enoxaparin Sodium 80 MG/0.8 ML SYRINGE SC SCH (09:00)
[2020-04-09] MEDS ORDERED: Enoxaparin Sodium 40 MG/0.4 ML SYRINGE SC SCH (09:00)
[2020-04-09] MEDS: Famotidine 20 MG TAB PO SCH (09:34)
[2020-04-09] MEDS: Folic Acid 1 MG TAB PO SCH (09:35)
[2020-04-09] MEDS: predniSONE 20 MG TAB PO SCH (09:36)
[2020-04-09] MEDS: FLUoxetine HCl 20 MG CAP PO SCH (09:36)
[2020-04-09] MEDS: Dicyclomine 10 MG CAP PO SCH ×3 (10:38→21:09)
[2020-04-09 13:36] LABS: Amphetamine Not Detected (NotDetected); Barbiturates Screen Not Detected (NotDetected); Benzodiazepine Screen Not Detected (NotDetected); Cocaine Metabolite Screen Not Detected (NotDetected); Medtox Reader # READER 1; Methadone Not Detected (NotDetected); Methamphetamine Not Detected (NotDetected); Opiate Screen Detected (NotDetected); Oxycodone Screen Not Detected (NotDetected); Phencyclidine (PCP) Not Detected (NotDetected); THC/Cannabinoid Screen Not Detected (NotDetected); Tricyclic Screen Detected (NotDetected)
[2020-04-09 13:37] LABS: Medtox Control Line Valid? VALID (VALID)
--- NOTE | 2020-04-09 15:20 | CON ---
DATE OF CONSULTATION: REASON FOR CONSULTATION: Elevated creatinine. HISTORY OF PRESENT ILLNESS: This 50-year-old female followed by Dr. Callaway, presented to the hospital last night with syncope. The patient had a creatinine of 2.3 on admission last night, which improved to 1.9. Her prior baseline was 2 her creatinine peaked to 4.6 in June. The patient denies any nausea, vomiting, or chest pain. PAST MEDICAL HISTORY: Significant for CKD, acute kidney injury, migraine, bipolar disorder, schizophrenia, hypertension, multiple episodes of acute kidney injury, tubal ligation, cholecystectomy, kidney biopsy. FAMILY HISTORY: Negative for ESRD. ALLERGIES: REVIEWED. MEDICATIONS: Home medications list reviewed. Hospital medications list reviewed. REVIEW OF SYSTEMS: Fifteen-point review of systems was performed, negative except for positives noted above. HEENT: Eyes intact, no diplopia. Ears: No hearing loss or earache. Nose: No discharge or bleeding. Chest: No cough or phlegm. Abdomen: No nausea or vomiting. Genitourinary: No hematuria. No Loaiza catheter. Musculoskeletal: No low back pain. No joint swelling or pain. Neurological: No syncope. No seizures. Skin: No complaints of rash or itching. Psychiatric: No depression. Constitutional: No weight loss or loss of appetite. PHYSICAL EXAMINATION: General: The patient is awake and alert. Vital Signs: Afebrile, pulse 75, breathing at 16, blood pressure HEENT: Head normocephalic and atraumatic. Eyes intact, no ulcers. Nose intact, no ulcers. Ears intact, no ulcers. Neck: Supple. No JVD. Chest: Symmetrical and clear. Cardiovascular: Shows S1 and S2, no rub, no murmur. Gastrointestinal: Abdomen is soft, bowel sounds positive. Extremities: Show no edema or ulcers. Skin: Shows no rash or petechiae. Musculoskeletal: Shows no joint swelling or stiffness. Genitourinary: Shows no Loaiza or CVA tenderness. Neurologic: Motor intact. Cranial nerves intact. LABORATORY DATA: Reviewed. ASSESSMENT AND PLAN: 1. Chronic kidney disease stage 3, with acute kidney injury, improved. 2. Hypertension, stable. 3. Anemia, stable. 4. Metabolic acidosis. Continue sodium bicarbonate. No indication for dialysis. I would recommend changing the IV fluid from lactated Ringer's to normal saline. Job ID: [id number]
[2020-04-09] MEDS: Sodium Chloride 0.9% 1,000 ML IV SCH (15:54)
[2020-04-09] MEDS ORDERED: Mirtazapine 15 MG TAB PO SCH (21:00)
[2020-04-09] MEDS: Acetaminophen 500 MG TAB PO PRN (21:09)
[2020-04-09] MEDS: Enoxaparin Sodium 30 MG/0.3 ML SYRINGE SC SCH (21:09)
[2020-04-10] MEDS ORDERED: hydrOXYzine 25 MG TAB PO SCH (03:30)
[2020-04-10] MEDS: Acetaminophen 500 MG TAB PO PRN (03:38)
[2020-04-10] MEDS: Sodium Chloride 0.9% 1,000 ML IV SCH ×2 (03:45→10:52)
[2020-04-10 05:03] LABS: Anion Gap 12 mmol/L (10-20); BUN (Urea Nitrogen) 31 mg/dL (7.0-18.7); Calc. Creatinine Clearance 71 mL/min (70-130); Calcium 8.2 mg/dL (7.8-10.44); Carbon Dioxide 21 mmol/L (22-29); Chloride 113 mmol/L (98-107); Estimated GFR-MDRD 33; Glucose 101 mg/dL (70-105); Potassium 3.7 mmol/L (3.5-5.1); Sodium 142 mmol/L (136-145)
[2020-04-10] MEDS ORDERED: Levothyroxine Sodium 100 MCG TAB PO SCH (06:00)
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
[2020-04-10] MEDS: Enoxaparin Sodium 30 MG/0.3 ML SYRINGE SC SCH (10:43)
[2020-04-10] MEDS: Famotidine 20 MG TAB PO SCH (10:43)
[2020-04-10] MEDS: predniSONE 20 MG TAB PO SCH (10:43)
[2020-04-10] MEDS: Dicyclomine 10 MG CAP PO SCH (10:43)
[2020-04-10] MEDS: FLUoxetine HCl 20 MG CAP PO SCH (10:44)
[2020-04-10] MEDS: Folic Acid 1 MG TAB PO SCH (10:44)
[2020-04-10 11:44] VITALS: BP 136/97; TEMP 97.5
--- NOTE | 2020-04-10 11:52 | PRG ---
DATE OF SERVICE: 04/10/2020 SUBJECTIVE: A 50-year-old female being seen for acute kidney injury. The patient denied any nausea, vomiting, or chest pain. OBJECTIVE: GENERAL: The patient is awake and alert. VITAL SIGNS: Afebrile, pulse 75, breathing at 16, blood pressure 127/79. HEENT: Head normocephalic and atraumatic. Eyes intact, no ulcers. Nose intact, no ulcers. Ears intact, no ulcers. NECK: Supple. No JVD. CHEST: Symmetrical and clear. CARDIOVASCULAR: Shows S1 and S2, no rub, no murmur. GASTROINTESTINAL: Abdomen is soft, bowel sounds positive. EXTREMITIES: Show no edema or ulcers. SKIN: Shows no rash or petechiae. MUSCULOSKELETAL: Shows no joint swelling or stiffness. GENITOURINARY: Shows no Loaiza or CVA tenderness. NEUROLOGIC: Motor intact. Cranial nerves intact.1 LABORATORY DATA: Reviewed. ASSESSMENT AND PLAN: 1. Acute kidney injury on chronic kidney disease, stage 3, stable. 2. Hypertension, stable. 3. Anemia, stable. 4. Medication based on GFR, appropriate. Job ID: [id number]
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
--- NOTE | 2020-04-11 14:23 | EKG ---
Test Reason : SYNCOPE Blood Pressure : / mmHG Vent. Rate : 075 BPM Atrial Rate : 075 BPM P-R Int : 140 ms QRS Dur : 078 ms QT Int : 430 ms P-R-T Axes : 031 009 017 degrees QTc Int : 480 ms Normal sinus rhythm Moderate voltage criteria for LVH, may be normal variant Prolonged QT Abnormal ECG Confirmed by SARMAD VALDEZ, MCKAYLA ([id number]), video editor BARBARA CEJA ([id number]) on 04/11/2020 2:22:43 PM Referred By: SARMAD Confirmed By:MCKAYLA BAÑUELOS MD
== END 2020-04-10 13:30 | disposition home or self-care (01) ==
LOC: ERS 15:37 → EEVIPCON 22:22 → INTOOBSV 22:22 → 2NO 22:22
PROVIDERS: ADMIT Student in an Organized Health Care Education/Training Program; ATTEND Student in an Organized Health Care Education/Training Program
DX: I95.9 Hypotension, unspecified (principal); E05.90 Thyrotoxicosis, unspecified without thyrotoxic crisis or storm; D86.84 Sarcoid pyelonephritis; I12.9 Hypertensive chronic kidney disease with stage 1 through stage 4 chronic kidney disease, or unspecified chronic kidney disease; N18.3 Chronic kidney disease, stage 3 (moderate); N17.9 Acute kidney failure, unspecified; E87.2 Acidosis; D64.9 Anemia, unspecified; R94.31 Abnormal electrocardiogram [ECG] [EKG]; F20.9 Schizophrenia, unspecified; F31.9 Bipolar disorder, unspecified; E03.9 Hypothyroidism, unspecified; E66.9 Obesity, unspecified; Z68.42 Body mass index [BMI] 45.0-49.9, adult; Z79.899 Other long term (current) drug therapy; Z88.2 Allergy status to sulfonamides; Z88.5 Allergy status to narcotic agent; Z88.6 Allergy status to analgesic agent; Z88.8 Allergy status to other drugs, medicaments and biological substances
CPT/HCPCS: 36415; 36600; 71045; 80048; 80053; 80061; 80306; 82550; 83036; 83605; 83690; 84146; 84439; 84443; 84484; 84703; 85025; 85520; 93005; 93010; 93306; 96360; 96361; 96372; G0378; J1650; J7512

== ENCOUNTER 2020-06-11 12:23 | Emergency (ER) | payer OTHER ==
[2020-06-11] MEDS ORDERED: Ondansetron ODT 4 MG TAB ONE (13:33)
[2020-06-11 13:43] LABS: #Eosinphils 0.2 thou/uL (0.0-0.7); #Lymphocytes 0.9 thou/uL (1.20-3.40); #Monocytes 0.4 thou/uL (0.11-0.59); #Neutrophils 3.8 thou/uL (1.40-6.50); %Basophils 0.8 % (0.0-1.0); %Eosinophils 3.3 % (0.0-10.0); %Lymphocytes 16.4 % (21.0-51.0); %Monocytes 7.3 % (0.0-10.0); %Neutrophils 72.2 % (42.0-75.0); Mean Corpuscular Hemoglobin 30.7 pg (27.0-31.0); Mean Corpuscular Volume 93.1 fL (78.0-98.0); Mean Platelet Volume 7.9 fL (7.4-10.4); Platelet Count 249 thou/uL (130-400); RBC Distribution Width 16.8 % (11.5-14.5); Red Blood Cell (RBC) Count 4.23 mill/uL (4.20-5.40); White Blood Cell (WBC) Count 5.3 thou/uL (4.8-10.8)
[2020-06-11 14:08] LABS: ALT (SGPT) 10 U/L (8-55); AST (SGOT) 17 U/L (5-34); Albumin 3.8 g/dL (3.5-5.0); Alkaline Phosphatase 112 U/L (40-110); Anion Gap 12 mmol/L (10-20); BUN (Urea Nitrogen) 15 mg/dL (7.0-18.7); Bilirubin, Total 0.5 mg/dL (0.2-1.2); Calc. Creatinine Clearance 0 mL/min (70-130); Calcium 9.5 mg/dL (7.8-10.44); Carbon Dioxide 22 mmol/L (22-29); Chloride 109 mmol/L (98-107); Estimated GFR-MDRD 42; Glucose 88 mg/dL (70-105); Potassium 4.2 mmol/L (3.5-5.1); Protein, Total 6.8 g/dL (6.0-8.3); Sodium 139 mmol/L (136-145)
[2020-06-11 14:23] LABS: Bilirubin Negative (Negative); Blood, Urine Negative (Negative); Clarity Clear (Clear); Glucose, Urine (Dipstick) Normal (Negative); Ketone, Urine Negative (Negative); Leukocyte Negative Leu/uL (Negative); Nitrite Negative (Negative); Protein, Urine (Dipstick) Negative (Neg-Trace); Specific Gravity, Urine 1.009 (1.002-1.036); Urobilinogen Normal mg/dL (Less than 2)
== END 2020-06-11 15:01 | disposition home or self-care (01) ==
LOC: ERS 12:23
DX: R53.1 Weakness (principal); R11.2 Nausea with vomiting, unspecified; E03.9 Hypothyroidism, unspecified; I10 Essential (primary) hypertension; D86.9 Sarcoidosis, unspecified; F20.9 Schizophrenia, unspecified; F31.9 Bipolar disorder, unspecified; F41.9 Anxiety disorder, unspecified
CPT/HCPCS: 36415; 80053; 81003; 84484; 85025; 93005; Q0162

== ENCOUNTER 2020-08-29 20:18 | Emergency (ER) | payer OTHER ==
[2020-08-29 21:02] LABS: Hemoglobin 10.2 g/dL (12.0-16.0); Mean Corpuscular HGB CONC 33.4 g/dL (32.0-36.0); Mean Corpuscular Hemoglobin 35.3 pg (27.0-31.0); Platelet Count 231 thou/uL (130-400); RBC Distribution Width 17.3 % (11.5-14.5)
[2020-08-29 21:12] LABS: ALT (SGPT) 10 U/L (8-55); AST (SGOT) 13 U/L (5-34); Albumin 3.5 g/dL (3.5-5.0); Alkaline Phosphatase 87 U/L (40-110); Anion Gap 10 mmol/L (10-20); BUN (Urea Nitrogen) 13 mg/dL (7.0-18.7); Bilirubin, Total 0.5 mg/dL (0.2-1.2); Calc. Creatinine Clearance 0 mL/min (70-130); Calcium 8.5 mg/dL (7.8-10.44); Carbon Dioxide 22 mmol/L (22-29); Chloride 111 mmol/L (98-107); Globulin 2.6 g/dL (2.4-3.5); Glucose 132 mg/dL (70-105); Potassium 4.3 mmol/L (3.5-5.1); Protein, Total 6.1 g/dL (6.0-8.3); Sodium 139 mmol/L (136-145)
[2020-08-29 21:19] LABS: #Eosinphils 0.1 thou/uL (0.0-0.7); #Lymphocytes 0.5 thou/uL (1.20-3.40); #Monocytes 0.3 thou/uL (0.11-0.59); #Neutrophils 2.1 thou/uL (1.40-6.50); %Basophils 0.8 % (0.0-1.0); %Lymphocytes 15.2 % (21.0-51.0); %Monocytes 9.9 % (0.0-10.0); %Neutrophils 71.1 % (42.0-75.0); MDiff Complete? YES; Macrocytosis SLIGHT = 6-15 cells (100X) (0-5/hpf)
[2020-08-29 22:21] LABS: Bacteria/HPF 1+ HPF (None Seen); Bilirubin Negative (Negative); Blood, Urine Negative (Negative); Clarity Clear (Clear); Glucose, Urine (Dipstick) Normal (Negative); Ketone, Urine Negative (Negative); Leukocyte 250 Leu/uL (Negative); Nitrite Negative (Negative); Protein, Urine (Dipstick) Negative (Neg-Trace); RBC/HPF 0-3 HPF (0-3); Specific Gravity, Urine 1.007 (1.002-1.036); Urobilinogen Normal mg/dL (Less than 2)
[2020-08-29] MEDS ORDERED: cefTRIAXone\\ROCEPHIN 1 GM VIAL ONE (23:16)
== END 2020-08-29 23:40 | disposition home or self-care (01) ==
LOC: ERS 20:18
DX: N30.00 Acute cystitis without hematuria (principal); M25.552 Pain in left hip; G89.29 Other chronic pain; G43.909 Migraine, unspecified, not intractable, without status migrainosus; E03.9 Hypothyroidism, unspecified; I10 Essential (primary) hypertension; Z79.899 Other long term (current) drug therapy
CPT/HCPCS: 36415; 80053; 81003; 81015; 83605; 85025; 87040; 87077; 87086; 87186; 96374; J0696

== ENCOUNTER 2020-08-31 13:51 | Emergency (ER) | payer OTHER ==
[2020-08-31 14:39] LABS: Bilirubin Negative (Negative); Blood, Urine Negative (Negative); Clarity Clear (Clear); Glucose, Urine (Dipstick) Normal (Negative); Ketone, Urine Negative (Negative); Leukocyte Negative Leu/uL (Negative); Nitrite Negative (Negative); Protein, Urine (Dipstick) Negative (Neg-Trace); Specific Gravity, Urine 1.008 (1.002-1.036); Urobilinogen Normal mg/dL (Less than 2); pH, Urine 6.5 (5.0-9.0)
[2020-08-31 14:50] LABS: #Lymphocytes 0.5 thou/uL (1.20-3.40); #Monocytes 0.6 thou/uL (0.11-0.59); #Neutrophils 5.3 thou/uL (1.40-6.50); %Basophils 0.4 % (0.0-1.0); %Eosinophils 0.2 % (0.0-10.0); %Lymphocytes 7.8 % (21.0-51.0); %Monocytes 9.7 % (0.0-10.0); Hemoglobin 11.5 g/dL (12.0-16.0); Mean Corpuscular HGB CONC 33.2 g/dL (32.0-36.0); Mean Corpuscular Hemoglobin 35.6 pg (27.0-31.0); Mean Platelet Volume 8.1 fL (7.4-10.4); Platelet Count 298 thou/uL (130-400); RBC Distribution Width 16.8 % (11.5-14.5); Red Blood Cell (RBC) Count 3.22 mill/uL (4.20-5.40); White Blood Cell (WBC) Count 6.5 thou/uL (4.8-10.8)
[2020-08-31 15:09] LABS: ALT (SGPT) 10 U/L (8-55); AST (SGOT) 12 U/L (5-34); Albumin 3.9 g/dL (3.5-5.0); Alkaline Phosphatase 94 U/L (40-110); Anion Gap 11 mmol/L (10-20); BUN (Urea Nitrogen) 12 mg/dL (7.0-18.7); Bilirubin, Total 0.4 mg/dL (0.2-1.2); Calc. Creatinine Clearance 0 mL/min (70-130); Carbon Dioxide 21 mmol/L (22-29); Chloride 112 mmol/L (98-107); Globulin 2.8 g/dL (2.4-3.5); Glucose 108 mg/dL (70-105); Potassium 4.2 mmol/L (3.5-5.1); Protein, Total 6.7 g/dL (6.0-8.3); Sodium 140 mmol/L (136-145)
[2020-08-31] MEDS ORDERED: Ondansetron PF 4 MG/2 ML Vial ONE (18:05)
[2020-08-31] MEDS ORDERED: cefTRIAXone\\ROCEPHIN 2 GM VIAL ONE (18:06)
[2020-08-31] MEDS ORDERED: Acetaminophen/Codeine 30-300mg Tablet ONE (18:43)
== END 2020-08-31 20:45 | disposition home or self-care (01) ==
LOC: ERS 13:51
DX: N30.00 Acute cystitis without hematuria (principal); K29.70 Gastritis, unspecified, without bleeding; E03.9 Hypothyroidism, unspecified; I10 Essential (primary) hypertension; D86.9 Sarcoidosis, unspecified; Z87.19 Personal history of other diseases of the digestive system; Z79.899 Other long term (current) drug therapy
CPT/HCPCS: 36415; 80053; 81003; 83605; 85025; 96365; 96375; J0696; J2405

== ENCOUNTER 2020-12-27 16:10 | Emergency (ER) | payer OTHER ==
[2020-12-27 16:55] LABS: #Eosinphils 0.1 thou/uL (0.0-0.7); #Lymphocytes 0.6 thou/uL (1.20-3.40); #Monocytes 0.3 thou/uL (0.11-0.59); #Neutrophils 4.4 thou/uL (1.40-6.50); %Eosinophils 1.6 % (0.0-10.0); %Lymphocytes 10.7 % (21.0-51.0); %Monocytes 5.7 % (0.0-10.0); %Neutrophils 82.1 % (42.0-75.0); Hemoglobin 13.5 g/dL (12.0-16.0); Mean Corpuscular HGB CONC 34.8 g/dL (32.0-36.0); Mean Corpuscular Hemoglobin 37.2 pg (27.0-31.0); Mean Platelet Volume 8.1 fL (7.4-10.4); Platelet Count 233 thou/uL (130-400); Red Blood Cell (RBC) Count 3.62 mill/uL (4.20-5.40); White Blood Cell (WBC) Count 5.4 thou/uL (4.8-10.8)
[2020-12-27 17:11] LABS: MDiff Complete? YES; Macrocytosis SLIGHT = 6-15 cells (100X) (0-5/hpf); Platelet Morphology Comment Appears Adequate
[2020-12-27 17:15] LABS: ALT (SGPT) 13 U/L (8-55); AST (SGOT) 18 U/L (5-34); Albumin 4.1 g/dL (3.5-5.0); Alkaline Phosphatase 121 U/L (40-110); Anion Gap 12 mmol/L (10-20); BUN (Urea Nitrogen) 11 mg/dL (7.0-18.7); Bilirubin, Total 0.5 mg/dL (0.2-1.2); Calc. Creatinine Clearance 0 mL/min (70-130); Calcium 9.7 mg/dL (7.8-10.44); Carbon Dioxide 23 mmol/L (22-29); Chloride 111 mmol/L (98-107); Globulin 3.2 g/dL (2.4-3.5); Glucose 103 mg/dL (70-105); Potassium 4.4 mmol/L (3.5-5.1); Protein, Total 7.3 g/dL (6.0-8.3); Sodium 142 mmol/L (136-145)
[2020-12-27] MEDS ORDERED: Acetaminophen 500 MG TAB ONE (17:24)
== END 2020-12-27 18:28 | disposition home or self-care (01) ==
LOC: ERS 16:10
DX: F43.9 Reaction to severe stress, unspecified (principal); R11.2 Nausea with vomiting, unspecified; E03.9 Hypothyroidism, unspecified; I10 Essential (primary) hypertension; E11.9 Type 2 diabetes mellitus without complications; Z79.899 Other long term (current) drug therapy
CPT/HCPCS: 71045; 80053; 85025

== ENCOUNTER 2021-02-15 18:14 | Emergency (ER) | payer OTHER | END 2021-02-16 11:28 | LOC: ERS 18:14 | DX: T43.022A Poisoning by tetracyclic antidepressants, intentional self-harm, initial encounter (principal); G43.909 Migraine, unspecified, not intractable, without status migrainosus; E03.9 Hypothyroidism, unspecified; I10 Essential (primary) hypertension; Z79.899 Other long term (current) drug therapy; Z20.822 Contact with and (suspected) exposure to COVID-19 | CPT/HCPCS: 36415; 80053; 80306; 80307; 81003; 81015; 81025; 82550; 84443; 84484; 85025; 93005; U0002; U0005 ==

== ENCOUNTER 2021-05-20 11:19 | Outpatient (CLI) | payer OTHER | END 2021-05-20 11:20 | disposition home or self-care (01) | LOC: BICMAMMO 11:19 | PROVIDERS: ATTEND Internal Medicine Nephrology | DX: Z13.820 Encounter for screening for osteoporosis (principal); N18.30 Chronic kidney disease, stage 3 unspecified; D86.9 Sarcoidosis, unspecified; Z79.899 Other long term (current) drug therapy | CPT/HCPCS: 77080 ==

== ENCOUNTER 2021-09-08 17:08 | Emergency (ER) | payer OTHER ==
[2021-09-08 17:53] LABS: #Eosinphils 0.3 thou/uL (0.0-0.7); #Lymphocytes 0.5 thou/uL (1.20-3.40); #Monocytes 0.3 thou/uL (0.11-0.59); #Neutrophils 2.3 thou/uL (1.40-6.50); %Basophils 0.5 % (0.0-1.0); %Eosinophils 7.5 % (0.0-10.0); %Lymphocytes 15.9 % (21.0-51.0); %Neutrophils 68.2 % (42.0-75.0); Hemoglobin 11.6 g/dL (12.0-16.0); Mean Corpuscular HGB CONC 32.7 g/dL (32.0-36.0); Mean Corpuscular Hemoglobin 33.6 pg (27.0-31.0); Mean Platelet Volume 8.4 fL (7.4-10.4); Platelet Count 206 thou/uL (130-400); RBC Distribution Width 14.4 % (11.5-14.5); Red Blood Cell (RBC) Count 3.46 mill/uL (4.20-5.40); White Blood Cell (WBC) Count 3.3 thou/uL (4.8-10.8)
[2021-09-08] MEDS ORDERED: Acetaminophen 500 MG TAB ONE (17:56)
[2021-09-08 18:24] LABS: ALT (SGPT) 10 U/L (8-55); AST (SGOT) 19 U/L (5-34); Albumin 3.6 g/dL (3.5-5.0); Alkaline Phosphatase 105 U/L (40-110); Anion Gap 11 mmol/L (10-20); BUN (Urea Nitrogen) 22 mg/dL (7.0-18.7); Bilirubin, Total 0.3 mg/dL (0.2-1.2); Calc. Creatinine Clearance 0 mL/min (70-130); Calcium 9.3 mg/dL (7.8-10.44); Carbon Dioxide 22 mmol/L (22-29); Chloride 110 mmol/L (98-107); Globulin 3.2 g/dL (2.4-3.5); Glucose 131 mg/dL (70-105); Potassium 3.9 mmol/L (3.5-5.1); Protein, Total 6.8 g/dL (6.0-8.3); Sodium 139 mmol/L (136-145)
[2021-09-08 18:26] LABS: Bacteria/HPF None Seen HPF (None Seen); Bilirubin Negative (Negative); Blood, Urine Negative (Negative); Clarity Clear (Clear); Glucose, Urine (Dipstick) Normal (Negative); Ketone, Urine Negative (Negative); Leukocyte 75 Leu/uL (Negative); Nitrite Negative (Negative); Protein, Urine (Dipstick) Negative (Neg-Trace); RBC/HPF 0-3 HPF (0-3); Specific Gravity, Urine 1.019 (1.002-1.036); Urobilinogen Normal mg/dL (Less than 2); WBC/HPF 0-3 HPF (0-3); pH, Urine 6.5 (5.0-9.0)
== END 2021-09-08 22:49 | disposition home or self-care (01) ==
LOC: ERS 17:08
DX: I95.9 Hypotension, unspecified (principal); R53.1 Weakness; G43.909 Migraine, unspecified, not intractable, without status migrainosus; E03.9 Hypothyroidism, unspecified; I10 Essential (primary) hypertension; E11.9 Type 2 diabetes mellitus without complications; Z79.899 Other long term (current) drug therapy
CPT/HCPCS: 36415; 71045; 80053; 81003; 81015; 83605; 84484; 85025; 93005; 94760

== ENCOUNTER 2023-09-04 00:52 | Emergency (ER) | payer OTHER ==
[2023-09-04] MEDS ORDERED: Morphine 4 MG/ML VIAL ONE ×2 (01:15→03:09)
[2023-09-04] MEDS ORDERED: Ondansetron PF 4 MG/2 ML Vial ONE (01:16)
[2023-09-04 01:41] LABS: #Eosinphils 0.3 thou/uL (0.0-0.7); #Monocytes 0.6 thou/uL (0.11-0.59); #Neutrophils 2.7 thou/uL (1.40-6.50); %Basophils 0.9 % (0.0-1.0); %Eosinophils 5.6 % (0.0-10.0); %Lymphocytes 20.4 % (21.0-51.0); %Monocytes 13.6 % (0.0-10.0); %Neutrophils 59.3 % (42.0-75.0); Hematocrit 37.3 % (36.0-47.0); Hemoglobin 12.9 g/dL (12.0-16.0); Mean Corpuscular HGB CONC 34.6 g/dL (32.0-36.0); Mean Corpuscular Hemoglobin 30.1 pg (27.0-31.0); Mean Corpuscular Volume 86.9 fl (78.0-98.0); Mean Platelet Volume 10.2 fL (7.4-10.4); Platelet Count 261 10x3/uL (130-400); RBC Distribution Width 15.6 % (11.5-14.5); Red Blood Cell (RBC) Count 4.29 mill/uL (4.20-5.40); White Blood Cell (WBC) Count 4.5 10x3/uL (4.8-10.8)
[2023-09-04 02:04] LABS: ALT (SGPT) 10 U/L (8-55); AST (SGOT) 19 U/L (5-34); Albumin 3.9 g/dL (3.5-5.0); Alkaline Phosphatase 101 U/L (40-110); Anion Gap 15 mmol/L (10-20); BUN (Urea Nitrogen) 19 mg/dL (9.8-20.1); Bilirubin, Total 0.5 mg/dL (0.2-1.2); Calc. Creatinine Clearance 0 mL/min (70-130); Calcium 9.9 mg/dL (7.8-10.44); Carbon Dioxide 23 mmol/L (22-29); Chloride 104 mmol/L (98-107); Estimated GFR 49; Globulin 3.6 g/dL (2.4-3.5); Glucose 100 mg/dL (70-105); Potassium 3.7 mmol/L (3.5-5.1); Protein, Total 7.5 g/dL (6.0-8.3); Sodium 138 mmol/L (136-145)
[2023-09-04 02:08] LABS: Troponin I Less than 0.010 ng/mL (< 0.028)
[2023-09-04] MEDS ORDERED: Iopamidol-370 76% 500 ML MDV (1 ML CHARGE) ONE (11:42)
== END 2023-09-04 03:38 | disposition home or self-care (01) ==
LOC: ERS 00:52
DX: R07.89 Other chest pain (principal); Z55.6 Problems related to health literacy; G43.909 Migraine, unspecified, not intractable, without status migrainosus; E03.9 Hypothyroidism, unspecified; I10 Essential (primary) hypertension; G89.29 Other chronic pain; M54.9 Dorsalgia, unspecified; E11.9 Type 2 diabetes mellitus without complications; D86.9 Sarcoidosis, unspecified; Z79.899 Other long term (current) drug therapy
CPT/HCPCS: 36415; 71045; 71275; 80053; 83735; 84484; 85025; 93005; 96374; 96375; 96376; J2270; J2405; Q9967

== ENCOUNTER 2023-09-13 14:00 | Emergency (ER) | payer OTHER ==
[2023-09-13 14:52] LABS: #Monocytes 0.8 thou/uL (0.11-0.59); #Neutrophils 8.7 thou/uL (1.40-6.50); %Basophils 0.1 % (0.0-1.0); %Lymphocytes 7.2 % (21.0-51.0); %Neutrophils 84.3 % (42.0-75.0); Hematocrit 40.4 % (36.0-47.0); Hemoglobin 13.4 g/dL (12.0-16.0); Mean Corpuscular HGB CONC 33.2 g/dL (32.0-36.0); Mean Corpuscular Hemoglobin 30.2 pg (27.0-31.0); Mean Platelet Volume 10.5 fL (7.4-10.4); Platelet Count 292 10x3/uL (130-400); RBC Distribution Width 15.1 % (11.5-14.5); Red Blood Cell (RBC) Count 4.44 mill/uL (4.20-5.40); White Blood Cell (WBC) Count 10.3 10x3/uL (4.8-10.8)
[2023-09-13 15:09] LABS: ALT (SGPT) Less than 7 U/L (8-55); AST (SGOT) 12 U/L (5-34); Albumin 3.9 g/dL (3.5-5.0); Alkaline Phosphatase 102 U/L (40-110); Anion Gap 13 mmol/L (10-20); BUN (Urea Nitrogen) 26 mg/dL (9.8-20.1); Bilirubin, Total 0.3 mg/dL (0.2-1.2); Calc. Creatinine Clearance 0 mL/min (70-130); Calcium 9.6 mg/dL (7.8-10.44); Carbon Dioxide 24 mmol/L (22-29); Chloride 107 mmol/L (98-107); Estimated GFR 41; Globulin 3.5 g/dL (2.4-3.5); Glucose 122 mg/dL (70-105); Potassium 4.9 mmol/L (3.5-5.1); Protein, Total 7.4 g/dL (6.0-8.3); Sodium 139 mmol/L (136-145)
[2023-09-13 15:12] LABS: Troponin I Less than 0.010 ng/mL (< 0.028)
[2023-09-13] MEDS ORDERED: Acetaminophen 500 MG TAB ONE (15:19)
[2023-09-13] MEDS ORDERED: Ketorolac Tromethamine 30 MG (1 mL) VIAL ONE (15:19)
== END 2023-09-13 15:37 | disposition home or self-care (01) ==
LOC: ERS 14:00
DX: R07.81 Pleurodynia (principal); E03.9 Hypothyroidism, unspecified; I10 Essential (primary) hypertension; E11.9 Type 2 diabetes mellitus without complications; Z79.899 Other long term (current) drug therapy
CPT/HCPCS: 36415; 71045; 80053; 84484; 85025; 93005; 96372; J1885

== ENCOUNTER 2024-06-14 13:24 | Inpatient (IN) | payer OTHER ==
[2024-06-14 13:50] LABS: #Basophils 0.04 10x3/uL (0.0-0.2); %Basophils 0.9 % (0.0-1.0); %Eosinophils 5.3 % (0.0-10.0); %Lymphocytes 24.3 % (21.0-51.0); %Monocytes 9.6 % (0.0-10.0); %Neutrophils 59.5 % (42.0-75.0); Hematocrit 39.7 % (36.0-47.0); Hemoglobin 13.1 g/dL (12.0-16.0); Mean Corpuscular Hemoglobin 31.7 pg (27.0-31.0); Mean Corpuscular Volume 96.1 fL (78.0-98.0); Mean Platelet Volume 10.1 fL (7.4-10.4); Platelet Count 234 10x3/uL (130-400); RBC Distribution Width 15.5 % (11.5-14.5); Red Blood Cell (RBC) Count 4.13 mill/uL (4.20-5.40)
[2024-06-14 14:07] LABS: ALT (SGPT) 6 U/L (8-55); AST (SGOT) 14 U/L (5-34); Albumin 3.1 g/dL (3.5-5.0); Alkaline Phosphatase 85 U/L (40-110); Anion Gap 10 mmol/L (10-20); BUN (Urea Nitrogen) 17 mg/dL (9.8-20.1); Bilirubin, Total 0.3 mg/dL (0.2-1.2); CK (CPK) 97 U/L (29-168); Calc. Creatinine Clearance 0 mL/min (70-130); Calcium 8.6 mg/dL (7.8-10.44); Carbon Dioxide 25 mmol/L (22-29); Chloride 109 mmol/L (98-107); Estimated GFR 40; Globulin 2.8 g/dL (2.4-3.5); Glucose 100 mg/dL (70-105); Potassium 3.7 mmol/L (3.5-5.1); Protein, Total 5.9 g/dL (6.0-8.3); Sodium 140 mmol/L (136-145)
[2024-06-14 14:13] LABS: Troponin I Less than 0.010 ng/mL (< 0.028)
[2024-06-14 14:24] LABS: Lipase 36 U/L (8-78); Magnesium 2.3 mg/dL (1.6-2.6)
[2024-06-14 14:25] LABS: Acetaminophen Less than 10 mcg/mL (Less than 10); Alcohol Less than 10.0 mg/dL (Less than 10); Salicylate Less than 8.0 mg/dL (Less than 8.0)
[2024-06-14] MEDS ORDERED: Ondansetron ODT 4 MG TAB SL PRN (16:00)
[2024-06-14] MEDS ORDERED: Acetaminophen 325 MG TAB PO PRN (16:00)
[2024-06-14] MEDS ORDERED: Ondansetron PF 4 MG/2 ML Vial IVP PRN ×2 (16:00→17:35)
[2024-06-14 16:28] LABS: Amphetamine Not Detected (NotDetected); Barbiturates Screen Not Detected (NotDetected); Benzodiazepine Screen Detected (NotDetected); Cocaine Metabolite Screen Not Detected (NotDetected); Methadone Not Detected (NotDetected); Methamphetamine Detected (NotDetected); Opiate Screen Detected (NotDetected); Oxycodone Screen Not Detected (NotDetected); Phencyclidine (PCP) Not Detected (NotDetected); THC/Cannabinoid Screen Not Detected (NotDetected); Tricyclic Screen Not Detected (NotDetected)
[2024-06-14 17:23] LABS: Troponin I Less than 0.010 ng/mL (< 0.028)
[2024-06-14] MEDS ORDERED: Dextrose 50% Abboject 50 ML SYRINGE SLOW IVP PRN (17:35)
[2024-06-14] MEDS ORDERED: Insulin Lispro 100 UNIT/ML 10 ML VIAL SC PRN ×2 (17:35)
[2024-06-14] MEDS ORDERED: Glucagon 1 MG/ML KIT IM PRN (17:35)
[2024-06-14] MEDS ORDERED: Acetaminophen 650 MG Suppository PR PRN (17:35)
[2024-06-14] MEDS ORDERED: Ondansetron ODT 4 MG TAB PO PRN (17:35)
[2024-06-14] MEDS ORDERED: Dextrose 5% in Water 1,000 ML IV PRN (17:35)
[2024-06-14 18:46] LABS: Magnesium 2.2 mg/dL (1.6-2.6)
[2024-06-14 20:43] VITALS: BMI 47.1
[2024-06-14] MEDS: Famotidine 20 MG TAB PO SCH (21:43)
[2024-06-14] MEDS: Potassium Chloride 20 MEQ in Lactated Ringer's 1,000 ML IV SCH (22:00)
[2024-06-14 22:14] LABS: Bilirubin Negative (Negative); Blood, Urine Negative (Negative); CAUTI Indications for Culture Dysuria,urgency,freq; Clarity Clear (Clear); Glucose, Urine (Dipstick) Normal (Negative); Ketone, Urine Negative (Negative); Leukocyte 75 Leu/uL (Negative); Nitrite Negative (Negative); Protein, Urine (Dipstick) Negative (Neg-Trace); RBC/HPF 0-3 HPF (0-3); Specific Gravity, Urine 1.003 (1.002-1.036); Squamous Epithelial 0-3 HPF (0-3); Urobilinogen Normal mg/dL (Less than 2); pH, Urine 6.5 (5.0-9.0)
[2024-06-14 22:15] LABS: Bacteria/HPF Rare-Few HPF (None Seen)
[2024-06-14 22:16] LABS: Urine Culture Reflex No No
[2024-06-14 22:41] LABS: Troponin I Less than 0.010 ng/mL (< 0.028)
[2024-06-14 22:41] LABS: Influenza A by NAA Not Detected (NotDetected); Influenza B by NAA Not Detected (NotDetected); SARS-CoV-2 NAA Rapid Test Not Detected (NotDetected)
[2024-06-15] MEDS: Acetaminophen 325 MG TAB PO PRN (03:26)
[2024-06-15 05:17] LABS: #Basophils 0.06 10x3/uL (0.0-0.2); %Basophils 1.2 % (0.0-1.0); %Eosinophils 4.5 % (0.0-10.0); %Lymphocytes 21.4 % (21.0-51.0); %Monocytes 11.5 % (0.0-10.0); Hematocrit 37.6 % (36.0-47.0); Hemoglobin 12.4 g/dL (12.0-16.0); Mean Corpuscular Hemoglobin 31.9 pg (27.0-31.0); Mean Corpuscular Volume 96.7 fL (78.0-98.0); Mean Platelet Volume 10.4 fL (7.4-10.4); Platelet Count 226 10x3/uL (130-400); RBC Distribution Width 15.5 % (11.5-14.5); Red Blood Cell (RBC) Count 3.89 mill/uL (4.20-5.40)
[2024-06-15] MEDS: Levothyroxine 175 MCG TAB PO SCH (05:44)
[2024-06-15 06:02] LABS: Anion Gap 11 mmol/L (10-20); BUN (Urea Nitrogen) 16 mg/dL (9.8-20.1); Calc. Creatinine Clearance 106 mL/min (70-130); Calcium 8.2 mg/dL (7.8-10.44); Carbon Dioxide 22 mmol/L (22-29); Chloride 113 mmol/L (98-107); Estimated GFR 50; Glucose 95 mg/dL (70-105); Sodium 142 mmol/L (136-145)
[2024-06-15] MEDS: FLU (Fluarix Triv) TS24-25(6MOS UP)/PF 45 MCG/0.5 ML Syringe IM ONE (09:48)
[2024-06-15] MEDS: Senokot S 8.6-50 MG TAB PO PRN (10:02)
[2024-06-15] MEDS ORDERED: Iopamidol-370 76% 500 ML MDV (1 ML CHARGE) ONE (12:50)
[2024-06-15] MEDS ORDERED: Famotidine 20 MG TAB PO PRN (15:42)
[2024-06-15] MEDS ORDERED: hydrOXYzine 25 MG TAB PO PRN (15:45)
[2024-06-15] MEDS: Nitroglycerin 0.4 MG TAB (25 Tab Bottle) SL PRN (16:42)
[2024-06-15 17:04] LABS: Troponin I Less than 0.010 ng/mL (< 0.028)
[2024-06-15] MEDS: Gabapentin 400 MG CAP PO SCH (19:57)
[2024-06-15] MEDS: Topiramate 25 MG TAB PO SCH (19:58)
[2024-06-16] MEDS: Levothyroxine 175 MCG TAB PO SCH (05:39)
[2024-06-16 07:41] LABS: #Basophils 0.07 10x3/uL (0.0-0.2); %Basophils 1.6 % (0.0-1.0); %Eosinophils 6.2 % (0.0-10.0); %Lymphocytes 33.7 % (21.0-51.0); %Monocytes 8.7 % (0.0-10.0); %Neutrophils 49.6 % (42.0-75.0); Hematocrit 38.1 % (36.0-47.0); Hemoglobin 12.3 g/dL (12.0-16.0); Mean Corpuscular HGB CONC 32.3 g/dL (32.0-36.0); Mean Corpuscular Hemoglobin 31.5 pg (27.0-31.0); Mean Corpuscular Volume 97.4 fL (78.0-98.0); Mean Platelet Volume 10.5 fL (7.4-10.4); Platelet Count 235 10x3/uL (130-400); RBC Distribution Width 15.9 % (11.5-14.5); Red Blood Cell (RBC) Count 3.91 mill/uL (4.20-5.40)
[2024-06-16 08:01] LABS: ALT (SGPT) 5 U/L (8-55); AST (SGOT) 11 U/L (5-34); Albumin 2.9 g/dL (3.5-5.0); Alkaline Phosphatase 78 U/L (40-110); Anion Gap 13 mmol/L (10-20); BUN (Urea Nitrogen) 14 mg/dL (9.8-20.1); Bilirubin, Total 0.3 mg/dL (0.2-1.2); Calc. Creatinine Clearance 130 mL/min (70-130); Calcium 8.7 mg/dL (7.8-10.44); Carbon Dioxide 20 mmol/L (22-29); Chloride 112 mmol/L (98-107); Estimated GFR 63; Globulin 2.8 g/dL (2.4-3.5); Glucose 94 mg/dL (70-105); Potassium 4.3 mmol/L (3.5-5.1); Protein, Total 5.7 g/dL (6.0-8.3); Sodium 141 mmol/L (136-145)
[2024-06-16] MEDS: Levothyroxine Sodium 100 MCG TAB PO SCH (09:08)
[2024-06-16] MEDS ORDERED: Regadenoson 0.4 MG/5 ML SYRINGE ONE (09:27)
[2024-06-16] MEDS ORDERED: Adenosine 90 mg (30 mL) VIAL ONE (09:51)
[2024-06-16] MEDS: Folic Acid 1 MG TAB PO SCH (11:06)
[2024-06-16] MEDS: azaTHIOprine 50 MG TAB PO SCH (11:07)
[2024-06-16] MEDS: FLUoxetine HCl 20 MG CAP PO SCH (11:07)
[2024-06-16] MEDS: Sodium Chloride 0.9% 1,000 ML IV SCH (11:08)
[2024-06-16] MEDS: Cholestyramine/Aspartame 4 gm Packet PO SCH (14:11)
[2024-06-16] MEDS: Cariprazine Hcl [Vraylar] 1.5 MG Capsule PO SCH (20:34)
[2024-06-16] MEDS: Melatonin 3 MG TAB PO PRN (20:48)
[2024-06-17] MEDS: Levothyroxine Sodium 100 MCG TAB PO SCH (06:20)
[2024-06-17 06:23] LABS: #Basophils 0.07 10x3/uL (0.0-0.2); %Basophils 1.6 % (0.0-1.0); %Lymphocytes 28.4 % (21.0-51.0); %Monocytes 10.2 % (0.0-10.0); %Neutrophils 53.4 % (42.0-75.0); Hematocrit 37.4 % (36.0-47.0); Hemoglobin 12.2 g/dL (12.0-16.0); Mean Corpuscular HGB CONC 32.6 g/dL (32.0-36.0); Mean Corpuscular Hemoglobin 31.6 pg (27.0-31.0); Mean Corpuscular Volume 96.9 fL (78.0-98.0); Mean Platelet Volume 10.6 fL (7.4-10.4); Platelet Count 247 10x3/uL (130-400); RBC Distribution Width 15.8 % (11.5-14.5); Red Blood Cell (RBC) Count 3.86 mill/uL (4.20-5.40)
[2024-06-17 06:44] LABS: ALT (SGPT) 5 U/L (8-55); AST (SGOT) 12 U/L (5-34); Albumin 2.9 g/dL (3.5-5.0); Alkaline Phosphatase 77 U/L (40-110); Anion Gap 10 mmol/L (10-20); BUN (Urea Nitrogen) 15 mg/dL (9.8-20.1); Bilirubin, Total 0.2 mg/dL (0.2-1.2); Calc. Creatinine Clearance 115 mL/min (70-130); Calcium 8.6 mg/dL (7.8-10.44); Carbon Dioxide 21 mmol/L (22-29); Chloride 111 mmol/L (98-107); Estimated GFR 54; Globulin 2.9 g/dL (2.4-3.5); Glucose 98 mg/dL (70-105); Potassium 4.1 mmol/L (3.5-5.1); Protein, Total 5.8 g/dL (6.0-8.3); Sodium 138 mmol/L (136-145)
[2024-06-17] MEDS: Fioricet 325/50/40 mg Tablet PO PRN (15:32)
[2024-06-17] MEDS: tiZANidine HCl 4 MG TAB PO PRN (20:08)
[2024-06-18 05:01] LABS: Cardiac Risk 4.1 (Less than 4.5)
[2024-06-18 08:01] LABS: Anion Gap 11 mmol/L (10-20); BUN (Urea Nitrogen) 15 mg/dL (9.8-20.1); Calc. Creatinine Clearance 105 mL/min (70-130); Calcium 8.5 mg/dL (7.8-10.44); Carbon Dioxide 20 mmol/L (22-29); Chloride 111 mmol/L (98-107); Estimated GFR 49; Glucose 96 mg/dL (70-105); Potassium 3.9 mmol/L (3.5-5.1); Sodium 138 mmol/L (136-145)
[2024-06-19 05:13] LABS: Anion Gap 10 mmol/L (10-20); BUN (Urea Nitrogen) 19 mg/dL (9.8-20.1); Calc. Creatinine Clearance 104 mL/min (70-130); Calcium 8.4 mg/dL (7.8-10.44); Carbon Dioxide 22 mmol/L (22-29); Chloride 111 mmol/L (98-107); Estimated GFR 48; Glucose 90 mg/dL (70-105); Potassium 4.1 mmol/L (3.5-5.1); Sodium 139 mmol/L (136-145)
[2024-06-19] MEDS ORDERED: Communication Order-Pharmacy FS SCH (07:00)
[2024-06-19] MEDS ORDERED: Sodium Chloride 0.9% 1,000 ML IV SCH (07:00)
[2024-06-19] MEDS ORDERED: Heparin 10,000 UNITS/ 10 ML VIAL ONE (07:14)
[2024-06-19] MEDS ORDERED: Midazolam HCl 2 mg/2 ml Vial ONE (08:35)
[2024-06-19] MEDS ORDERED: fentaNYL 50 mcg/mL 1 mL Vial ONE (08:35)
[2024-06-19] MEDS ORDERED: Verapamil 5 MG/2 ML VIAL ONE (08:37)
[2024-06-19] MEDS ORDERED: Nitroglycerin 50 MG/250 ML BOT 250 ML ONE (08:38)
[2024-06-19] MEDS ORDERED: Sodium Chloride 0.9% 200 ML IV PRN (10:20)
[2024-06-19] MEDS: Sodium Chloride 0.9% 500 ML IV SCH (11:36)
[2024-06-19] MEDS: Amlodipine 5 MG TAB PO SCH (14:39)
[2024-06-19] MEDS: Morphine 2 MG/ML VIAL SLOW IVP PRN (14:45)
[2024-06-20] MEDS: Amlodipine 5 MG TAB PO SCH (08:46)
[2024-06-20 11:16] VITALS: BP 122/84; TEMP 97.2
== END 2024-06-20 11:49 | disposition home or self-care (01) | DRG 287 ==
LOC: ERS 13:24 → ERHOLD 15:51 → 2NO 20:27 → OBSVTOIN 06-16 12:57
PROVIDERS: ADMIT Internal Medicine; ATTEND Internal Medicine
PROC: 4A023N7 Measurement of Cardiac Sampling and Pressure, Left Heart, Percutaneous Approach (ICD-10-PCS; principal; 2024-06-19)
PROC: B2111ZZ Fluoroscopy of Multiple Coronary Arteries using Low Osmolar Contrast (ICD-10-PCS; 2024-06-19)
PROC: B2151ZZ Fluoroscopy of Left Heart using Low Osmolar Contrast (ICD-10-PCS; 2024-06-19)
DX: I95.89 Other hypotension (principal); Z68.42 Body mass index [BMI] 45.0-49.9, adult; N17.9 Acute kidney failure, unspecified; F41.9 Anxiety disorder, unspecified; F32.A Depression, unspecified; E78.5 Hyperlipidemia, unspecified; E11.22 Type 2 diabetes mellitus with diabetic chronic kidney disease; N18.30 Chronic kidney disease, stage 3 unspecified; I12.9 Hypertensive chronic kidney disease with stage 1 through stage 4 chronic kidney disease, or unspecified chronic kidney disease; E66.01 Morbid (severe) obesity due to excess calories; Z88.2 Allergy status to sulfonamides; Z88.8 Allergy status to other drugs, medicaments and biological substances; Z98.51 Tubal ligation status; Z90.49 Acquired absence of other specified parts of digestive tract; Z98.890 Other specified postprocedural states; E03.9 Hypothyroidism, unspecified; D86.9 Sarcoidosis, unspecified
CPT/HCPCS: 36415; 36416; 71045; 71260; 78452; 80048; 80053; 80061; 80306; 80307; 81001; 82550; 83690; 83735; 83880; 84443; 84484; 85025; 85379; 86850; 86900; 86901; 93005; 93017; 93306; 93458; 96360; 96361; 99152; A9500; C1769; C1894; J0153; J1644; J2250; J2272; J2785; J3010; J3480; J7030; J7120; J7500; Q9967

== ENCOUNTER 2024-08-07 10:38 | Emergency (ER) | payer OTHER ==
[2024-08-07 11:22] LABS: #Basophils 0.05 10x3/uL (0.0-0.2); %Basophils 1.2 % (0.0-1.0); %Eosinophils 3.6 % (0.0-10.0); %Lymphocytes 32.6 % (21.0-51.0); %Monocytes 7.3 % (0.0-10.0); %Neutrophils 55.1 % (42.0-75.0); Hematocrit 40.1 % (36.0-47.0); Hemoglobin 13.2 g/dL (12.0-16.0); Mean Corpuscular HGB CONC 32.9 g/dL (32.0-36.0); Mean Corpuscular Hemoglobin 31.8 pg (27.0-31.0); Mean Corpuscular Volume 96.6 fL (78.0-98.0); Mean Platelet Volume 10.4 fL (7.4-10.4); Platelet Count 281 10x3/uL (130-400); RBC Distribution Width 15.9 % (11.5-14.5); Red Blood Cell (RBC) Count 4.15 mill/uL (4.20-5.40)
[2024-08-07 13:18] LABS: Troponin I Less than 0.010 ng/mL (< 0.028)
[2024-08-07] MEDS ORDERED: Acetaminophen 325 MG TAB ONE (13:25)
[2024-08-07 13:42] LABS: Calc. Creatinine Clearance 0 mL/min (70-130); Estimated GFR 61
[2024-08-07 14:22] LABS: Anion Gap 13 mmol/L (10-20); BUN (Urea Nitrogen) 8 mg/dL (9.8-20.1); Calcium 9.3 mg/dL (7.6-10.4); Carbon Dioxide 24 mmol/L (22-29); Chloride 106 mmol/L (98-107); Glucose 78 mg/dL (70-105); Potassium 4.4 mmol/L (3.5-5.1); Sodium 139 mmol/L (136-145)
[2024-08-07 14:23] LABS: ALT (SGPT) 8 U/L (8-55); AST (SGOT) 16 U/L (5-34); Albumin 3.6 g/dL (3.5-5.0); Alkaline Phosphatase 101 U/L (40-110); Bilirubin, Total 0.7 mg/dL (0.2-1.2); Globulin 3.4 g/dL (2.4-3.5)
[2024-08-07] MEDS ORDERED: Ondansetron PF 4 MG/2 ML Vial ONE (14:44)
[2024-08-07] MEDS ORDERED: Iopamidol-370 76% 500 ML MDV (1 ML CHARGE) ONE (15:48)
== END 2024-08-07 16:25 | disposition home or self-care (01) ==
LOC: ERS 10:38
DX: R07.9 Chest pain, unspecified (principal); D86.9 Sarcoidosis, unspecified; I10 Essential (primary) hypertension; E03.9 Hypothyroidism, unspecified; E78.5 Hyperlipidemia, unspecified; Z79.899 Other long term (current) drug therapy
CPT/HCPCS: 36415; 71045; 71275; 80053; 83880; 84484; 85025; 93005; 96374; J2405; Q9967

== ENCOUNTER 2024-08-08 13:31 | Emergency (ER) | payer OTHER ==
[2024-08-08] MEDS ORDERED: Acetaminophen 500 MG TAB ONE (14:04)
[2024-08-08] MEDS ORDERED: Iopamidol-370 76% 500 ML MDV (1 ML CHARGE) ONE (14:18)
[2024-08-08 14:30] LABS: #Basophils 0.07 10x3/uL (0.0-0.2); %Basophils 1.5 % (0.0-1.0); %Eosinophils 2.7 % (0.0-10.0); %Lymphocytes 25.1 % (21.0-51.0); %Monocytes 7.8 % (0.0-10.0); %Neutrophils 62.7 % (42.0-75.0); Hematocrit 40.5 % (36.0-47.0); Hemoglobin 13.3 g/dL (12.0-16.0); Mean Corpuscular HGB CONC 32.8 g/dL (32.0-36.0); Mean Corpuscular Volume 97.6 fL (78.0-98.0); Mean Platelet Volume 10.7 fL (7.4-10.4); Platelet Count 319 10x3/uL (130-400); RBC Distribution Width 15.9 % (11.5-14.5); Red Blood Cell (RBC) Count 4.15 mill/uL (4.20-5.40)
[2024-08-08 14:35] LABS: BHCG - Serum Negative (NEGATIVE); Pregs Control Background? CLEAR/WHITE (CLR/WHITE); Pregs Control Bar Appear? YES (CONTROL BAR)
[2024-08-08 14:38] LABS: Alcohol Less than 10.0 mg/dL (Less than 10)
[2024-08-08 14:41] LABS: ALT (SGPT) 8 U/L (8-55); AST (SGOT) 16 U/L (5-34); Alkaline Phosphatase 109 U/L (40-110); Anion Gap 11 mmol/L (10-20); BUN (Urea Nitrogen) 8 mg/dL (9.8-20.1); Bilirubin, Total 0.6 mg/dL (0.2-1.2); Calc. Creatinine Clearance 0 mL/min (70-130); Calcium 9.8 mg/dL (7.8-10.44); Carbon Dioxide 28 mmol/L (22-29); Chloride 105 mmol/L (98-107); Estimated GFR 50; Globulin 3.9 g/dL (2.4-3.5); Glucose 93 mg/dL (70-105); Lipase 29 U/L (8-78); Potassium 3.6 mmol/L (3.5-5.1); Protein, Total 7.9 g/dL (6.0-8.3); Sodium 140 mmol/L (136-145)
[2024-08-08 14:42] LABS: Acetaminophen Less than 10 mcg/mL (Less than 10); Alcohol Less than 10.0 mg/dL (Less than 10); Salicylate Less than 8.0 mg/dL (Less than 8.0)
[2024-08-08 16:24] LABS: Amphetamine Not Detected (NotDetected); Barbiturates Screen Not Detected (NotDetected); Benzodiazepine Screen Not Detected (NotDetected); Cocaine Metabolite Screen Not Detected (NotDetected); Methadone Not Detected (NotDetected); Methamphetamine Not Detected (NotDetected); Opiate Screen Detected (NotDetected); Oxycodone Screen Not Detected (NotDetected); Phencyclidine (PCP) Not Detected (NotDetected); THC/Cannabinoid Screen Not Detected (NotDetected); Tricyclic Screen Not Detected (NotDetected)
[2024-08-08 16:27] LABS: Bacteria/HPF None Seen HPF (None Seen); Bilirubin Negative (Negative); Blood, Urine Negative (Negative); CAUTI Indications for Culture Pelvic or flank pain; Clarity Clear (Clear); Glucose, Urine (Dipstick) Normal (Negative); Ketone, Urine Negative (Negative); Leukocyte Negative Leu/uL (Negative); Nitrite Negative (Negative); Protein, Urine (Dipstick) Negative (Neg-Trace); RBC/HPF 0-3 HPF (0-3); Squamous Epithelial 0-3 HPF (0-3); Urobilinogen Normal mg/dL (Less than 2); WBC/HPF 0-3 HPF (0-3); pH, Urine 6.5 (5.0-9.0)
[2024-08-08 16:34] LABS: Urine Culture Reflex No No
[2024-08-08] MEDS ORDERED: Metoclopramide HCl 10 MG TAB ONE (19:05)
== END 2024-08-08 19:34 | disposition home or self-care (01) ==
LOC: ERS 13:31
DX: R45.851 Suicidal ideations (principal); R10.30 Lower abdominal pain, unspecified; I10 Essential (primary) hypertension; E78.5 Hyperlipidemia, unspecified; E03.9 Hypothyroidism, unspecified; Z79.890 Hormone replacement therapy; Z79.899 Other long term (current) drug therapy
CPT/HCPCS: 36415; 74177; 80053; 80306; 80307; 81001; 83690; 84443; 84703; 85025; 93005; Q9967

== ENCOUNTER 2025-05-13 09:22 | Emergency (ER) | payer OTHER ==
[2025-05-13] MEDS ORDERED: Acetaminophen 325 MG TAB ONE (09:53)
[2025-05-13] MEDS ORDERED: Ondansetron PF 4 MG/2 ML Vial ONE ×2 (09:53→13:29)
[2025-05-13 10:05] LABS: #Basophils 0.05 10x3/uL (0.0-0.2); #Eosinophils 0.19 10x3/uL (0.0-0.7); #Monocytes 0.39 10x3/uL (0.11-0.59); #Neutrophils 2.61 10x3/uL (1.40-6.50); %Basophils 1.1 % (0.0-1.0); %Eosinophils 4.3 % (0.0-10.0); %Lymphocytes 27.1 % (21.0-51.0); %Monocytes 8.7 % (0.0-10.0); %Neutrophils 58.4 % (42.0-75.0); Hematocrit 43.1 % (36.0-47.0); Hemoglobin 13.7 g/dL (12.0-16.0); Mean Corpuscular Hemoglobin 27.5 pg (27.0-31.0); Mean Corpuscular Volume 86.5 fL (78.0-98.0); Platelet Count 183 10x3/uL (130-400); Red Blood Cell (RBC) Count 4.98 mill/uL (4.20-5.40); White Blood Cell (WBC) Count 4.47 10x3/uL (4.8-10.8)
[2025-05-13] MEDS ORDERED: Iopamidol-370 76% 500 ML MDV (1 ML CHARGE) ONE (10:12)
[2025-05-13 10:32] LABS: ALT (SGPT) 18 U/L (Less than 34); AST (SGOT) 35 U/L (11-34); Albumin 4.0 g/dL (3.1-4.5); Alkaline Phosphatase 126 U/L (40-110); Anion Gap 20 mmol/L (10-20); BHCG - Serum Negative (NEGATIVE); BUN (Urea Nitrogen) 16 mg/dL (9.8-20.1); Bilirubin, Total 0.4 mg/dL (0.3-1.2); Calc. Creatinine Clearance 0 mL/min (70-130); Calcium 9.6 mg/dL (7.8-10.44); Carbon Dioxide 24 mmol/L (22-29); Chloride 102 mmol/L (98-107); Globulin 3.9 g/dL (2.4-3.5); Glucose 107 mg/dL (70-105); Lipase 41 U/L (8-78); Potassium 3.7 mmol/L (3.5-5.1); Pregs Control Background? CLEAR/WHITE (CLR/WHITE); Pregs Control Bar Appear? YES (CONTROL BAR); Sodium 142 mmol/L (136-145)
[2025-05-13] MEDS ORDERED: Dicyclomine 20 MG TAB ONE (11:54)
[2025-05-13 11:58] LABS: Bacteria/HPF 1+ HPF (None Seen); CAUTI Indications for Culture Pelvic or flank pain; Glucose, Urine (Dipstick) Normal (Negative); Leukocyte 250 Leu/uL (Negative); Protein, Urine (Dipstick) Negative (Neg-Trace); RBC/HPF 0-3 HPF (0-3); Specific Gravity, Urine 1.009 (1.002-1.036); Urine Culture Reflex No No
== END 2025-05-13 13:41 | disposition home or self-care (01) ==
LOC: ERS 09:22
DX: N39.0 Urinary tract infection, site not specified (principal); N17.9 Acute kidney failure, unspecified; B34.9 Viral infection, unspecified; J90 Pleural effusion, not elsewhere classified; I10 Essential (primary) hypertension; E78.5 Hyperlipidemia, unspecified; K80.20 Calculus of gallbladder without cholecystitis without obstruction; D86.9 Sarcoidosis, unspecified; G89.29 Other chronic pain; M54.9 Dorsalgia, unspecified; R79.89 Other specified abnormal findings of blood chemistry
CPT/HCPCS: 74177; 80053; 81001; 83605; 83690; 84703; 85025; 87040; 87081; 87086; 87430; 96361; 96374; 96376; Q9967

== ENCOUNTER 2025-07-14 09:25 | Emergency (ER) | payer OTHER ==
[2025-07-14] MEDS ORDERED: Droperidol 5 MG/2 ML VIAL ONE (10:08)
[2025-07-14 10:37] LABS: #Basophils 0.07 10x3/uL (0.0-0.2); #Eosinophils 0.28 10x3/uL (0.0-0.7); #Monocytes 0.32 10x3/uL (0.11-0.59); #Neutrophils 2.79 10x3/uL (1.40-6.50); %Basophils 1.4 % (0.0-1.0); %Eosinophils 5.7 % (0.0-10.0); %Lymphocytes 28.7 % (21.0-51.0); %Monocytes 6.6 % (0.0-10.0); %Neutrophils 57.2 % (42.0-75.0); Hematocrit 43.5 % (36.0-47.0); Hemoglobin 14.0 g/dL (12.0-16.0); Mean Corpuscular Hemoglobin 28.0 pg (27.0-31.0); Mean Corpuscular Volume 87.0 fL (78.0-98.0); Platelet Count 187 10x3/uL (130-400); Red Blood Cell (RBC) Count 5.00 mill/uL (4.20-5.40); White Blood Cell (WBC) Count 4.88 10x3/uL (4.8-10.8)
[2025-07-14 10:53] LABS: ALT (SGPT) 18 U/L (Less than 34); AST (SGOT) 45 U/L (11-34); Albumin 4.2 g/dL (3.1-4.5); Alkaline Phosphatase 107 U/L (40-110); Anion Gap 11 mmol/L (10-20); BUN (Urea Nitrogen) 19 mg/dL (9.8-20.1); Bilirubin, Total 0.5 mg/dL (0.3-1.2); Calc. Creatinine Clearance 0 mL/min (70-130); Calcium 9.4 mg/dL (7.8-10.44); Carbon Dioxide 23 mmol/L (22-29); Chloride 104 mmol/L (98-107); Globulin 4.0 g/dL (2.4-3.5); Glucose 109 mg/dL (70-105); Lipase 75 U/L (8-78); Potassium 4.1 mmol/L (3.5-5.1); Sodium 134 mmol/L (136-145)
[2025-07-14 13:26] LABS: CAUTI Indications for Culture Dysuria,urgency,freq; Glucose, Urine (Dipstick) Normal (Negative); Leukocyte 75 Leu/uL (Negative); Protein, Urine (Dipstick) Negative (Neg-Trace); RBC/HPF 0-3 HPF (0-3); Specific Gravity, Urine 1.009 (1.002-1.036)
[2025-07-14 13:28] LABS: Bacteria/HPF 1+ HPF (None Seen)
[2025-07-14 13:31] LABS: Urine Culture Reflex Yes Yes
[2025-07-14] MEDS ORDERED: cefTRIAXone (ROCEPHIN) 1 GM VIAL ONE (14:15)
[2025-07-14 14:43] LABS: Anion Gap 14 mmol/L (10-20); BUN (Urea Nitrogen) 22 mg/dL (9.8-20.1); Calc. Creatinine Clearance 0 mL/min (70-130); Calcium 9.5 mg/dL (7.8-10.44); Carbon Dioxide 25 mmol/L (22-29); Chloride 103 mmol/L (98-107); Glucose 92 mg/dL (70-105); Potassium 4.4 mmol/L (3.5-5.1); Sodium 138 mmol/L (136-145)
== END 2025-07-14 15:52 | disposition home or self-care (01) ==
LOC: ERS 09:25
DX: N17.9 Acute kidney failure, unspecified (principal); I12.9 Hypertensive chronic kidney disease with stage 1 through stage 4 chronic kidney disease, or unspecified chronic kidney disease; N18.9 Chronic kidney disease, unspecified; N39.0 Urinary tract infection, site not specified; N13.30 Unspecified hydronephrosis; R42 Dizziness and giddiness; R29.700 NIHSS score 0
CPT/HCPCS: 70450; 74176; 80053; 81001; 83605; 83690; 84484; 85025; 87086; 87428; 93005; 96361; 96365; 96375; J0696; J1790

== ENCOUNTER 2025-07-19 15:24 | Emergency (ER) | payer OTHER ==
[2025-07-19 21:40] LABS: #Basophils 0.05 10x3/uL (0.0-0.2); #Eosinophils 0.14 10x3/uL (0.0-0.7); #Monocytes 0.62 10x3/uL (0.11-0.59); #Neutrophils 4.08 10x3/uL (1.40-6.50); %Basophils 0.8 % (0.0-1.0); %Eosinophils 2.3 % (0.0-10.0); %Lymphocytes 18.9 % (21.0-51.0); %Monocytes 10.2 % (0.0-10.0); %Neutrophils 67.1 % (42.0-75.0); Hematocrit 43.3 % (36.0-47.0); Hemoglobin 14.6 g/dL (12.0-16.0); Mean Corpuscular Hemoglobin 28.6 pg (27.0-31.0); Mean Corpuscular Volume 84.9 fL (78.0-98.0); Platelet Count 186 10x3/uL (130-400); Red Blood Cell (RBC) Count 5.10 mill/uL (4.20-5.40); White Blood Cell (WBC) Count 6.08 10x3/uL (4.8-10.8)
[2025-07-19 21:56] LABS: ALT (SGPT) 17 U/L (Less than 34); AST (SGOT) 38 U/L (11-34); Acetaminophen Less than 10 mcg/mL (Less than 10); Albumin 4.2 g/dL (3.1-4.5); Alkaline Phosphatase 113 U/L (40-110); Anion Gap 17 mmol/L (10-20); BUN (Urea Nitrogen) 12 mg/dL (9.8-20.1); Bilirubin, Total 0.4 mg/dL (0.3-1.2); Calc. Creatinine Clearance 0 mL/min (70-130); Calcium 9.8 mg/dL (7.8-10.44); Carbon Dioxide 22 mmol/L (22-29); Chloride 103 mmol/L (98-107); Globulin 3.8 g/dL (2.4-3.5); Glucose 98 mg/dL (70-105); Potassium 4.1 mmol/L (3.5-5.1); Salicylate Less than 8.0 mg/dL (Less than 8.0); Sodium 138 mmol/L (136-145)
[2025-07-19 23:32] LABS: Bacteria/HPF None Seen HPF (None Seen); CAUTI Indications for Culture Dysuria,urgency,freq; Glucose, Urine (Dipstick) Normal (Negative); Leukocyte 500 Leu/uL (Negative); Protein, Urine (Dipstick) Negative (Neg-Trace); RBC/HPF None Seen HPF (0-3); Specific Gravity, Urine 1.010 (1.002-1.036); WBC/HPF 0-3 HPF (0-3)
[2025-07-19 23:33] LABS: Urine Culture Reflex No No
[2025-07-19 23:40] LABS: Cocaine Metabolite Screen Negative (Negative); THC/Cannabinoid Screen Negative (Negative); Tricyclic Screen Negative (Negative)
== END 2025-07-20 02:14 | disposition psychiatric hospital, planned readmission (93) ==
LOC: ERS 15:24
DX: F22 Delusional disorders (principal); I10 Essential (primary) hypertension
CPT/HCPCS: 80306; 80307; 81001; 93005; 99285